=== PATIENT | female | born 1965 | race Two or more races ===

== ENCOUNTER 2018-05-07 16:17 | Inpatient (IN) | payer OTHER ==
[~2018-05-07] VITALS: Ht 144.8 cm; Wt 68.9 kg
[2018-05-07 16:22] VITALS: BP 130/82
[2018-05-07] MEDS ORDERED: Morphine Sulfate 4mg/ml Inj (IV USE ONLY) IVP ONE ×2 (16:45→18:00)
[2018-05-07] MEDS ORDERED: Ketorolac 30mg Inj IV ONE (16:45)
[2018-05-07 17:23] LABS: APPEARANCE,URINE SLIGHTLY CLOUDY; BASOPHILS % (AUTO) 0.9 % (0.0-2.0); BILIRUBIN, URINE NEGATIVE (NEGATIVE); EOSINOPHILS % (AUTO) 0.3 % (0.0-3.0); GLUCOSE, URINE (UA) 1+ (NEGATIVE); HEMOGLOBIN 14.6 G/DL (12.0-16.0); KETONES,URINE 2+ (NEGATIVE); LEUKOCYTE ESTERASE ,URINE 1+ (NEGATIVE); LYMPHOCYTES % (AUTO) 25.5 % (20.0-45.0); MEAN CORPUSCULAR VOLUME 88 FL (80-99); MONOCYTES % (AUTO) 3.7 % (1.0-10.0); NEUTROPHILS % (AUTO) 69.7 % (45.0-75.0); NITRITE,URINE NEGATIVE (NEGATIVE); PH,URINE 5 (4.5-8.0); PLATELET COUNT 227 K/UL (150-450); PROTEIN,URINE 1+ (NEGATIVE); RED BLOOD COUNT 5.21 M/UL (4.20-5.40); UROBILINOGEN,URINE 1 MG/DL (0.0-1.0); WHITE BLOOD COUNT 12.4 K/UL (4.8-10.8)
[2018-05-07 17:24] LABS: COLOR,URINE YELLOW
--- NOTE | 2018-05-07 17:27 | Emergency Room Report ---
History of Present Illness General Chief Complaint: Abdominal Pain Source: Patient Present Illness HPI Patient presents with 2 weeks of left flank pain. He rates down into her groin. She was seen by her doctor a week ago. Her doctor didn't perform any tests including urinalysis. He told her the pain was all in her head. She queried whether she might have a kidney stone and he said no that wasn't the problem. She occasionally has chills. When the pain gets severe she has nausea and vomiting. 2 days ago she passed a small amount of blood in the urine. She denies dysuria per se. She reports the pain is severe 10/10 and mostly constant. The pain is in her left flank and radiates to her groin. The patient is status post oophorectomy it's been 2 years since her last menstruation. She denies any diarrhea. No chest pain, palpitations, diarrhea, shortness of breath, depression, visual changes, headache. Allergies: Coded Allergies: No Known Allergies (Unverified , 05/07/18) Patient History Past Medical History: see triage record Social History: Denies: smoking, alcohol use, drug use Social History Narrative at home Reviewed Nursing Documentation: PMH: Agreed; PSxH: Agreed Nursing Documentation-PMH Past Medical History: No History, Except For Hx Diabetes: Yes Review of Systems All Other Systems: negative except mentioned in HPI Physical Exam Vital Signs Date Time Temp Pulse Resp B/P (MAP) Pulse Ox O2 Delivery O2 Flow Rate FiO2 05/07/18 16:22 98.2 80 16 130/82 99 Room Air Sp02 EP Interpretation: reviewed, normal General Appearance: well appearing, no apparent distress, GCS 15 Head: normocephalic Eyes: bilateral eye normal inspection, bilateral eye PERRL ENT: moist mucus membranes Neck: supple Respiratory: lungs clear, normal breath sounds Cardiovascular #1: regular rate, rhythm Cardiovascular #2: 2+ radial (R) Gastrointestinal: normal inspection, normal bowel sounds, non tender, no mass, non-distended Genitourinary: CVA tenderness (L) Musculoskeletal: back normal, gait/station normal, normal range of motion Neurologic: alert, oriented x3, grossly normal Psychiatric: anxious - And in pain Skin: normal inspection, warm/dry Medical Decision Making Diagnostic Impression: Primary Impression: Pyelonephritis Additional Impression: Intractable left flank pain ER Course Patient presents with left flank pain. Differential includes renal stone, pyelonephritis, diverticulitis amongst others. Evaluation will be with labs and CT abdomen pelvis. The patient will be treated with IV hydration and analgesia. Labs significant for leukocytosis. Also there is pyuria. Patient still with severe pain. Dilaudid ordered. Antibiotics ordered. CT with questionable calcification near the floor of the bladder (see full report below). I discussed the possibility of renal stone with the radiologist who feels that these are phleboliths. Patient still in severe pain. Dilaudid is repeated. Due to the unknown etiology of the severe pain and the possibility of pyelonephritis the patient is admitted for further evaluation and treatment. Laboratory Tests Test 05/07/18 17:05 05/08/18 04:00 White Blood Count 12.4 K/UL (4.8-10.8) H 10.0 K/UL (4.8-10.8) Red Blood Count 5.21 M/UL (4.20-5.40) 4.04 M/UL (4.20-5.40) L Hemoglobin 14.6 G/DL (12.0-16.0) 11.6 G/DL (12.0-16.0) L Hematocrit 46.0 % (37.0-47.0) 35.9 % (37.0-47.0) L Mean Corpuscular Volume 88 FL (80-99) 89 FL (80-99) Mean Corpuscular Hemoglobin 28.0 PG (27.0-31.0) 28.8 PG (27.0-31.0) Mean Corpuscular Hemoglobin Concent 31.6 G/DL (32.0-36.0) L 32.4 G/DL (32.0-36.0) Red Cell Distribution Width 13.0 % (11.6-14.8) 13.1 % (11.6-14.8) Platelet Count 227 K/UL (150-450) 258 K/UL (150-450) Mean Platelet Volume 8.2 FL (6.5-10.1) 6.4 FL (6.5-10.1) L Neutrophils (%) (Auto) 69.7 % (45.0-75.0) 70.6 % (45.0-75.0) Lymphocytes (%) (Auto) 25.5 % (20.0-45.0) 23.0 % (20.0-45.0) Monocytes (%) (Auto) 3.7 % (1.0-10.0) 5.1 % (1.0-10.0) Eosinophils (%) (Auto) 0.3 % (0.0-3.0) 0.7 % (0.0-3.0) Basophils (%) (Auto) 0.9 % (0.0-2.0) 0.6 % (0.0-2.0) Urine Color Yellow Urine Appearance Slightly cloudy Urine pH 5 (4.5-8.0) Urine Specific [place] 1.025 (1.005-1.035) Urine Protein 1+ (NEGATIVE) H Urine Glucose (UA) 1+ (NEGATIVE) H Urine Ketones 2+ (NEGATIVE) H Urine Blood 1+ (NEGATIVE) H Urine Nitrite Negative (NEGATIVE) Urine Bilirubin Negative (NEGATIVE) Urine Urobilinogen 1 MG/DL (0.0-1.0) H Urine Leukocyte Esterase 1+ (NEGATIVE) H Urine RBC 0-2 /HPF (0 - 2) Urine WBC 10-15 /HPF (0 - 2) H Urine Squamous Epithelial Cells Moderate /LPF (NONE/OCC) H Urine Bacteria Few /HPF (NONE) Sodium Level 139 MMOL/L (136-145) 142 MMOL/L (136-145) Potassium Level 4.5 MMOL/L (3.5-5.1) 3.8 MMOL/L (3.5-5.1) Chloride Level 101 MMOL/L (98-107) 107 MMOL/L (98-107) Carbon Dioxide Level 25 MMOL/L (21-32) 25 MMOL/L (21-32) Anion Gap 13 mmol/L (5-15) 10 mmol/L (5-15) Blood Urea Nitrogen 13 mg/dL (7-18) 17 mg/dL (7-18) Creatinine 1.0 MG/DL (0.55-1.30) 0.9 MG/DL (0.55-1.30) Estimate Glomerular Filtration Rate 58.7 mL/min (>60) > 60 mL/min (>60) Glucose Level 222 MG/DL (74-106) H 203 MG/DL (74-106) H Calcium Level 9.5 MG/DL (8.5-10.1) 8.4 MG/DL (8.5-10.1) L Total Bilirubin 0.2 MG/DL (0.2-1.0) 0.2 MG/DL (0.2-1.0) Aspartate Amino Transferase (AST) 26 U/L (15-37) 17 U/L (15-37) Alanine Aminotransferase (ALT) 31 U/L (12-78) 27 U/L (12-78) Alkaline Phosphatase 112 U/L (46-116) 95 U/L (46-116) Total Protein 8.7 G/DL (6.4-8.2) H 6.9 G/DL (6.4-8.2) Albumin 3.6 G/DL (3.4-5.0) 2.9 G/DL (3.4-5.0) L Globulin 5.1 g/dL 4.0 g/dL Albumin/Globulin Ratio 0.7 (1.0-2.7) L 0.7 (1.0-2.7) L Lipase 153 U/L (73-393) Hemoglobin A1c 12.0 % (4.3-6.0) H Phosphorus Level 4.0 MG/DL (2.5-4.9) Magnesium Level 1.5 MG/DL (1.8-2.4) L Rhythm Strip Diag. Results EP Interpretation: yes Rhythm: NSR, no PVC's, no ectopy CT/MRI/US Diagnostic Results CT/MRI/US Diagnostic Results : Imaging Test Ordered: Abdomen/pelvis Impression Impression: 2 mm calculus in or adjacent to the floor the bladder, could represent a recently passed stone. However, there is no evidence of hydronephrosis, hydroureter, or perinephric inflammation to suggest such otherwise. Gastric distention, presumably related to recent meal as no definite obstructive lesion is demonstrated at the left lung base No other acute findings Two right lower lobe 2 mm nodules. There is no significant smoking history, no further follow-up is necessary. There is significant smoking history or other risk factors for lung carcinoma, then short interval follow-up in 6-12 months is recommended Evidence old granulomatous disease Last Vital Signs Date Time Temp Pulse Resp B/P (MAP) Pulse Ox O2 Delivery O2 Flow Rate FiO2 05/08/18 08:00 98.2 86 18 124/68 (86 97 05/08/18 03:20 Room Air Status: improved Disposition: ADMITTED INPATIENT Condition: Serious Scripts Unable to Obtain Active Prescriptions or Reported Meds Hrarison Denise MD May 07, 2018 17:27
[2018-05-07] MEDS ORDERED: cefTRIAXone 1 GM in NS 55 ML IVPB ONE (17:45)
[2018-05-07 17:50] LABS: ANION GAP 13 mmol/L (5-15); BLOOD UREA NITROGEN 13 mg/dL (7-18); CALCIUM 9.5 MG/DL (8.5-10.1); CARBON DIOXIDE 25 MMOL/L (21-32); CHLORIDE 101 MMOL/L (98-107); POTASSIUM 4.5 MMOL/L (3.5-5.1); SODIUM 139 MMOL/L (136-145)
[2018-05-07 17:55] LABS: ALANINE AMINOTRANSFERASE 31 U/L (12-78); ALBUMIN 3.6 G/DL (3.4-5.0); ALBUMIN/GLOBULIN RATIO 0.7 (1.0-2.7); ALKALINE PHOSPHATASE 112 U/L (46-116); ASPARTATE AMINO TRANSFERASE 26 U/L (15-37); BILIRUBIN,TOTAL 0.2 MG/DL (0.2-1.0)
[2018-05-07 18:54] VITALS: BP 120/73
[2018-05-07] MEDS ORDERED: HYDROmorphone 1mg/ml Carpuject IVP ONE ×2 (19:30→23:00)
--- NOTE | 2018-05-07 19:35 | NUR ---
ED Nurse Note: RECIEVED REPORT FROM AM NURSE TO RESUME CARE, PT IN BED AWAKE, ALERT AND ORIENTED X 4, PT IS CRYING DUE TO ABDOMINAL PAIN, PT HAS BEEN MEDICTED WITH MORPHINE X 2 AND STATES NOT EFFECTIVE, MD AT BEDSIDE AND WILL ORDER NEW MEDS, PT IS ON CARDIAC MONITORING, IV SITE PATENT, WILL RESUME CARE ORDERED AND PREPARE FOR HOSPITAL ADMISSION FOR PYELONEPHRITIS.
[2018-05-07 20:00] VITALS: BP 155/79
--- NOTE | 2018-05-07 21:00 | NUR ---
ED Nurse Note: pt continues to rest in bed, awake and alert, pt medicated for pain, states meds not really effective, pt rates pain at 7/10 and constantly asking for more pain meds, pt is to be admitted to hospital, attempted to do med rec, pt can not recall any of her meds, states she takes 3 meds daily for depression and also takes insulin, pt has no one whom can bring meds or recall them to her, pt states maybe her daughter can bring them in am, pt iv site patent, fluids infusing, deneis cp, no sob or labored breathing, remains on cardiac monitoring, will resume care as ordered and continue to closely monitor.
[2018-05-07 21:30] VITALS: BP 161/80
--- NOTE | 2018-05-07 23:00 | NUR ---
ED Nurse Note: Pt has room for admission, pt continues to state her pain is at 10/10, md at bedside and speaking with pt, pt appears sedated, eyes red and pt sleeping but states she feels no better, remains with iv fluids as ordered, will continue to closely monitor and preapre for admission.
[2018-05-07 23:15] VITALS: BP 117/67
--- NOTE | 2018-05-07 23:35 | NUR ---
ED Nurse Note: PT HAS ROOM FOR ADMISISON, REPORT CALLED TO ARMINDA ARANDA ON FLOOR, PT IS IN BED AWAKE AND ALERT, IV SITE PATENT WITH FLUIDS INFUSING, PT TOLERATING WELL, PT CONTINUES TO STATE HER PAIN IS AT 10/10, NO CP, NO SOB OR LABORED BREATHING, BELONGINGS LIST COMPLETED, PT BEING TAKEN TO FLOOR BED VIA GURNEY WITH [facility], NAD NOTED DURING PT TRANSFER TO FLOOR FOR ADMISSION.
--- NOTE | 2018-05-08 01:13 | NUR ---
NURSE NOTES: Patient arrived from ED @ 0000 patient is aox4. VSS, [place] speaking. Left flank pain 10/10, ambulatory. Oriented to room, Side rails upx2. Bed low, call light within reach.
[2018-05-08] MEDS: HYDROmorphone 1mg/ml Carpuject IVP PRN ×6 (02:11→19:08)
[2018-05-08 04:00] VITALS: BP 124/71
[2018-05-08] MEDS: Heparin 5000 units/ml inj SUBQ SCH ×3 (06:34→22:32)
[2018-05-08] MEDS: NovoLOG Insulin Flexpen SUBQ SCH ×4 (06:35→22:30)
[2018-05-08] MEDS ORDERED: Zolpidem 5mg tab ORAL PRN (07:15)
[2018-05-08 08:00] VITALS: BP 124/68
[2018-05-08 08:00] LABS: ALANINE AMINOTRANSFERASE 27 U/L (12-78); ALBUMIN 2.9 G/DL (3.4-5.0); ALBUMIN/GLOBULIN RATIO 0.7 (1.0-2.7); ALKALINE PHOSPHATASE 95 U/L (46-116); ANION GAP 10 mmol/L (5-15); ASPARTATE AMINO TRANSFERASE 17 U/L (15-37); BILIRUBIN,TOTAL 0.2 MG/DL (0.2-1.0); BLOOD UREA NITROGEN 17 mg/dL (7-18); CALCIUM 8.4 MG/DL (8.5-10.1); CARBON DIOXIDE 25 MMOL/L (21-32); CHLORIDE 107 MMOL/L (98-107); CREATININE 0.9 MG/DL (0.55-1.30); POTASSIUM 3.8 MMOL/L (3.5-5.1); SODIUM 142 MMOL/L (136-145)
--- NOTE | 2018-05-08 08:05 | NUR ---
NURSE NOTES: Received patient on bed, awake. IV site dislodged. Will attempt to start new one. Bed in low and locked position, call light within reach. No signs of respiratory distress or pain. Room board updated, will continue to monitor.
[2018-05-08 08:15] LABS: BASOPHILS % (AUTO) 0.6 % (0.0-2.0); EOSINOPHILS % (AUTO) 0.7 % (0.0-3.0); HEMATOCRIT 35.9 % (37.0-47.0); HEMOGLOBIN 11.6 G/DL (12.0-16.0); MEAN CORPUSCULAR VOLUME 89 FL (80-99); MONOCYTES % (AUTO) 5.1 % (1.0-10.0); NEUTROPHILS % (AUTO) 70.6 % (45.0-75.0); PLATELET COUNT 258 K/UL (150-450); RED BLOOD COUNT 4.04 M/UL (4.20-5.40); RED CELL DISTRIBUTION WIDTH 13.1 % (11.6-14.8)
--- NOTE | 2018-05-08 08:29 | NUR ---
HAND-OFF: Report given to ARMINDA gipson. Patient stable.
--- NOTE | 2018-05-08 08:37 | Diagnostic Imaging Report ---
Indication: Abdominal pain Technique: Spiral acquisitions obtained through the abdomen and pelvis. No oral or IV contrast utilized, per urinary stone protocol. Multiplanar reconstructions were generated. Total dose length product 925.68 mGycm. CTDIvol(s) 18.16 mGy. Dose reduction achieved using automated exposure control Comparison: none Findings: No renal or ureteral calculi, hydronephrosis, or hydroureter. As no downstream obstructive lesion is demonstrated. However, a 2 mm calcification is seen at the floor of the bladder. Uncertain as to whether intraluminal or intramural. There is no perinephric fat stranding. Lack of IV contrast limits assessment of the renal parenchyma; no gross renal parenchymal mass or cyst demonstrated. Lack of IV contrast limits assessment of the other solid organs. The gallbladder is nondistended. No definite gallstones. Liver, bile ducts, pancreas, spleen, adrenals are all unremarkable. No retroperitoneal or mesenteric mass or adenopathy. No pelvic mass or adenopathy. Uterus and ovaries are unremarkable. The stomach is distended with food. The duodenum and small bowel are normal in caliber. The appendix is normal. No evidence of diverticulosis or diverticulitis. No free or loculated intraperitoneal gas or fluid is evident. The distal esophagus is unremarkable. Two 2 mm nodules are seen at the right lung base, one on image 4 series 7 and the other on image 22. There is also a calcified nodule at the left lung base The bones demonstrate degenerative spondylosis changes. Impression: 2 mm calculus in or adjacent to the floor the bladder, could represent a recently passed stone. However, there is no evidence of hydronephrosis, hydroureter, or perinephric inflammation to suggest such otherwise. Gastric distention, presumably related to recent meal as no definite obstructive lesion is demonstrated at the left lung base No other acute findings Two right lower lobe 2 mm nodules. There is no significant smoking history, no further follow-up is necessary. There is significant smoking history or other risk factors for lung carcinoma, then short interval follow-up in 6-12 months is recommended Evidence old granulomatous disease This agrees with the preliminary interpretation provided overnight by [facility]. The CT scanner at [facility] is accredited by the [employer] and the scans are performed using protocols designed to limit radiation exposure to as low as reasonably achievable to attain images of sufficient resolution adequate for diagnostic evaluation.
--- NOTE | 2018-05-08 14:54 | NUR ---
NURSE NOTES: QAccidentally threw dilaudid dose in 314 sharp container before giving to patient and after scanning the medication. Pharmacy was notified and spoke to Willy who stated to waste the dose and undo admin scan and take out another dose from [facility]. Charge nurse Supriya was notified and wawste recorded. New dose given. [facility] notified mas well to attempt to get medication from sharps container to waste properly.
--- NOTE | 2018-05-08 14:55 | Diagnostic Imaging Report ---
Indication: Flank pain Technique: Grayscale and duplex images of the kidneys, retroperitoneum, and bladder were obtained. Comparison: Reference made to abdomen pelvis CT 05/07/2018 Findings: Right kidney measures 11.9 cm in length. Left kidney measures 13 cm in length. Both kidneys demonstrate normal echogenicity. There is minimal fullness of the left renal collecting system but no eder hydronephrosis. No focal abnormality. Normal inferior vena cava. Bladder demonstrates a hyperechoic focus at the floor, corresponding to the finding described on recent CT scan, although measuring larger than the CT abnormality 7 mm. Bilateral ureteral jets are demonstrated. Impression: Possible bladder floor calculus, may correspond to finding reported on recent CT scan and could represent a recently passed stone, versus a mural calcification Negative for hydronephrosis or other significant abnormality.
--- NOTE | 2018-05-08 14:58 | NUR ---
NURSE NOTES: Spoke to Elena of [facility] who stated that [facility] does not have the ability to access the sharps container and that tehy are sent as is to the contractor. Charge nurse made aware.
[2018-05-08 16:00] VITALS: BP 106/59
--- NOTE | 2018-05-08 16:30 | NUR ---
NURSE NOTES: Scheduled sliding scale novolog not given as patient is not wanting to eat. Charge nurse made aware.
[2018-05-08] MEDS: cefTRIAXone 1 GM in D5W 55 ML IVPB SCH (17:43)
--- NOTE | 2018-05-08 17:44 | History & Physical ---
History and Physical History & Physicial Garcia Augustine MD May 08, 2018 17:44
--- NOTE | 2018-05-08 19:45 | NUR ---
HAND-OFF: Report given to RN Cleheidi.
--- NOTE | 2018-05-08 19:49 | NUR ---
NURSE NOTES: Received report from ARMINDA Terry.
--- NOTE | 2018-05-08 22:15 | Consultation ---
DATE OF CONSULTATION: 05/08/2018 CONSULTING PHYSICIAN: Jasson Livingston M.D. REFERRING PHYSICIAN: Garcia Augustine M.D. REASON FOR CONSULTATION: Evaluation of abdominal pain. HISTORY OF PRESENT ILLNESS: This is a 52-year-old female. She was admitted to the hospital because of left-sided abdominal flank pain. She has some urinary frequency. There was a question of hematuria. Urology evaluation requested. The patient is still having pain at this time. PAST MEDICAL HISTORY: Significant for diabetes. CURRENT MEDICATIONS: List is was reviewed. ALLERGIES: No known drug allergies. SOCIAL HISTORY: Nonsmoker. PHYSICAL EXAMINATION: GENERAL: No acute distress. VITAL SIGNS: Temperature is 98. ABDOMEN: Soft. Slightly tender on the left side. No significant CVA tenderness. LABORATORY DATA: UA showed 10 to 15 WBCs, 1+ protein, 0 to 2 RBCs. White count is 10.0, hemoglobin 11.6. BUN is 17, creatinine 0.9. Her urine culture is pending. DIAGNOSTIC IMAGING STUDIES: The patient had a CT scan of the abdomen and pelvis yesterday. There was no renal or ureteral calculi. There was no hydronephrosis. There was mention of a 2 mm calcification in the bladder. She had a renal ultrasound also, which did not show any hydronephrosis. There was some minimal fullness of left renal collecting system. IMPRESSION: 1. Abdominal pain, etiology uncertain, possibly secondary to a recently passed ureteral calculus. 2. Hematuria history. 3. Pyuria. 4. Proteinuria. 5. Urinary frequency. 6. Small bladder calculus. PLAN AND DISCUSSION: The patient did have left-sided pain. This could possibly because of the recently passed stone. However, at this time, there was no residual stones in the ureter or hydronephrosis and she may just have pain from irritation of the ureter and I would recommend just monitoring clinically. Other etiologies can also be considered. At some point, she can have a cystoscopy to evaluate the bladder. The above was discussed with the patient and her . Thank you for this consultation. Jasson Livingston M.D. DR: UDAY JOB#: [id number] CC:
[2018-05-08] MEDS: LATUDA 60 MG ORAL SCH (22:28)
[2018-05-08] MEDS: TraZODone 100mg tab ORAL SCH (22:28)
[2018-05-08] MEDS: Norco 5mg/325mg tab ORAL PRN (22:29)
--- NOTE | 2018-05-08 23:32 | NUR ---
NURSE NOTES: Patient is aox4 vss no shorness of breath. [place] given for pain. Benadryl given for itching. Due meds given, needs attended to. Bed low, call light within reach.
[2018-05-09] VITALS: BP 98/46
--- NOTE | 2018-05-09 01:30 | History and Physical Report ---
DATE OF ADMISSION: 05/07/2018 CHIEF COMPLAINT: Left flank pain. HISTORY OF PRESENT ILLNESS: This is a 52-year-old female with past medical history significant for diabetes type 2, morbid obesity, history of ovariectomy two years ago, who was presented to the emergency room complaining about the left flank pain, progressively worsening for past two weeks, pain radiated down to the groin and seen by her primary doctor a week ago. Her doctor did not perform any test or urinalysis. Pain became progressively worsening. Shortly after initial evaluation in the emergency, the patient was admitted to hospital with left flank pain, possible pyelonephritis versus renal calculus. PAST MEDICAL HISTORY AND PAST SURGICAL HISTORY: As above. History of diabetes type 2, morbid obesity, and history of ovariectomy. MEDICATIONS AT HOME: Please refer to medication reconciliation. ALLERGIES: No known drug allergies. SOCIAL HISTORY: Denies any smoking, alcohol, or drugs. FAMILY HISTORY: Noncontributory. REVIEW OF SYSTEMS: Mostly as above. PHYSICAL EXAMINATION: VITAL SIGNS: On admission, temperature 98.2 degrees, pulse of 80, respirations 16, and blood pressure 130/82. GENERAL: The patient is awake, responsive, and not in acute distress. HEENT: Head and neck examination, pupils are reactive to light. Extraocular movements are intact. Neck was supple. No JVD. LUNGS: Good air entry. No wheezing or rales. HEART: S1 and S2. Distant heart sounds. No murmurs or gallops. ABDOMEN: Soft, morbidly obese, tender in the left flank area, left lower quadrant. No rebound tenderness. No fluid shift. EXTREMITIES: No cyanosis, clubbing, or edema. NEUROLOGIC: Cranial nerves II through XII grossly intact. Motor is 5/5 in all extremities. Gait is intact. LABORATORY AND IMAGING DATA: On admission from the ER, WBC of 12, hemoglobin of 14, hematocrit 46, and platelet is 227,000. Sodium 139, potassium 4.5, chloride 101, bicarbonate 25, BUN of 13, creatinine 1.0, and glucose is 222. Hemoglobin A1c is 12. Calcium is 9.5. AST of 26 and ALT of 31. Urinalysis +1 protein, +1 glucose, ketone +2, 10 to 15 WBC, and +1 leukocytes. The patient has CT scan of the abdomen done in the ER, which noted to be 2 mm calculi in or adjacent to the floor of the bladder, could represent recently passed stone. However, no evidence of the hydronephrosis, hydrouria, or perinephric inflammation to suggest otherwise gastric distention, presumably related to the recent ____ as no definitive obstructive lesion is demonstrated at the left lung base. No other acute finding to right lower lobe 2 mm nodule. There is no evidence of the smoking history. No further followup necessary. Evidence of the old granulomatous disease. ASSESSMENT: 1. Left flank pain as well as left lower quadrant abdominal pain, possible due to renal calculi, however, cannot rule out infectious etiology such as UTI or pyelonephritis. 2. Diabetes type 2. 3. Morbid obesity. PLAN: Admit the patient to medical floor. We will follow up with cultures, broad-spectrum antibiotic Rocephin, and Accu-Chek with sliding scale. Discussed the case with Dr. Livingston from Urology. Code status is Full Code. DVT prophylaxis. Heparin subcutaneous. We will follow up with a renal ultrasound to rule out any possibility of the obstruction. Garcia Augustine M.D. DR: FRANCISCO JOB#: [id number] CC:
[2018-05-09 04:00] VITALS: BP 127/69
[2018-05-09] MEDS: NovoLOG Insulin Flexpen SUBQ SCH ×4 (06:30→20:13)
[2018-05-09] MEDS: HYDROmorphone 1mg/ml Carpuject IVP PRN ×3 (06:48→20:32)
[2018-05-09] MEDS: Heparin 5000 units/ml inj SUBQ SCH ×3 (06:49→21:05)
[2018-05-09 07:08] LABS: EOSINOPHILS % (AUTO) 1.5 % (0.0-3.0); HEMATOCRIT 36.5 % (37.0-47.0); LYMPHOCYTES % (AUTO) 37.3 % (20.0-45.0); MEAN CORPUSCULAR VOLUME 87 FL (80-99); MONOCYTES % (AUTO) 5.7 % (1.0-10.0); NEUTROPHILS % (AUTO) 54.5 % (45.0-75.0); PLATELET COUNT 277 K/UL (150-450); RED BLOOD COUNT 4.19 M/UL (4.20-5.40); RED CELL DISTRIBUTION WIDTH 12.8 % (11.6-14.8); WHITE BLOOD COUNT 6.3 K/UL (4.8-10.8)
[2018-05-09 07:18] LABS: ANION GAP 5 mmol/L (5-15); BLOOD UREA NITROGEN 4 mg/dL (7-18); CALCIUM 9.2 MG/DL (8.5-10.1); CARBON DIOXIDE 30 MMOL/L (21-32); CHLORIDE 107 MMOL/L (98-107); CREATININE 0.7 MG/DL (0.55-1.30); PHOSPHORUS 4.5 MG/DL (2.5-4.9); POTASSIUM 4.2 MMOL/L (3.5-5.1); SODIUM 141 MMOL/L (136-145)
[2018-05-09 08:00] VITALS: BP 145/62
[2018-05-09] MEDS: LORazepam 1mg tab ORAL SCH ×2 (08:39→18:31)
[2018-05-09] MEDS: metFORMIN 500mg tab ORAL SCH ×2 (08:40→18:30)
[2018-05-09] MEDS: Citalopram Hydrobromide 10mg Tab ORAL SCH (08:40)
[2018-05-09] MEDS: Norco 5mg/325mg tab ORAL PRN ×2 (08:41→17:06)
--- NOTE | 2018-05-09 08:49 | NUR ---
HAND-OFF: Report given to ARMINDA Baker. Patient stable.
--- NOTE | 2018-05-09 08:51 | NUR ---
NURSE NOTES: Received pt from ARMINDA Ugalde. pt was resting c/o lefts side flank pain. assisted to use bathroom, no acute distress
--- NOTE | 2018-05-09 09:18 | Urology Progress Note ---
Assessment/Plan Assessment/Plan 1. Abdominal pain, etiology uncertain, possibly secondary to a recently passed ureteral calculus. 2. Hematuria history. 3. Pyuria. 4. Proteinuria. 5. Urinary frequency. 6. Small bladder calculus. still with pain monitor clinically f/u on urine cx on abx Subjective Allergies: Coded Allergies: No Known Allergies (Unverified , 05/07/18) Subjective all noted, still with pain Objective Last 24 Hour Vital Signs Date Time Temp Pulse Resp B/P (MAP) Pulse Ox O2 Delivery O2 Flow Rate FiO2 05/09/18 04:00 98.4 77 17 127/69 (88) 98 05/09/18 00:00 98.5 83 17 98/46 (63) 98 05/08/18 21:00 Room Air 05/08/18 16:00 98.2 83 16 106/59 (75) 94 Intake and Output 05/08/18 05/09/18 19:00 07:00 Intake Total 730 ml 1145 ml Balance 730 ml 1145 ml Intake Oral 320 ml IV Total 730 ml 825 ml # Voids 2 Microbiology Date/Time Source Procedure Growth Status 05/08/18 12:30 Urine,Clean Catch Urine Culture - Preliminary NO GROWTH Resulted Current Medications Medications (Trade) Dose Ordered Sig/Edil Route PRN Reason Start Time Stop Time Status Last Admin Dose Admin Acetaminophen (Tylenol) 650 mg Q6H PRN ORAL Mild Pain/Temp > 100.5 05/08/18 01:30 06/07/18 01:29 Acetaminophen/ Hydrocodone Bitart ([place] 5/325) 1 tab Q6H PRN ORAL Moderate Pain (Pain Scale 4-6) 05/08/18 07:00 05/15/18 06:59 05/09/18 08:41 Ceftriaxone Sodium 1 gm/ Dextrose 55 ml @ 110 mls/hr Q24H IVPB 05/08/18 17:00 05/15/18 16:59 05/08/18 17:43 Citalopram Hydrobromide (celeXA) 40 mg DAILY ORAL 05/09/18 09:00 06/08/18 08:59 05/09/18 08:40 Dextrose (Dextrose 50%) 25 ml Q30M PRN IV Hypoglycemia 05/08/18 01:30 06/07/18 01:29 Dextrose (Dextrose 50%) 50 ml Q30M PRN IV Hypoglycemia 05/08/18 01:30 06/07/18 01:29 Diphenhydramine HCl (Benadryl) 25 mg Q6H PRN ORAL Itching 05/08/18 15:45 06/07/18 15:44 05/09/18 08:43 Heparin Sodium (Porcine) (Heparin 5000 units/ml) 5,000 units EVERY 8 HOURS SUBQ 05/08/18 06:00 06/07/18 05:59 05/09/18 06:49 Hydromorphone HCl (Dilaudid) 1 mg Q4H PRN IVP Severe Pain (Pain Scale 7-10) 05/08/18 01:30 05/15/18 01:29 05/09/18 06:48 Insulin Aspart (NovoLOG) BEFORE MEALS AND HS SUBQ 05/08/18 06:30 06/07/18 06:29 05/08/18 22:30 Lorazepam (Ativan) 1 mg BID ORAL 05/09/18 09:00 05/16/18 08:59 05/09/18 08:39 Metformin HCl (Glucophage) 1,000 mg BID ORAL 05/09/18 09:00 06/08/18 08:59 05/09/18 08:40 Ondansetron HCl (Zofran) 4 mg Q4H PRN IVP Nausea & Vomiting 05/08/18 01:30 06/07/18 01:29 Patient Own Medication (Patient's Own Med) 1 ea QPM ORAL 05/08/18 20:32 06/07/18 20:31 05/08/18 22:28 Sodium Chloride 1,000 ml @ 75 mls/hr [id number] IV 05/08/18 02:00 06/07/18 01:59 05/09/18 04:40 Trazodone HCl (Desyrel) 300 mg BEDTIME ORAL 05/08/18 21:00 06/07/18 20:59 05/08/18 22:28 Zolpidem Tartrate (Ambien) 5 mg HSPRN PRN ORAL Insomnia 05/08/18 07:15 05/15/18 07:14 Laboratory Tests 05/09/18 05:45: White Blood Count 6.3, Red Blood Count 4.19L, Hemoglobin 12.0, Hematocrit 36.5L , Mean Corpuscular Volume 87, Mean Corpuscular Hemoglobin 28.6, Mean Corpuscular Hemoglobin Concent 32.8, Red Cell Distribution Width 12.8, Platelet Count 277, Mean Platelet Volume 7.2, Neutrophils (%) (Auto) 54.5, Lymphocytes (% ) (Auto) 37.3, Monocytes (%) (Auto) 5.7, Eosinophils (%) (Auto) 1.5, Basophils ( %) (Auto) 1.0, Sodium Level 141, Potassium Level 4.2, Chloride Level 107, Carbon Dioxide Level 30, Anion Gap 5, Blood Urea Nitrogen 4L, Creatinine 0.7, Estimat Glomerular Filtration Rate > 60, Glucose Level 154H, Calcium Level 9.2, Phosphorus Level 4.5, Magnesium Level 1.7L Height (Feet): 5 Height (Inches): 0.00 Weight (Pounds): 180 Objective exam Jasson Livingston MD May 09, 2018 09:18
[2018-05-09 12:00] VITALS: BP 120/74
--- NOTE | 2018-05-09 13:38 | NUR ---
CASE MANAGEMENT: INITIAL REVIEW 52 YO F BIBA FROM HOME CC: ABD PAIN PMHx: DM SI:PYELONEPHRITIS. INTRACTABLE FALNK PAIN. T 98.2 HR 80 RR 16 B/P 130/82 SATS 99% ON RA WBC 12.4 GLU 222 IS: TORADOL IV X1 ZOFRAN IV X1 MORPHINE IV X1 NS BOLUS X2 CEFTRIAXONE IV X1 DILAUDID IV X1 PATIENT TO BE ADMITTED TO MED/SURG 05/07/2018 @ 2006 DCP: PATIENT TO BE DISCHARGED TO HOME ONCE MEDICALLY CLEARED. PLAN OF CARE: follow up with cultures broad-spectrum antibiotic Rocephin Accu-Chek with sliding scale
[2018-05-09 16:00] VITALS: BP 118/76
[2018-05-09] MEDS: LATUDA 60 MG ORAL SCH (17:12)
[2018-05-09] MEDS: cefTRIAXone 1 GM in D5W 55 ML IVPB SCH (18:31)
--- NOTE | 2018-05-09 19:08 | Internal Med Progress Note ---
Subjective Date of Service: May 09, 2018 Physician Name Robbie Woodard Attending Physician Garcia Augustine MD Current Medications Medications (Trade) Dose Ordered Sig/Edil Route PRN Reason Start Time Stop Time Status Last Admin Dose Admin Acetaminophen (Tylenol) 650 mg Q6H PRN ORAL Mild Pain/Temp > 100.5 05/08/18 01:30 06/07/18 01:29 Acetaminophen/ Hydrocodone Bitart ([place] 5/325) 1 tab Q6H PRN ORAL Moderate Pain (Pain Scale 4-6) 05/08/18 07:00 05/15/18 06:59 05/09/18 17:06 Ceftriaxone Sodium 1 gm/ Dextrose 55 ml @ 110 mls/hr Q24H IVPB 05/08/18 17:00 05/15/18 16:59 05/09/18 18:31 Citalopram Hydrobromide (celeXA) 40 mg DAILY ORAL 05/09/18 09:00 06/08/18 08:59 05/09/18 08:40 Dextrose (Dextrose 50%) 25 ml Q30M PRN IV Hypoglycemia 05/08/18 01:30 06/07/18 01:29 Dextrose (Dextrose 50%) 50 ml Q30M PRN IV Hypoglycemia 05/08/18 01:30 06/07/18 01:29 Diphenhydramine HCl (Benadryl) 25 mg Q6H PRN ORAL Itching 05/08/18 15:45 06/07/18 15:44 05/09/18 08:43 Heparin Sodium (Porcine) (Heparin 5000 units/ml) 5,000 units EVERY 8 HOURS SUBQ 05/08/18 06:00 06/07/18 05:59 05/09/18 15:25 Hydromorphone HCl (Dilaudid) 1 mg Q4H PRN IVP Severe Pain (Pain Scale 7-10) 05/08/18 01:30 05/15/18 01:29 05/09/18 12:26 Insulin Aspart (NovoLOG) BEFORE MEALS AND HS SUBQ 05/08/18 06:30 06/07/18 06:29 05/09/18 17:11 Lorazepam (Ativan) 1 mg BID ORAL 05/09/18 09:00 05/16/18 08:59 05/09/18 18:31 Metformin HCl (Glucophage) 1,000 mg BID ORAL 05/09/18 09:00 06/08/18 08:59 05/09/18 18:30 Ondansetron HCl (Zofran) 4 mg Q4H PRN IVP Nausea & Vomiting 05/08/18 01:30 06/07/18 01:29 Patient Own Medication (Patient's Own Med) 1 ea QPM ORAL 05/08/18 20:32 06/07/18 20:31 05/09/18 17:12 Sodium Chloride 1,000 ml @ 75 mls/hr [id number] IV 05/08/18 02:00 06/07/18 01:59 05/09/18 18:00 Trazodone HCl (Desyrel) 300 mg BEDTIME ORAL 05/08/18 21:00 06/07/18 20:59 05/08/18 22:28 Zolpidem Tartrate (Ambien) 5 mg HSPRN PRN ORAL Insomnia 05/08/18 07:15 05/15/18 07:14 Allergies: Coded Allergies: No Known Allergies (Unverified , 05/07/18) ROS Limited/Unobtainable: No Constitutional: Reports: no symptoms HEENT: Reports: no symptoms Cardiovascular: Reports: no symptoms Respiratory: Reports: no symptoms Gastrointestinal/Abdominal: Reports: no symptoms Genitourinary: Reports: no symptoms Neurologic/Psychiatric: Reports: no symptoms Subjective 52 YO F admitted with flank pain and lower abdominal pain. Now pyelonephritis. Cover for Int Jarred-Dr Augustine Objective Last Vital Signs Date Time Temp Pulse Resp B/P (MAP) Pulse Ox O2 Delivery O2 Flow Rate FiO2 05/09/18 16:00 98.1 74 18 118/76 (90) 96 05/09/18 09:00 Room Air Laboratory Tests Test 05/09/18 05:45 White Blood Count 6.3 K/UL (4.8-10.8) Red Blood Count 4.19 M/UL (4.20-5.40) L Hemoglobin 12.0 G/DL (12.0-16.0) Hematocrit 36.5 % (37.0-47.0) L Mean Corpuscular Volume 87 FL (80-99) Mean Corpuscular Hemoglobin 28.6 PG (27.0-31.0) Mean Corpuscular Hemoglobin Concent 32.8 G/DL (32.0-36.0) Red Cell Distribution Width 12.8 % (11.6-14.8) Platelet Count 277 K/UL (150-450) Mean Platelet Volume 7.2 FL (6.5-10.1) Neutrophils (%) (Auto) 54.5 % (45.0-75.0) Lymphocytes (%) (Auto) 37.3 % (20.0-45.0) Monocytes (%) (Auto) 5.7 % (1.0-10.0) Eosinophils (%) (Auto) 1.5 % (0.0-3.0) Basophils (%) (Auto) 1.0 % (0.0-2.0) Sodium Level 141 MMOL/L (136-145) Potassium Level 4.2 MMOL/L (3.5-5.1) Chloride Level 107 MMOL/L (98-107) Carbon Dioxide Level 30 MMOL/L (21-32) Anion Gap 5 mmol/L (5-15) Blood Urea Nitrogen 4 mg/dL (7-18) L Creatinine 0.7 MG/DL (0.55-1.30) Estimat Glomerular Filtration Rate > 60 mL/min (>60) Glucose Level 154 MG/DL (74-106) H Calcium Level 9.2 MG/DL (8.5-10.1) Phosphorus Level 4.5 MG/DL (2.5-4.9) Magnesium Level 1.7 MG/DL (1.8-2.4) L Microbiology Date/Time Source Procedure Growth Status 05/08/18 12:30 Urine,Clean Catch Urine Culture - Preliminary NO GROWTH Resulted 05/07/18 17:05 Urine,Clean Catch Urine Culture - Final Mixed Gram Positive Organism Complete Intake and Output 05/08/18 05/09/18 19:00 07:00 Intake Total 730 ml 1145 ml Balance 730 ml 1145 ml Intake Oral 320 ml IV Total 730 ml 825 ml # Voids 2 Objective PHYSICAL EXAMINATION: GENERAL: The patient is awake, responsive, and not in acute distress. HEENT: Head and neck examination, pupils are reactive to light. Extraocular movements are intact. Neck was supple. No JVD. LUNGS: Good air entry. No wheezing or rales. HEART: S1 and S2. Distant heart sounds. No murmurs or gallops. ABDOMEN: Soft, morbidly obese, tender in the left flank area, left lower quadrant. No rebound tenderness. No fluid shift. EXTREMITIES: No cyanosis, clubbing, or edema. NEUROLOGIC: Cranial nerves II through XII grossly intact. Motor is 5/5 in all extremities. Gait is intact. Assessment/Plan Assessment/Plan ASSESSMENT: 1. Left flank pain as well as left lower quadrant abdominal pain, possible due to renal calculi, however, cannot rule out infectious etiology such as UTI or pyelonephritis. 2. Diabetes type 2. 3. Morbid obesity. PLAN: Admit the patient to medical floor. Urine culture=mixed gram pos cocci Continue Rocephin, and Accu-Chek with sliding scale. Discussed the case with Dr. Livingston from Urology. Code status is Full Code. DVT prophylaxis. Heparin subcutaneous. We will follow up with a renal ultrasound to rule out any possibility of the obstruction. Robbie Woodard MD May 09, 2018 19:08
--- NOTE | 2018-05-09 19:56 | NUR ---
NURSE NOTES: Received patient AOx4, able to verbalize needs, c/o 5/10 pain, will give PRN pain medication when due. IV site asymptomatic, dressing dry and intact, IVF running at 75ml/hr. Bed on lowest position, 2 side rails up, call light and belongings within reach. Will monitor blood glucose closely.
[2018-05-09 20:00] VITALS: BP 110/67
--- NOTE | 2018-05-09 20:00 | NUR ---
HAND-OFF: Report given to ARMINDA Blunt. pt is stable.
[2018-05-09] MEDS: TraZODone 100mg tab ORAL SCH (20:13)
[2018-05-10] VITALS (7 sets, daily range): BP systolic 104–136; BP diastolic 49–65
[2018-05-10] MEDS: Heparin 5000 units/ml inj SUBQ SCH ×3 (05:47→21:15)
[2018-05-10] MEDS: NovoLOG Insulin Flexpen SUBQ SCH ×4 (06:05→21:29)
[2018-05-10 06:41] LABS: BASOPHILS % (AUTO) 0.7 % (0.0-2.0); EOSINOPHILS % (AUTO) 0.6 % (0.0-3.0); HEMOGLOBIN 11.7 G/DL (12.0-16.0); LYMPHOCYTES % (AUTO) 24.5 % (20.0-45.0); MEAN CORPUSCULAR VOLUME 87 FL (80-99); NEUTROPHILS % (AUTO) 70.2 % (45.0-75.0); PLATELET COUNT 271 K/UL (150-450); RED BLOOD COUNT 4.12 M/UL (4.20-5.40); RED CELL DISTRIBUTION WIDTH 12.7 % (11.6-14.8); WHITE BLOOD COUNT 8.4 K/UL (4.8-10.8)
[2018-05-10 06:44] LABS: ANION GAP 7 mmol/L (5-15); BLOOD UREA NITROGEN 5 mg/dL (7-18); CARBON DIOXIDE 27 MMOL/L (21-32); CHLORIDE 108 MMOL/L (98-107); CREATININE 0.8 MG/DL (0.55-1.30); POTASSIUM 4.1 MMOL/L (3.5-5.1); SODIUM 142 MMOL/L (136-145)
--- NOTE | 2018-05-10 07:15 | NUR ---
HAND-OFF: Report given to ARMINDA Corea. Patient stable with no s/s of acute distress.
--- NOTE | 2018-05-10 07:20 | NUR ---
NURSE NOTES: Report received from outgoing RN, rounds made. Patient asleep in bed, right lateral supine position. IVF infusing to right hand, as ordered, site asymptomatic. No SOB/distress noted. Call light in reach, bed in lowest position. Will continue to monitor.
--- NOTE | 2018-05-10 09:08 | Urology Progress Note ---
Assessment/Plan Assessment/Plan 1. Abdominal pain, etiology uncertain, possibly secondary to a recently passed ureteral calculus. 2. Hematuria history. 3. Pyuria. 4. Proteinuria. 5. Urinary frequency. 6. Small bladder calculus. still with pain monitor clinically f/u on blood cx on abx further imaging? Subjective Allergies: Coded Allergies: No Known Allergies (Unverified , 05/07/18) Subjective all noted, still with pain Objective Last 24 Hour Vital Signs Date Time Temp Pulse Resp B/P (MAP) Pulse Ox O2 Delivery O2 Flow Rate FiO2 05/10/18 04:00 97.3 62 18 110/65 (80) 96 05/10/18 00:00 98.0 65 16 105/49 (67) 97 05/09/18 21:00 Room Air 05/09/18 20:00 98.3 66 16 110/67 (81) 96 05/09/18 16:00 98.1 74 18 118/76 (90) 96 05/09/18 12:00 98.0 72 18 120/74 (89) 95 Intake and Output 05/09/18 05/10/18 19:00 07:00 Intake Total 525 ml 1125 ml Balance 525 ml 1125 ml Intake Oral 300 ml IV Total 75 ml 825 ml Other 450 ml # Voids 4 3 Microbiology Date/Time Source Procedure Growth Status 05/08/18 02:09 Blood Blood Culture - Preliminary NO GROWTH AFTER 48 HOURS Resulted 05/08/18 12:30 Urine,Clean Catch Urine Culture - Final Mixed Gram Positive Organism Complete Current Medications Medications (Trade) Dose Ordered Sig/Edil Route PRN Reason Start Time Stop Time Status Last Admin Dose Admin Acetaminophen (Tylenol) 650 mg Q6H PRN ORAL Mild Pain/Temp > 100.5 05/08/18 01:30 06/07/18 01:29 Acetaminophen/ Hydrocodone Bitart ([place] 5/325) 1 tab Q6H PRN ORAL Moderate Pain (Pain Scale 4-6) 05/08/18 07:00 05/15/18 06:59 05/09/18 17:06 Ceftriaxone Sodium 1 gm/ Dextrose 55 ml @ 110 mls/hr Q24H IVPB 05/08/18 17:00 05/15/18 16:59 05/09/18 18:31 Citalopram Hydrobromide (celeXA) 40 mg DAILY ORAL 05/09/18 09:00 06/08/18 08:59 05/09/18 08:40 Dextrose (Dextrose 50%) 25 ml Q30M PRN IV Hypoglycemia 05/08/18 01:30 06/07/18 01:29 Dextrose (Dextrose 50%) 50 ml Q30M PRN IV Hypoglycemia 05/08/18 01:30 06/07/18 01:29 Diphenhydramine HCl (Benadryl) 25 mg Q6H PRN ORAL Itching 05/08/18 15:45 06/07/18 15:44 05/09/18 08:43 Heparin Sodium (Porcine) (Heparin 5000 units/ml) 5,000 units EVERY 8 HOURS SUBQ 05/08/18 06:00 06/07/18 05:59 05/09/18 21:05 Hydromorphone HCl (Dilaudid) 1 mg Q4H PRN IVP Severe Pain (Pain Scale 7-10) 05/08/18 01:30 05/15/18 01:29 05/09/18 20:32 Insulin Aspart (NovoLOG) BEFORE MEALS AND HS SUBQ 05/08/18 06:30 06/07/18 06:29 05/09/18 20:13 Lorazepam (Ativan) 1 mg BID ORAL 05/09/18 09:00 05/16/18 08:59 05/09/18 18:31 Metformin HCl (Glucophage) 1,000 mg BID ORAL 05/09/18 09:00 06/08/18 08:59 05/09/18 18:30 Ondansetron HCl (Zofran) 4 mg Q4H PRN IVP Nausea & Vomiting 05/08/18 01:30 06/07/18 01:29 Patient Own Medication (Patient's Own Med) 1 ea QPM ORAL 05/08/18 20:32 06/07/18 20:31 05/09/18 17:12 Sodium Chloride 1,000 ml @ 75 mls/hr [id number] IV 05/08/18 02:00 06/07/18 01:59 05/09/18 18:00 Trazodone HCl (Desyrel) 300 mg BEDTIME ORAL 05/08/18 21:00 06/07/18 20:59 05/09/18 20:13 Zolpidem Tartrate (Ambien) 5 mg HSPRN PRN ORAL Insomnia 05/08/18 07:15 05/15/18 07:14 Laboratory Tests 05/10/18 05:40: White Blood Count 8.4, Red Blood Count 4.12L, Hemoglobin 11.7L, Hematocrit 36.0L , Mean Corpuscular Volume 87, Mean Corpuscular Hemoglobin 28.5, Mean Corpuscular Hemoglobin Concent 32.5, Red Cell Distribution Width 12.7, Platelet Count 271, Mean Platelet Volume 7.2, Neutrophils (%) (Auto) 70.2, Lymphocytes (% ) (Auto) 24.5, Monocytes (%) (Auto) 4.0, Eosinophils (%) (Auto) 0.6, Basophils ( %) (Auto) 0.7, Sodium Level 142, Potassium Level 4.1, Chloride Level 108H, Carbon Dioxide Level 27, Anion Gap 7, Blood Urea Nitrogen 5L, Creatinine 0.8, Estimat Glomerular Filtration Rate > 60, Glucose Level 121H, Calcium Level 9.0 Height (Feet): 5 Height (Inches): 0.00 Weight (Pounds): 180 Objective exam Jasson Livingston MD May 10, 2018 09:08
[2018-05-10] MEDS: Citalopram Hydrobromide 10mg Tab ORAL SCH (10:02)
[2018-05-10] MEDS: LORazepam 1mg tab ORAL SCH ×2 (10:02→17:49)
[2018-05-10] MEDS: metFORMIN 500mg tab ORAL SCH ×2 (10:02→17:49)
[2018-05-10] MEDS: HYDROmorphone 1mg/ml Carpuject IVP PRN ×2 (10:04→17:49)
[2018-05-10] MEDS: Norco 5mg/325mg tab ORAL PRN ×2 (12:50→21:24)
[2018-05-10] MEDS: LATUDA 60 MG ORAL SCH (17:48)
[2018-05-10] MEDS: cefTRIAXone 1 GM in D5W 55 ML IVPB SCH (17:48)
--- NOTE | 2018-05-10 18:49 | Internal Med Progress Note ---
Subjective Date of Service: May 10, 2018 Physician Name Woodard,Robbie Attending Physician Garcia Augustine MD Current Medications Medications (Trade) Dose Ordered Sig/Edil Route PRN Reason Start Time Stop Time Status Last Admin Dose Admin Acetaminophen (Tylenol) 650 mg Q6H PRN ORAL Mild Pain/Temp > 100.5 05/08/18 01:30 06/07/18 01:29 Acetaminophen/ Hydrocodone Bitart ([place] 5/325) 1 tab Q6H PRN ORAL Moderate Pain (Pain Scale 4-6) 05/08/18 07:00 05/15/18 06:59 05/10/18 12:50 Ceftriaxone Sodium 1 gm/ Dextrose 55 ml @ 110 mls/hr Q24H IVPB 05/08/18 17:00 05/15/18 16:59 05/10/18 17:48 Citalopram Hydrobromide (celeXA) 40 mg DAILY ORAL 05/09/18 09:00 06/08/18 08:59 05/10/18 10:02 Dextrose (Dextrose 50%) 25 ml Q30M PRN IV Hypoglycemia 05/08/18 01:30 06/07/18 01:29 Dextrose (Dextrose 50%) 50 ml Q30M PRN IV Hypoglycemia 05/08/18 01:30 06/07/18 01:29 Diphenhydramine HCl (Benadryl) 25 mg Q6H PRN ORAL Itching 05/08/18 15:45 06/07/18 15:44 05/10/18 10:15 Heparin Sodium (Porcine) (Heparin 5000 units/ml) 5,000 units EVERY 8 HOURS SUBQ 05/08/18 06:00 06/07/18 05:59 05/10/18 14:29 Hydromorphone HCl (Dilaudid) 1 mg Q4H PRN IVP Severe Pain (Pain Scale 7-10) 05/08/18 01:30 05/15/18 01:29 05/10/18 17:49 Insulin Aspart (NovoLOG) BEFORE MEALS AND HS SUBQ 05/08/18 06:30 06/07/18 06:29 05/10/18 17:45 Lorazepam (Ativan) 1 mg BID ORAL 05/09/18 09:00 05/16/18 08:59 05/10/18 17:49 Metformin HCl (Glucophage) 1,000 mg BID ORAL 05/09/18 09:00 06/08/18 08:59 05/10/18 17:49 Ondansetron HCl (Zofran) 4 mg Q4H PRN IVP Nausea & Vomiting 05/08/18 01:30 06/07/18 01:29 Patient Own Medication (Patient's Own Med) 1 ea QPM ORAL 05/08/18 20:32 06/07/18 20:31 05/10/18 17:48 Sodium Chloride 1,000 ml @ 75 mls/hr [id number] IV 05/08/18 02:00 06/07/18 01:59 05/10/18 11:09 Trazodone HCl (Desyrel) 300 mg BEDTIME ORAL 05/08/18 21:00 06/07/18 20:59 05/09/18 20:13 Zolpidem Tartrate (Ambien) 5 mg HSPRN PRN ORAL Insomnia 05/08/18 07:15 05/15/18 07:14 Allergies: Coded Allergies: No Known Allergies (Unverified , 05/07/18) ROS Limited/Unobtainable: No Constitutional: Reports: no symptoms HEENT: Reports: no symptoms Cardiovascular: Reports: no symptoms Respiratory: Reports: no symptoms Gastrointestinal/Abdominal: Reports: abdominal pain Genitourinary: Reports: no symptoms Neurologic/Psychiatric: Reports: no symptoms Subjective 52 YO F admitted with flank pain and lower abdominal pain. Now pyelonephritis. Cover for Int Jarred-Dr Augustine Objective Last Vital Signs Date Time Temp Pulse Resp B/P (MAP) Pulse Ox O2 Delivery O2 Flow Rate FiO2 05/10/18 16:00 98.2 66 16 117/65 (82) 100 05/10/18 09:00 Room Air Laboratory Tests Test 05/10/18 05:40 White Blood Count 8.4 K/UL (4.8-10.8) Red Blood Count 4.12 M/UL (4.20-5.40) L Hemoglobin 11.7 G/DL (12.0-16.0) L Hematocrit 36.0 % (37.0-47.0) L Mean Corpuscular Volume 87 FL (80-99) Mean Corpuscular Hemoglobin 28.5 PG (27.0-31.0) Mean Corpuscular Hemoglobin Concent 32.5 G/DL (32.0-36.0) Red Cell Distribution Width 12.7 % (11.6-14.8) Platelet Count 271 K/UL (150-450) Mean Platelet Volume 7.2 FL (6.5-10.1) Neutrophils (%) (Auto) 70.2 % (45.0-75.0) Lymphocytes (%) (Auto) 24.5 % (20.0-45.0) Monocytes (%) (Auto) 4.0 % (1.0-10.0) Eosinophils (%) (Auto) 0.6 % (0.0-3.0) Basophils (%) (Auto) 0.7 % (0.0-2.0) Sodium Level 142 MMOL/L (136-145) Potassium Level 4.1 MMOL/L (3.5-5.1) Chloride Level 108 MMOL/L (98-107) H Carbon Dioxide Level 27 MMOL/L (21-32) Anion Gap 7 mmol/L (5-15) Blood Urea Nitrogen 5 mg/dL (7-18) L Creatinine 0.8 MG/DL (0.55-1.30) Estimat Glomerular Filtration Rate > 60 mL/min (>60) Glucose Level 121 MG/DL (74-106) H Calcium Level 9.0 MG/DL (8.5-10.1) Microbiology Date/Time Source Procedure Growth Status 05/08/18 02:09 Blood Blood Culture - Preliminary NO GROWTH AFTER 48 HOURS Resulted 05/08/18 01:50 Blood Blood Culture - Preliminary NO GROWTH AFTER 48 HOURS Resulted 05/08/18 12:30 Urine,Clean Catch Urine Culture - Final Mixed Gram Positive Organism Complete Intake and Output 05/09/18 05/10/18 18:59 06:59 Intake Total 450 ml 1200 ml Balance 450 ml 1200 ml Intake Oral 300 ml IV Total 900 ml Other 450 ml # Voids 4 3 Objective PHYSICAL EXAMINATION: GENERAL: The patient is awake, responsive, and not in acute distress. HEENT: Head and neck examination, pupils are reactive to light. Extraocular movements are intact. Neck was supple. No JVD. LUNGS: Good air entry. No wheezing or rales. HEART: S1 and S2. Distant heart sounds. No murmurs or gallops. ABDOMEN: Soft, morbidly obese, tender in the left flank area, left lower quadrant. No rebound tenderness. No fluid shift. EXTREMITIES: No cyanosis, clubbing, or edema. NEUROLOGIC: Cranial nerves II through XII grossly intact. Motor is 5/5 in all extremities. Gait is intact. Assessment/Plan Assessment/Plan ASSESSMENT: 1. Left flank pain as well as left lower quadrant abdominal pain, UTI and pyelonephritis. 2. Diabetes type 2. 3. Morbid obesity. PLAN: Admit the patient to medical floor. Urine culture=mixed gram pos cocci Continue Rocephin, and Accu-Chek with sliding scale. Discussed the case with Dr. Livingston from Urology. Code status is Full Code. DVT prophylaxis. Heparin subcutaneous. We will follow up with a renal ultrasound to rule out any possibility of the obstruction. Robbie Woodard MD May 10, 2018 18:48
--- NOTE | 2018-05-10 19:35 | NUR ---
HAND-OFF: Report given to Mariann HILLIARD.
--- NOTE | 2018-05-10 19:36 | NUR ---
NURSE NOTES: Received report & pt from ARMINDA Corea. Pt lying in bed, a&ox4, [place] speaking & understands little Yoruba, family members at bedside, in room air. No s/s of acute distress & no c/o pain at this time. IV site intact with IVF running as ordered. Bed in lowest position, call light within reach. Will continue to monitor.
[2018-05-10] MEDS: TraZODone 100mg tab ORAL SCH (21:14)
[2018-05-11 04:00] VITALS: BP 93/57
[2018-05-11] MEDS: NovoLOG Insulin Flexpen SUBQ SCH ×4 (06:08→21:00)
[2018-05-11] MEDS: Heparin 5000 units/ml inj SUBQ SCH ×3 (06:08→21:17)
[2018-05-11] MEDS: HYDROmorphone 1mg/ml Carpuject IVP PRN ×3 (06:14→17:40)
[2018-05-11 07:03] LABS: BASOPHILS % (AUTO) 0.8 % (0.0-2.0); EOSINOPHILS % (AUTO) 0.7 % (0.0-3.0); HEMATOCRIT 35.5 % (37.0-47.0); HEMOGLOBIN 11.5 G/DL (12.0-16.0); LYMPHOCYTES % (AUTO) 23.3 % (20.0-45.0); MEAN CORPUSCULAR VOLUME 87 FL (80-99); MONOCYTES % (AUTO) 4.6 % (1.0-10.0); NEUTROPHILS % (AUTO) 70.6 % (45.0-75.0); PLATELET COUNT 268 K/UL (150-450); RED BLOOD COUNT 4.08 M/UL (4.20-5.40); WHITE BLOOD COUNT 9.8 K/UL (4.8-10.8)
[2018-05-11 07:05] LABS: ANION GAP 9 mmol/L (5-15); BLOOD UREA NITROGEN 5 mg/dL (7-18); CALCIUM 9.1 MG/DL (8.5-10.1); CARBON DIOXIDE 26 MMOL/L (21-32); CHLORIDE 107 MMOL/L (98-107); CREATININE 0.7 MG/DL (0.55-1.30); POTASSIUM 3.8 MMOL/L (3.5-5.1); SODIUM 142 MMOL/L (136-145)
[2018-05-11] MEDS: Norco 5mg/325mg tab ORAL PRN ×3 (07:30→21:16)
--- NOTE | 2018-05-11 07:31 | NUR ---
HAND-OFF: Report given to ARMINDA Longo.
--- NOTE | 2018-05-11 07:51 | NUR ---
NURSE NOTES: Received report from ARMINDA Waite. Rounding done with outgoing nurse. Patient a/o x4 lying on the bed. No respiratory distress noted. c/o pain on left flank 12/01. Night nurse will give the pain medicine as ordered. Patient state last BM was 05/07. Will f/u. Questions answered. Bed in lowest position, call light within reach. Will continue to monitor.
[2018-05-11 08:00] VITALS: BP 111/58
[2018-05-11] MEDS: LORazepam 1mg tab ORAL SCH ×2 (08:44→17:35)
[2018-05-11] MEDS: metFORMIN 500mg tab ORAL SCH ×2 (08:44→17:35)
[2018-05-11] MEDS: Citalopram Hydrobromide 10mg Tab ORAL SCH (08:44)
--- NOTE | 2018-05-11 11:42 | Urology Progress Note ---
Assessment/Plan Assessment/Plan 1. Abdominal pain, etiology uncertain, possibly secondary to a recently passed ureteral calculus. 2. Hematuria history. 3. Pyuria. 4. Proteinuria. 5. Urinary frequency. 6. Small bladder calculus. still with pain no obvious urologic source monitor clinically f/u on blood cx on abx further imaging? Subjective Allergies: Coded Allergies: No Known Allergies (Unverified , 05/07/18) Subjective all noted, still with pain Objective Last 24 Hour Vital Signs Date Time Temp Pulse Resp B/P (MAP) Pulse Ox O2 Delivery O2 Flow Rate FiO2 05/11/18 09:00 Room Air 05/11/18 08:00 98.2 70 18 111/58 (75) 95 05/11/18 04:00 97.9 60 16 93/57 (69) 96 05/10/18 23:56 98.7 73 17 104/58 (73) 96 05/10/18 21:00 Room Air 05/10/18 20:00 98.9 76 18 108/51 (70) 96 05/10/18 16:00 98.2 66 16 117/65 (82) 100 05/10/18 12:00 98.0 67 19 120/59 (79) 100 Intake and Output 05/10/18 05/11/18 19:00 07:00 Intake Total 865 ml 1215 ml Balance 865 ml 1215 ml Intake Oral 340 ml 240 ml IV Total 525 ml 975 ml # Voids 1 2 Microbiology Date/Time Source Procedure Growth Status 05/08/18 02:09 Blood Blood Culture - Preliminary NO GROWTH AFTER 72 HOURS Resulted 05/08/18 12:30 Urine,Clean Catch Urine Culture - Final Mixed Gram Positive Organism Complete Current Medications Medications (Trade) Dose Ordered Sig/Edil Route PRN Reason Start Time Stop Time Status Last Admin Dose Admin Acetaminophen (Tylenol) 650 mg Q6H PRN ORAL Mild Pain/Temp > 100.5 05/08/18 01:30 06/07/18 01:29 Acetaminophen/ Hydrocodone Bitart ([place] 5/325) 1 tab Q6H PRN ORAL Moderate Pain (Pain Scale 4-6) 05/08/18 07:00 05/15/18 06:59 05/11/18 07:30 Ceftriaxone Sodium 1 gm/ Dextrose 55 ml @ 110 mls/hr Q24H IVPB 05/08/18 17:00 05/15/18 16:59 05/10/18 17:48 Citalopram Hydrobromide (celeXA) 40 mg DAILY ORAL 05/09/18 09:00 06/08/18 08:59 05/11/18 08:44 Dextrose (Dextrose 50%) 25 ml Q30M PRN IV Hypoglycemia 05/08/18 01:30 06/07/18 01:29 Dextrose (Dextrose 50%) 50 ml Q30M PRN IV Hypoglycemia 05/08/18 01:30 06/07/18 01:29 Diphenhydramine HCl (Benadryl) 25 mg Q6H PRN ORAL Itching 05/08/18 15:45 06/07/18 15:44 05/11/18 11:12 Heparin Sodium (Porcine) (Heparin 5000 units/ml) 5,000 units EVERY 8 HOURS SUBQ 05/08/18 06:00 06/07/18 05:59 05/11/18 06:08 Hydromorphone HCl (Dilaudid) 1 mg Q4H PRN IVP Severe Pain (Pain Scale 7-10) 05/08/18 01:30 05/15/18 01:29 05/11/18 11:06 Insulin Aspart (NovoLOG) BEFORE MEALS AND HS SUBQ 05/08/18 06:30 06/07/18 06:29 05/11/18 06:08 Lorazepam (Ativan) 1 mg BID ORAL 05/09/18 09:00 05/16/18 08:59 05/11/18 08:44 Metformin HCl (Glucophage) 1,000 mg BID ORAL 05/09/18 09:00 06/08/18 08:59 05/11/18 08:44 Ondansetron HCl (Zofran) 4 mg Q4H PRN IVP Nausea & Vomiting 05/08/18 01:30 06/07/18 01:29 Patient Own Medication (Patient's Own Med) 1 ea QPM ORAL 05/08/18 20:32 06/07/18 20:31 05/10/18 17:48 Sodium Chloride 1,000 ml @ 75 mls/hr [id number] IV 05/08/18 02:00 06/07/18 01:59 05/11/18 10:51 Trazodone HCl (Desyrel) 300 mg BEDTIME ORAL 05/08/18 21:00 06/07/18 20:59 05/10/18 21:14 Zolpidem Tartrate (Ambien) 5 mg HSPRN PRN ORAL Insomnia 05/08/18 07:15 05/15/18 07:14 Laboratory Tests 05/11/18 05:50: White Blood Count 9.8, Red Blood Count 4.08L, Hemoglobin 11.5L, Hematocrit 35.5L , Mean Corpuscular Volume 87, Mean Corpuscular Hemoglobin 28.2, Mean Corpuscular Hemoglobin Concent 32.3, Red Cell Distribution Width 13.0, Platelet Count 268, Mean Platelet Volume 7.3, Neutrophils (%) (Auto) 70.6, Lymphocytes (% ) (Auto) 23.3, Monocytes (%) (Auto) 4.6, Eosinophils (%) (Auto) 0.7, Basophils ( %) (Auto) 0.8, Sodium Level 142, Potassium Level 3.8, Chloride Level 107, Carbon Dioxide Level 26, Anion Gap 9, Blood Urea Nitrogen 5L, Creatinine 0.7, Estimat Glomerular Filtration Rate > 60, Glucose Level 120H, Calcium Level 9.1 Height (Feet): 5 Height (Inches): 0.00 Weight (Pounds): 180 Objective exam Jasson Livingtson MD May 11, 2018 11:42
[2018-05-11 12:00] VITALS: BP 103/57
[2018-05-11 16:00] VITALS: BP 111/62
[2018-05-11] MEDS: cefTRIAXone 1 GM in D5W 55 ML IVPB SCH (16:57)
[2018-05-11] MEDS: LATUDA 60 MG ORAL SCH (16:58)
--- NOTE | 2018-05-11 17:17 | Internal Med Progress Note ---
Subjective Date of Service: May 11, 2018 Physician Name Woodard,Robbie Attending Physician Garcia Augustine MD Current Medications Medications (Trade) Dose Ordered Sig/Edil Route PRN Reason Start Time Stop Time Status Last Admin Dose Admin Acetaminophen (Tylenol) 650 mg Q6H PRN ORAL Mild Pain/Temp > 100.5 05/08/18 01:30 06/07/18 01:29 Acetaminophen/ Hydrocodone Bitart ([place] 5/325) 1 tab Q6H PRN ORAL Moderate Pain (Pain Scale 4-6) 05/08/18 07:00 05/15/18 06:59 05/11/18 13:32 Ceftriaxone Sodium 1 gm/ Dextrose 55 ml @ 110 mls/hr Q24H IVPB 05/08/18 17:00 05/15/18 16:59 05/11/18 16:57 Citalopram Hydrobromide (celeXA) 40 mg DAILY ORAL 05/09/18 09:00 06/08/18 08:59 05/11/18 08:44 Dextrose (Dextrose 50%) 25 ml Q30M PRN IV Hypoglycemia 05/08/18 01:30 06/07/18 01:29 Dextrose (Dextrose 50%) 50 ml Q30M PRN IV Hypoglycemia 05/08/18 01:30 06/07/18 01:29 Diphenhydramine HCl (Benadryl) 25 mg Q6H PRN ORAL Itching 05/08/18 15:45 06/07/18 15:44 05/11/18 11:12 Docusate Sodium (Colace) 100 mg TWICE A DAY ORAL 05/11/18 18:00 06/10/18 17:59 Heparin Sodium (Porcine) (Heparin 5000 units/ml) 5,000 units EVERY 8 HOURS SUBQ 05/08/18 06:00 06/07/18 05:59 05/11/18 13:31 Hydromorphone HCl (Dilaudid) 1 mg Q4H PRN IVP Severe Pain (Pain Scale 7-10) 05/08/18 01:30 05/15/18 01:29 05/11/18 11:06 Insulin Aspart (NovoLOG) BEFORE MEALS AND HS SUBQ 05/08/18 06:30 06/07/18 06:29 05/11/18 06:08 Lorazepam (Ativan) 1 mg BID ORAL 05/09/18 09:00 05/16/18 08:59 05/11/18 08:44 Metformin HCl (Glucophage) 1,000 mg BID ORAL 05/09/18 09:00 06/08/18 08:59 05/11/18 08:44 Naloxegol (Movantik) 25 mg DAILY ORAL 05/11/18 17:15 06/10/18 17:14 Ondansetron HCl (Zofran) 4 mg Q4H PRN IVP Nausea & Vomiting 05/08/18 01:30 06/07/18 01:29 Patient Own Medication (Patient's Own Med) 1 ea QPM ORAL 05/08/18 20:32 06/07/18 20:31 05/11/18 16:58 Sodium Chloride 1,000 ml @ 75 mls/hr [id number] IV 05/08/18 02:00 06/07/18 01:59 05/11/18 10:51 Trazodone HCl (Desyrel) 300 mg BEDTIME ORAL 05/08/18 21:00 06/07/18 20:59 05/10/18 21:14 Zolpidem Tartrate (Ambien) 5 mg HSPRN PRN ORAL Insomnia 05/08/18 07:15 05/15/18 07:14 Allergies: Coded Allergies: No Known Allergies (Unverified , 05/07/18) ROS Limited/Unobtainable: No Constitutional: Reports: no symptoms HEENT: Reports: no symptoms Cardiovascular: Reports: no symptoms Respiratory: Reports: no symptoms Gastrointestinal/Abdominal: Reports: abdominal pain - LLQ Genitourinary: Reports: no symptoms Neurologic/Psychiatric: Reports: no symptoms Subjective 52 YO F admitted with flank pain and lower abdominal pain. Now pyelonephritis. Cover for Int Med-Dr Augustine Objective Last Vital Signs Date Time Temp Pulse Resp B/P (MAP) Pulse Ox O2 Delivery O2 Flow Rate FiO2 05/11/18 12:00 98.3 65 18 103/57 (72) 98 05/11/18 09:00 Room Air Laboratory Tests Test 05/11/18 05:50 White Blood Count 9.8 K/UL (4.8-10.8) Red Blood Count 4.08 M/UL (4.20-5.40) L Hemoglobin 11.5 G/DL (12.0-16.0) L Hematocrit 35.5 % (37.0-47.0) L Mean Corpuscular Volume 87 FL (80-99) Mean Corpuscular Hemoglobin 28.2 PG (27.0-31.0) Mean Corpuscular Hemoglobin Concent 32.3 G/DL (32.0-36.0) Red Cell Distribution Width 13.0 % (11.6-14.8) Platelet Count 268 K/UL (150-450) Mean Platelet Volume 7.3 FL (6.5-10.1) Neutrophils (%) (Auto) 70.6 % (45.0-75.0) Lymphocytes (%) (Auto) 23.3 % (20.0-45.0) Monocytes (%) (Auto) 4.6 % (1.0-10.0) Eosinophils (%) (Auto) 0.7 % (0.0-3.0) Basophils (%) (Auto) 0.8 % (0.0-2.0) Sodium Level 142 MMOL/L (136-145) Potassium Level 3.8 MMOL/L (3.5-5.1) Chloride Level 107 MMOL/L (98-107) Carbon Dioxide Level 26 MMOL/L (21-32) Anion Gap 9 mmol/L (5-15) Blood Urea Nitrogen 5 mg/dL (7-18) L Creatinine 0.7 MG/DL (0.55-1.30) Estimat Glomerular Filtration Rate > 60 mL/min (>60) Glucose Level 120 MG/DL (74-106) H Calcium Level 9.1 MG/DL (8.5-10.1) Intake and Output 05/10/18 05/11/18 18:59 06:59 Intake Total 940 ml 1140 ml Balance 940 ml 1140 ml Intake Oral 340 ml 240 ml IV Total 600 ml 900 ml # Voids 1 2 Objective PHYSICAL EXAMINATION: GENERAL: The patient is awake, responsive, and not in acute distress. HEENT: Head and neck examination, pupils are reactive to light. Extraocular movements are intact. Neck was supple. No JVD. LUNGS: Good air entry. No wheezing or rales. HEART: S1 and S2. Distant heart sounds. No murmurs or gallops. ABDOMEN: Soft, morbidly obese, tender in the left flank area, left lower quadrant. No rebound tenderness. No fluid shift. EXTREMITIES: No cyanosis, clubbing, or edema. NEUROLOGIC: Cranial nerves II through XII grossly intact. Motor is 5/5 in all extremities. Gait is intact. Assessment/Plan Assessment/Plan ASSESSMENT: 1. Left flank pain as well as left lower quadrant abdominal pain, UTI and pyelonephritis. 2. Diabetes type 2. 3. Morbid obesity. PLAN: Admit the patient to medical floor. Gastroenterology consult for continued LLQ pain ?diverticulitis? CT=bladder stone Urine culture=mixed gram pos cocci Continue Rocephin, and Accu-Chek with sliding scale. Discussed the case with Dr. Livingston from Urology. Code status is Full Code. DVT prophylaxis. Heparin subcutaneous. We will follow up with a renal ultrasound to rule out any possibility of the obstruction. Robbie Woodard MD May 11, 2018 17:17
[2018-05-11] MEDS: Naloxegol Oxalate 25mg tab ORAL SCH (17:35)
[2018-05-11] MEDS: Docusate 100mg cap ORAL SCH (17:35)
--- NOTE | 2018-05-11 17:45 | NUR ---
NURSE NOTES: Dilaudid 1 mg IVP was given at 1658. Forgot to scan at that time. Spoke with Carl Wooden Box Maker.
--- NOTE | 2018-05-11 19:29 | NUR ---
HAND-OFF: Report given to ARMINDA Waite.
--- NOTE | 2018-05-11 19:30 | NUR ---
NURSE NOTES: Received report & pt from ARMINDA Longo. Pt lying in bed, a&ox4, Yi speaking & understands little Y[place]ut, in room air. No s/s of acute distress & c/o 9/10 pain at this time. Will give PRN pain med when due & pt verbalized understanding. IV site intact with IVF running as ordered. Bed in lowest position, call light within reach. Will continue to monitor.
[2018-05-11 20:00] VITALS: BP 140/72
[2018-05-11] MEDS: TraZODone 100mg tab ORAL SCH (21:16)
[2018-05-12] VITALS: BP 133/67
[2018-05-12] MEDS: HYDROmorphone 1mg/ml Carpuject IVP PRN ×5 (03:02→21:48)
[2018-05-12 03:51] VITALS: BP 122/59
[2018-05-12] MEDS: Norco 5mg/325mg tab ORAL PRN (06:14)
[2018-05-12] MEDS: Heparin 5000 units/ml inj SUBQ SCH ×3 (06:14→21:48)
[2018-05-12] MEDS: NovoLOG Insulin Flexpen SUBQ SCH ×4 (06:24→21:00)
--- NOTE | 2018-05-12 07:28 | NUR ---
HAND-OFF: Report given to ARMINDA Agarwal.
[2018-05-12 08:00] VITALS: BP 96/63
[2018-05-12 08:02] LABS: BASOPHILS % (AUTO) 0.8 % (0.0-2.0); EOSINOPHILS % (AUTO) 1.3 % (0.0-3.0); HEMATOCRIT 35.4 % (37.0-47.0); HEMOGLOBIN 11.5 G/DL (12.0-16.0); LYMPHOCYTES % (AUTO) 26.1 % (20.0-45.0); MEAN CORPUSCULAR VOLUME 87 FL (80-99); MONOCYTES % (AUTO) 3.7 % (1.0-10.0); NEUTROPHILS % (AUTO) 68.2 % (45.0-75.0); PLATELET COUNT 289 K/UL (150-450); RED BLOOD COUNT 4.04 M/UL (4.20-5.40); RED CELL DISTRIBUTION WIDTH 13.2 % (11.6-14.8); WHITE BLOOD COUNT 8.1 K/UL (4.8-10.8)
--- NOTE | 2018-05-12 08:12 | NUR ---
NURSE NOTES: AWAKE/ALERT. C/O SEVERE ABDOMINAL PAIN /SCALE 9/10. MEDICATED WITH DILAUDID 1MG IV ORDERED.IN NO ACUTE DISTRESS.
[2018-05-12 08:22] LABS: ANION GAP 10 mmol/L (5-15); BLOOD UREA NITROGEN 4 mg/dL (7-18); CALCIUM 8.6 MG/DL (8.5-10.1); CARBON DIOXIDE 26 MMOL/L (21-32); CHLORIDE 108 MMOL/L (98-107); CREATININE 0.7 MG/DL (0.55-1.30); POTASSIUM 3.7 MMOL/L (3.5-5.1); SODIUM 144 MMOL/L (136-145)
[2018-05-12] MEDS: LORazepam 1mg tab ORAL SCH ×2 (08:35→18:25)
[2018-05-12] MEDS: Naloxegol Oxalate 25mg tab ORAL SCH (08:35)
[2018-05-12] MEDS: metFORMIN 500mg tab ORAL SCH ×2 (08:35→18:25)
[2018-05-12] MEDS: Citalopram Hydrobromide 10mg Tab ORAL SCH (08:35)
[2018-05-12] MEDS: Docusate 100mg cap ORAL SCH ×2 (08:35→18:25)
--- NOTE | 2018-05-12 10:02 | Urology Progress Note ---
Assessment/Plan Assessment/Plan 1. Abdominal pain, etiology uncertain, possibly secondary to a recently passed ureteral calculus. 2. Hematuria history. 3. Pyuria. 4. Proteinuria. 5. Urinary frequency. 6. Small bladder calculus. still with pain no obvious urologic source monitor clinically f/u on blood cx on abx further imaging? dr. Mariee to see d/w Dr. Woodard Subjective Allergies: Coded Allergies: No Known Allergies (Unverified , 05/07/18) Subjective all noted, still with pain Objective Last 24 Hour Vital Signs Date Time Temp Pulse Resp B/P (MAP) Pulse Ox O2 Delivery O2 Flow Rate FiO2 05/12/18 09:00 Room Air 05/12/18 08:42 97.8 05/12/18 08:00 97.8 69 18 96/63 (74) 96 05/12/18 03:51 97.8 67 20 122/59 (80) 97 05/12/18 00:00 97.6 72 20 133/67 (89) 95 05/11/18 21:00 Room Air 05/11/18 20:00 98.3 74 20 140/72 (94) 95 05/11/18 16:00 99.0 63 18 111/62 (78) 98 05/11/18 12:00 98.3 65 18 103/57 (72) 98 Intake and Output 05/11/18 05/12/18 19:00 07:00 Intake Total 1191 ml 943 ml Balance 1191 ml 943 ml Intake Oral 236 ml 118 ml IV Total 955 ml 825 ml # Voids 5 Microbiology Date/Time Source Procedure Growth Status 05/08/18 02:09 Blood Blood Culture - Preliminary NO GROWTH AFTER 4 DAYS Resulted 05/08/18 12:30 Urine,Clean Catch Urine Culture - Final Mixed Gram Positive Organism Complete Current Medications Medications (Trade) Dose Ordered Sig/Edil Route PRN Reason Start Time Stop Time Status Last Admin Dose Admin Acetaminophen (Tylenol) 650 mg Q6H PRN ORAL Mild Pain/Temp > 100.5 05/08/18 01:30 06/07/18 01:29 Acetaminophen/ Hydrocodone Bitart ([place] 5/325) 1 tab Q6H PRN ORAL Moderate Pain (Pain Scale 4-6) 05/08/18 07:00 05/15/18 06:59 05/12/18 06:14 Ceftriaxone Sodium 1 gm/ Dextrose 55 ml @ 110 mls/hr Q24H IVPB 05/08/18 17:00 05/15/18 16:59 05/11/18 16:57 Citalopram Hydrobromide (celeXA) 40 mg DAILY ORAL 05/09/18 09:00 06/08/18 08:59 05/12/18 08:35 Dextrose (Dextrose 50%) 25 ml Q30M PRN IV Hypoglycemia 05/08/18 01:30 06/07/18 01:29 Dextrose (Dextrose 50%) 50 ml Q30M PRN IV Hypoglycemia 05/08/18 01:30 06/07/18 01:29 Diphenhydramine HCl (Benadryl) 25 mg Q6H PRN ORAL Itching 05/08/18 15:45 06/07/18 15:44 05/11/18 11:12 Docusate Sodium (Colace) 100 mg TWICE A DAY ORAL 05/11/18 18:00 06/10/18 17:59 05/12/18 08:35 Heparin Sodium (Porcine) (Heparin 5000 units/ml) 5,000 units EVERY 8 HOURS SUBQ 05/08/18 06:00 06/07/18 05:59 05/12/18 06:14 Hydromorphone HCl (Dilaudid) 1 mg Q4H PRN IVP Severe Pain (Pain Scale 7-10) 05/08/18 01:30 05/15/18 01:29 05/12/18 08:12 Insulin Aspart (NovoLOG) BEFORE MEALS AND HS SUBQ 05/08/18 06:30 06/07/18 06:29 05/12/18 06:24 Lorazepam (Ativan) 1 mg BID ORAL 05/09/18 09:00 05/16/18 08:59 05/12/18 08:35 Metformin HCl (Glucophage) 1,000 mg BID ORAL 05/09/18 09:00 06/08/18 08:59 05/12/18 08:35 Naloxegol (Movantik) 25 mg DAILY ORAL 05/11/18 17:15 06/10/18 17:14 05/12/18 08:35 Ondansetron HCl (Zofran) 4 mg Q4H PRN IVP Nausea & Vomiting 05/08/18 01:30 06/07/18 01:29 Patient Own Medication (Patient's Own Med) 1 ea QPM ORAL 05/08/18 20:32 06/07/18 20:31 05/11/18 16:58 Sodium Chloride 1,000 ml @ 75 mls/hr [id number] IV 05/08/18 02:00 06/07/18 01:59 05/11/18 23:57 Trazodone HCl (Desyrel) 300 mg BEDTIME ORAL 05/08/18 21:00 06/07/18 20:59 05/11/18 21:16 Zolpidem Tartrate (Ambien) 5 mg HSPRN PRN ORAL Insomnia 05/08/18 07:15 05/15/18 07:14 Laboratory Tests 05/12/18 07:01: White Blood Count 8.1, Red Blood Count 4.04L, Hemoglobin 11.5L, Hematocrit 35.4L , Mean Corpuscular Volume 87, Mean Corpuscular Hemoglobin 28.4, Mean Corpuscular Hemoglobin Concent 32.5, Red Cell Distribution Width 13.2, Platelet Count 289, Mean Platelet Volume 7.1, Neutrophils (%) (Auto) 68.2, Lymphocytes (% ) (Auto) 26.1, Monocytes (%) (Auto) 3.7, Eosinophils (%) (Auto) 1.3, Basophils ( %) (Auto) 0.8, Sodium Level 144, Potassium Level 3.7, Chloride Level 108H, Carbon Dioxide Level 26, Anion Gap 10, Blood Urea Nitrogen 4L, Creatinine 0.7, Estimat Glomerular Filtration Rate > 60, Glucose Level 127H, Calcium Level 8.6 Height (Feet): 5 Height (Inches): 0.00 Weight (Pounds): 180 Objective exam Jasson Livingston MD May 12, 2018 10:02
[2018-05-12 12:00] VITALS: BP 119/65
--- NOTE | 2018-05-12 13:01 | GI Initial Consult Note ---
History of Present Illness General Date patient seen: May 12, 2018 Time patient seen: 12:56 Reason for Hospitalization: Abdominal Pain Referring physician: KESHA EASTON Reason for Consultation: ABDOMINAL PAIN Present Illness HPI This is a 52-year-old female with past medical history significant for diabetes type 2, morbid obesity, history of ovariectomy two years ago, who was presented to the emergency room complaining about the left flank pain, progressively worsening for past two weeks, pain radiated down to the groin and seen by her primary doctor a week ago. Her doctor did not perform any test or urinalysis. Pain became progressively worsening. Shortly after initial evaluation in the emergency, the patient was admitted to hospital with left flank pain, possible pyelonephritis versus renal calculus. GI consulted for persistent abdominal pain. Initial HPI as noted above. Patient was seen, awake alert and oriented x4 no apparent distress with complaint of generalized abdominal pain. The patient more notably had epigastric pain and lower abdominal pain, tenderness to palpation, soft, nondistended. Has complaints of nausea and vomiting. The patient has no history of endoscopic or colonoscopy. Presents today with anemia and abdominal pain of unknown etiology. Home Meds Unable to Obtain Active Prescriptions or Reported Meds Med list reviewed/reconciled: Yes Allergies: Coded Allergies: No Known Allergies (Unverified , 05/07/18) Patient History History Provided By: Patient, Medical Record [facility] Narrative PAST MEDICAL HISTORY AND PAST SURGICAL HISTORY: As above. History of diabetes type 2, morbid obesity, and history of ovariectomy. Social History: Denies: smoking, alcohol use, drug use, other Review of Systems All Other Systems: negative except mentioned in HPI Physical Exam Vital Signs Date Time Temp Pulse Resp B/P (MAP) Pulse Ox O2 Delivery O2 Flow Rate FiO2 05/08/18 08:00 98.2 86 18 124/68 (86) 97 05/08/18 09:00 Room Air Sp02 EP Interpretation: reviewed, normal Labs Laboratory Tests Test 05/12/18 07:01 White Blood Count 8.1 K/UL (4.8-10.8) Red Blood Count 4.04 M/UL (4.20-5.40) L Hemoglobin 11.5 G/DL (12.0-16.0) L Hematocrit 35.4 % (37.0-47.0) L Mean Corpuscular Volume 87 FL (80-99) Mean Corpuscular Hemoglobin 28.4 PG (27.0-31.0) Mean Corpuscular Hemoglobin Concent 32.5 G/DL (32.0-36.0) Red Cell Distribution Width 13.2 % (11.6-14.8) Platelet Count 289 K/UL (150-450) Mean Platelet Volume 7.1 FL (6.5-10.1) Neutrophils (%) (Auto) 68.2 % (45.0-75.0) Lymphocytes (%) (Auto) 26.1 % (20.0-45.0) Monocytes (%) (Auto) 3.7 % (1.0-10.0) Eosinophils (%) (Auto) 1.3 % (0.0-3.0) Basophils (%) (Auto) 0.8 % (0.0-2.0) Sodium Level 144 MMOL/L (136-145) Potassium Level 3.7 MMOL/L (3.5-5.1) Chloride Level 108 MMOL/L (98-107) H Carbon Dioxide Level 26 MMOL/L (21-32) Anion Gap 10 mmol/L (5-15) Blood Urea Nitrogen 4 mg/dL (7-18) L Creatinine 0.7 MG/DL (0.55-1.30) Estimat Glomerular Filtration Rate > 60 mL/min (>60) Glucose Level 127 MG/DL (74-106) H Calcium Level 8.6 MG/DL (8.5-10.1) General Appearance: well appearing, no apparent distress, alert, obese Head: normocephalic EENT: PERRL/EOMI, normal ENT inspection Neck: supple Respiratory: normal breath sounds, no respiratory distress Cardiovascular: normal rate Gastrointestinal: normal inspection, non tender, soft, normal bowel sounds, non -distended Rectal: deferred Genitourinary: no CVA tenderness Musculoskeletal: normal inspection, back normal Neurologic: normal inspection, alert, oriented x3, responsive Psychiatric: normal inspection, judgement/insight normal, memory normal Skin: normal inspection, normal color, no rash, warm/dry, palpation normal, well hydrated Lymphatic: normal inspection, no adenopathy Current Medications Current Medications Medications (Trade) Dose Ordered Sig/Edil Route PRN Reason Start Time Stop Time Status Last Admin Dose Admin Acetaminophen (Tylenol) 650 mg Q6H PRN ORAL Mild Pain/Temp > 100.5 05/08/18 01:30 06/07/18 01:29 Acetaminophen/ Hydrocodone Bitart ([place] 5/325) 1 tab Q6H PRN ORAL Moderate Pain (Pain Scale 4-6) 05/08/18 07:00 05/15/18 06:59 05/12/18 06:14 Ceftriaxone Sodium 1 gm/ Dextrose 55 ml @ 110 mls/hr Q24H IVPB 05/08/18 17:00 05/15/18 16:59 05/11/18 16:57 Citalopram Hydrobromide (celeXA) 40 mg DAILY ORAL 05/09/18 09:00 06/08/18 08:59 05/12/18 08:35 Dextrose (Dextrose 50%) 25 ml Q30M PRN IV Hypoglycemia 05/08/18 01:30 06/07/18 01:29 Dextrose (Dextrose 50%) 50 ml Q30M PRN IV Hypoglycemia 05/08/18 01:30 06/07/18 01:29 Diphenhydramine HCl (Benadryl) 25 mg Q6H PRN ORAL Itching 05/08/18 15:45 06/07/18 15:44 05/11/18 11:12 Docusate Sodium (Colace) 100 mg TWICE A DAY ORAL 05/11/18 18:00 06/10/18 17:59 05/12/18 08:35 Heparin Sodium (Porcine) (Heparin 5000 units/ml) 5,000 units EVERY 8 HOURS SUBQ 05/08/18 06:00 06/07/18 05:59 05/12/18 06:14 Hydromorphone HCl (Dilaudid) 1 mg Q4H PRN IVP Severe Pain (Pain Scale 7-10) 05/08/18 01:30 05/15/18 01:29 05/12/18 12:12 Insulin Aspart (NovoLOG) BEFORE MEALS AND HS SUBQ 05/08/18 06:30 06/07/18 06:29 05/12/18 11:35 Lorazepam (Ativan) 1 mg BID ORAL 05/09/18 09:00 05/16/18 08:59 05/12/18 08:35 Metformin HCl (Glucophage) 1,000 mg BID ORAL 05/09/18 09:00 06/08/18 08:59 05/12/18 08:35 Naloxegol (Movantik) 25 mg DAILY ORAL 05/11/18 17:15 06/10/18 17:14 05/12/18 08:35 Ondansetron HCl (Zofran) 4 mg Q4H PRN IVP Nausea & Vomiting 05/08/18 01:30 06/07/18 01:29 Patient Own Medication (Patient's Own Med) 1 ea QPM ORAL 05/08/18 20:32 06/07/18 20:31 05/11/18 16:58 Sodium Chloride 1,000 ml @ 75 mls/hr [id number] IV 05/08/18 02:00 06/07/18 01:59 05/11/18 23:57 Trazodone HCl (Desyrel) 300 mg BEDTIME ORAL 05/08/18 21:00 06/07/18 20:59 05/11/18 21:16 Zolpidem Tartrate (Ambien) 5 mg HSPRN PRN ORAL Insomnia 05/08/18 07:15 05/15/18 07:14 GI: Plan Problems: (1) GERD (gastroesophageal reflux disease) (2) Anemia (3) Abdominal pain of unknown etiology (4) Abdominal pain (5) Pyelonephritis Plan EGD/colonoscopy to be scheduled tomorrow. - CLD, NPO @ NM. anemia work up OB stool r/o GI bleed monitor H&H, prn transfusions bowel regime ppi fu labs Will follow with additional recs post procedure. Seen with Dr. Mariee. Thank you for this patient referral. The patient was seen and examined at bedside and all new and available data was reviewed in the patients chart. I agree with the above findings, impression and plan. (Patient seen earlier today. Signature stamp does not reflect patient encounter time.). - MD Denia Jones,Jayne-Madan RESORT DESK CLERK May 12, 2018 13:01
--- NOTE | 2018-05-12 15:15 | Internal Med Progress Note ---
Subjective Date of Service: May 12, 2018 Physician Name WoodardRobbie Attending Physician Garcia Augustine MD Current Medications Medications (Trade) Dose Ordered Sig/Edil Route PRN Reason Start Time Stop Time Status Last Admin Dose Admin Acetaminophen (Tylenol) 650 mg Q6H PRN ORAL Mild Pain/Temp > 100.5 05/08/18 01:30 06/07/18 01:29 Acetaminophen/ Hydrocodone Bitart ([place] 5/325) 1 tab Q6H PRN ORAL Moderate Pain (Pain Scale 4-6) 05/08/18 07:00 05/15/18 06:59 05/12/18 06:14 Bisacodyl (Dulcolax) 10 mg ONCE ORAL 05/12/18 16:00 05/12/18 17:00 Ceftriaxone Sodium 1 gm/ Dextrose 55 ml @ 110 mls/hr Q24H IVPB 05/08/18 17:00 05/15/18 16:59 05/11/18 16:57 Citalopram Hydrobromide (celeXA) 40 mg DAILY ORAL 05/09/18 09:00 06/08/18 08:59 05/12/18 08:35 Dextrose (Dextrose 50%) 25 ml Q30M PRN IV Hypoglycemia 05/08/18 01:30 06/07/18 01:29 Dextrose (Dextrose 50%) 50 ml Q30M PRN IV Hypoglycemia 05/08/18 01:30 06/07/18 01:29 Diphenhydramine HCl (Benadryl) 25 mg Q6H PRN ORAL Itching 05/08/18 15:45 06/07/18 15:44 05/11/18 11:12 Docusate Sodium (Colace) 100 mg TWICE A DAY ORAL 05/11/18 18:00 06/10/18 17:59 05/12/18 08:35 Heparin Sodium (Porcine) (Heparin 5000 units/ml) 5,000 units EVERY 8 HOURS SUBQ 05/08/18 06:00 06/07/18 05:59 05/12/18 14:10 Hydromorphone HCl (Dilaudid) 1 mg Q4H PRN IVP Severe Pain (Pain Scale 7-10) 05/08/18 01:30 05/15/18 01:29 05/12/18 12:12 Insulin Aspart (NovoLOG) BEFORE MEALS AND HS SUBQ 05/08/18 06:30 06/07/18 06:29 05/12/18 11:35 Lorazepam (Ativan) 1 mg BID ORAL 05/09/18 09:00 05/16/18 08:59 05/12/18 08:35 Metformin HCl (Glucophage) 1,000 mg BID ORAL 05/09/18 09:00 06/08/18 08:59 05/12/18 08:35 Naloxegol (Movantik) 25 mg DAILY ORAL 05/11/18 17:15 06/10/18 17:14 05/12/18 08:35 Ondansetron HCl (Zofran) 4 mg Q4H PRN IVP Nausea & Vomiting 05/08/18 01:30 06/07/18 01:29 Patient Own Medication (Patient's Own Med) 1 ea QPM ORAL 05/08/18 20:32 06/07/18 20:31 05/11/18 16:58 Polyethylene Glycol/ Electrolytes (Nulytely) 4,000 ml ONCE ORAL 05/12/18 16:00 05/12/18 23:59 Sodium Chloride 1,000 ml @ 75 mls/hr [id number] IV 05/08/18 02:00 06/07/18 01:59 05/12/18 12:40 Sodium Phosphate (Fleet's Sodium Phosl Enema) 133 ml ONCE RECTAL 05/12/18 23:00 05/12/18 23:59 Trazodone HCl (Desyrel) 300 mg BEDTIME ORAL 05/08/18 21:00 06/07/18 20:59 05/11/18 21:16 Zolpidem Tartrate (Ambien) 5 mg HSPRN PRN ORAL Insomnia 05/08/18 07:15 05/15/18 07:14 Allergies: Coded Allergies: No Known Allergies (Unverified , 05/07/18) ROS Limited/Unobtainable: No Constitutional: Reports: no symptoms HEENT: Reports: no symptoms Cardiovascular: Reports: no symptoms Respiratory: Reports: no symptoms Gastrointestinal/Abdominal: Reports: abdominal pain Genitourinary: Reports: no symptoms Neurologic/Psychiatric: Reports: no symptoms Subjective 52 YO F admitted with flank pain and lower abdominal pain. Now pyelonephritis and persistant LLQ pain. Cover for Int Med-Dr Augustine. Await EGD and colonoscopy on 05/13/18 Objective Last Vital Signs Date Time Temp Pulse Resp B/P (MAP) Pulse Ox O2 Delivery O2 Flow Rate FiO2 05/12/18 12:42 97.8 05/12/18 12:00 70 18 119/65 (83) 96 05/12/18 09:00 Room Air Laboratory Tests Test 05/12/18 07:01 White Blood Count 8.1 K/UL (4.8-10.8) Red Blood Count 4.04 M/UL (4.20-5.40) L Hemoglobin 11.5 G/DL (12.0-16.0) L Hematocrit 35.4 % (37.0-47.0) L Mean Corpuscular Volume 87 FL (80-99) Mean Corpuscular Hemoglobin 28.4 PG (27.0-31.0) Mean Corpuscular Hemoglobin Concent 32.5 G/DL (32.0-36.0) Red Cell Distribution Width 13.2 % (11.6-14.8) Platelet Count 289 K/UL (150-450) Mean Platelet Volume 7.1 FL (6.5-10.1) Neutrophils (%) (Auto) 68.2 % (45.0-75.0) Lymphocytes (%) (Auto) 26.1 % (20.0-45.0) Monocytes (%) (Auto) 3.7 % (1.0-10.0) Eosinophils (%) (Auto) 1.3 % (0.0-3.0) Basophils (%) (Auto) 0.8 % (0.0-2.0) Sodium Level 144 MMOL/L (136-145) Potassium Level 3.7 MMOL/L (3.5-5.1) Chloride Level 108 MMOL/L (98-107) H Carbon Dioxide Level 26 MMOL/L (21-32) Anion Gap 10 mmol/L (5-15) Blood Urea Nitrogen 4 mg/dL (7-18) L Creatinine 0.7 MG/DL (0.55-1.30) Estimat Glomerular Filtration Rate > 60 mL/min (>60) Glucose Level 127 MG/DL (74-106) H Calcium Level 8.6 MG/DL (8.5-10.1) Intake and Output 05/11/18 05/12/18 19:00 07:00 Intake Total 1191 ml 943 ml Balance 1191 ml 943 ml Intake Oral 236 ml 118 ml IV Total 955 ml 825 ml # Voids 5 Objective PHYSICAL EXAMINATION: GENERAL: The patient is awake, responsive, and not in acute distress. HEENT: Head and neck examination, pupils are reactive to light. Extraocular movements are intact. Neck was supple. No JVD. LUNGS: Good air entry. No wheezing or rales. HEART: S1 and S2. Distant heart sounds. No murmurs or gallops. ABDOMEN: Soft, morbidly obese, tender in the left flank area, left lower quadrant. No rebound tenderness. No fluid shift. EXTREMITIES: No cyanosis, clubbing, or edema. NEUROLOGIC: Cranial nerves II through XII grossly intact. Motor is 5/5 in all extremities. Gait is intact. Assessment/Plan Assessment/Plan ASSESSMENT: 1. Left flank pain as well as left lower quadrant abdominal pain, UTI and pyelonephritis. 2. Diabetes type 2. 3. Morbid obesity. PLAN: Admit the patient to medical floor. Gastroenterology consult for continued LLQ pain ?diverticulitis? CT=bladder stone Endoscopy and colonoscopy 05/13/18 Urine culture=mixed gram pos cocci Continue Rocephin, and Accu-Chek with sliding scale. Discussed the case with Dr. Livingston from Urology. Code status is Full Code. DVT prophylaxis. Heparin subcutaneous. We will follow up with a renal ultrasound to rule out any possibility of the obstruction. Discussed with urology and gastroenterology Robbie Woodard MD May 12, 2018 15:15
[2018-05-12 16:00] VITALS: BP 144/72
[2018-05-12] MEDS ORDERED: Nulytely 4L ORAL SCH (16:00)
[2018-05-12] MEDS ORDERED: Bisacodyl EC 5mg tab ORAL SCH (16:00)
[2018-05-12] MEDS: cefTRIAXone 1 GM in D5W 55 ML IVPB SCH (16:33)
[2018-05-12] MEDS: LATUDA 60 MG ORAL SCH (16:33)
--- NOTE | 2018-05-12 19:00 | NUR ---
NURSE NOTES: RESTING IN BED. IN NO ACUTE DISTRESS.
--- NOTE | 2018-05-12 19:39 | NUR ---
HAND-OFF: Report given to Annette COATS RN.
[2018-05-12 20:00] VITALS: BP 131/66
[2018-05-12] MEDS: TraZODone 100mg tab ORAL SCH (21:00)
[2018-05-12] MEDS ORDERED: Fleet's Enema 133ml RECTAL SCH (23:00)
--- NOTE | 2018-05-12 23:28 | NUR ---
NURSE NOTES: Patient in bed awake and oriented. VSS. No SOB noted. Patient able to ambulate to the bathroom. Bedside commode also present inside patients room. Clear bowel movement noted. held enema at this time. IV site is clean and intact. Needs attended. Due meds given. Kept comfortable. Call light within reach. In stable condition.
[2018-05-13] VITALS (10 sets, daily range): BP systolic 121–144; BP diastolic 63–78
[2018-05-13] MEDS: HYDROmorphone 1mg/ml Carpuject IVP PRN ×5 (01:51→23:17)
[2018-05-13] MEDS: Heparin 5000 units/ml inj SUBQ SCH ×3 (05:03→23:20)
[2018-05-13] MEDS: NovoLOG Insulin Flexpen SUBQ SCH ×4 (05:45→21:00)
--- NOTE | 2018-05-13 06:07 | NUR ---
NURSE NOTES: Patient NPO midnight. Bowel movement is clear. 9/10 flank pain noted. PRN pain medication given. Needs attended.
--- NOTE | 2018-05-13 07:23 | NUR ---
NURSE NOTES: AWAKE/ALERT. NPO MAINTAINED FOR EGD AND COLONOSCOPY. IN NO ACUTE DISTRESS.
[2018-05-13] MEDS ORDERED: LR 1000ml 1,000 ML IVLG SCH (08:03)
--- NOTE | 2018-05-13 08:03 | Anethesia Preoperative Eval ---
Anesthesia Pre-op PMH/ROS General Date of Evaluation: May 13, 2018 Anesthesiologist: Anthony ASA Score: ASA 2 Mallampati Score Class I : Soft palate, uvula, fauces, pillars visible Class II: Soft palate, uvula, fauces visible Class III: Soft palate, base of uvula visible Class IV: Only hard plate visible Mallampati Classification: Class II Surgeon: Jaylene Diagnosis: Abdominal pain Surgical Procedure: EGD and colonoscopy Anesthesia History: none Family History: no anesthesia problems Allergies: Coded Allergies: No Known Allergies (Unverified , 05/07/18) Medications: see eMAR Patient NPO?: Yes NPO Date: May 12, 2018 NPO Time: 22:00 Past Medical History Cardiovascular: Denies: HTN, CAD, SD, valve dz, arrhythmia, other Pulmonary: Denies: asthma, COPD, ARYAN, other Gastrointestinal/Genitourinary: Denies: GERD, CRI, ESRD, other Neurologic/Psychiatric: Reports: depression/anxiety; Denies: dementia, CVA, TIA, other Endocrine: Reports: DM; Denies: hypothyroidism, steroids, other HEENT: Denies: cataract (L), cataract (R), glaucoma, TON[place]ANDA (L), [place]DA (R), other Hematology/Immune: Denies: anemia, DVT, bleeding disorder, other Musculoskeletal/Integumentary: Denies: OA, RA, DJD, DDD, edema, other Other: obesity PSxH Narrative: oophorectomy Anesthesia Pre-op Phys. Exam Physician Exam Last Vital Signs Date Time Temp Pulse Resp B/P (MAP) Pulse Ox O2 Delivery O2 Flow Rate FiO2 05/13/18 04:00 97.5 76 17 121/69 (86) 94 05/12/18 21:00 Room Air Constitutional: NAD Cardiovascular: RRR Respiratory: CTA Airway Exam Mallampati Score: Class II MO: full ROM: full Anesthesia Pre-op A/P Labs see chart Studies Pre-op Studies: EKG - sr Risk Assessment & Plan Assessment: ASA II Plan: MAC Status Change Before Surgery: No Pre-Antibiotics Drug: N/A Cyn Watson MD May 13, 2018 08:02
[2018-05-13] MEDS ORDERED: DiphenhydrAMINE 50mg/ml Inj IVP PRN (08:15)
[2018-05-13] MEDS: Docusate 100mg cap ORAL SCH ×2 (08:38→17:30)
[2018-05-13] MEDS: LORazepam 1mg tab ORAL SCH ×2 (08:38→17:30)
[2018-05-13] MEDS: Citalopram Hydrobromide 10mg Tab ORAL SCH (08:38)
[2018-05-13] MEDS: metFORMIN 500mg tab ORAL SCH ×2 (08:39→17:30)
[2018-05-13] MEDS: Naloxegol Oxalate 25mg tab ORAL SCH (08:39)
--- NOTE | 2018-05-13 09:22 | Urology Progress Note ---
Assessment/Plan Assessment/Plan 1. Abdominal pain, etiology uncertain, possibly secondary to a recently passed ureteral calculus. 2. Hematuria history. 3. Pyuria. 4. Proteinuria. 5. Urinary frequency. 6. Small bladder calculus. still with pain no obvious urologic source monitor clinically on abx further imaging? GI w/u Subjective Allergies: Coded Allergies: No Known Allergies (Unverified , 05/07/18) Subjective all noted, still with pain, for EGD today Objective Last 24 Hour Vital Signs Date Time Temp Pulse Resp B/P (MAP) Pulse Ox O2 Delivery O2 Flow Rate FiO2 05/13/18 09:12 Room Air 05/13/18 08:42 97.5 05/13/18 08:00 98.0 72 18 139/72 (94) 98 05/13/18 04:00 97.5 76 17 121/69 (86) 94 05/13/18 00:00 97.6 84 18 144/78 (100) 94 05/12/18 21:00 Room Air 05/12/18 20:00 97.7 76 17 131/66 (87) 97 05/12/18 16:00 99.1 71 16 144/72 (96) 98 05/12/18 12:00 98.4 70 18 119/65 (83) 96 Intake and Output 05/12/18 05/13/18 19:00 07:00 Intake Total 2231 ml 975 ml Balance 2231 ml 975 ml Intake Oral 1276 ml IV Total 955 ml 975 ml # Voids 4 # Bowel Movements 2 5 Microbiology Date/Time Source Procedure Growth Status 05/08/18 02:09 Blood Blood Culture - Final NO GROWTH AFTER 5 DAYS Complete 05/08/18 12:30 Urine,Clean Catch Urine Culture - Final Mixed Gram Positive Organism Complete Current Medications Medications (Trade) Dose Ordered Sig/Edil Route PRN Reason Start Time Stop Time Status Last Admin Dose Admin Acetaminophen (Tylenol) 650 mg Q4H PRN ORAL Mild Pain (Pain Scale 1-3) 05/13/18 08:15 05/13/18 18:00 Acetaminophen (Tylenol) 650 mg Q6H PRN ORAL Mild Pain/Temp > 100.5 05/08/18 01:30 06/07/18 01:29 Acetaminophen/ Hydrocodone Bitart ([place] 5/325) 1 tab Q6H PRN ORAL Moderate Pain (Pain Scale 4-6) 05/08/18 07:00 05/15/18 06:59 05/12/18 06:14 Ceftriaxone Sodium 1 gm/ Dextrose 55 ml @ 110 mls/hr Q24H IVPB 05/08/18 17:00 05/15/18 16:59 05/12/18 16:33 Citalopram Hydrobromide (celeXA) 40 mg DAILY ORAL 05/09/18 09:00 06/08/18 08:59 05/12/18 08:35 Dextrose (Dextrose 50%) 25 ml Q30M PRN IV Hypoglycemia 05/08/18 01:30 06/07/18 01:29 Dextrose (Dextrose 50%) 50 ml Q30M PRN IV Hypoglycemia 05/08/18 01:30 06/07/18 01:29 Diphenhydramine HCl (Benadryl) 25 mg Q15M PRN IVP Itching 05/13/18 08:15 05/13/18 18:00 Diphenhydramine HCl (Benadryl) 25 mg Q6H PRN ORAL Itching 05/08/18 15:45 06/07/18 15:44 05/11/18 11:12 Docusate Sodium (Colace) 100 mg TWICE A DAY ORAL 05/11/18 18:00 06/10/18 17:59 05/12/18 18:25 Heparin Sodium (Porcine) (Heparin 5000 units/ml) 5,000 units EVERY 8 HOURS SUBQ 05/08/18 06:00 06/07/18 05:59 05/12/18 14:10 Hydralazine HCl (Apresoline) 5 mg Q30M PRN IV SBP>160 OR___/DBP>90 OR___ 05/13/18 08:15 05/13/18 18:00 Hydromorphone HCl (Dilaudid) 1 mg Q4H PRN IVP Severe Pain (Pain Scale 7-10) 05/08/18 01:30 05/15/18 01:29 05/13/18 08:12 Insulin Aspart (NovoLOG) BEFORE MEALS AND HS SUBQ 05/08/18 06:30 06/07/18 06:29 05/12/18 16:29 Lactated Ringer's 1,000 ml @ 10 mls/hr Q24H IVLG 05/13/18 08:03 05/13/18 10:02 Lorazepam (Ativan) 1 mg BID ORAL 05/09/18 09:00 05/16/18 08:59 05/12/18 18:25 Metformin HCl (Glucophage) 1,000 mg BID ORAL 05/09/18 09:00 06/08/18 08:59 05/12/18 18:25 Naloxegol (Movantik) 25 mg DAILY ORAL 05/11/18 17:15 06/10/18 17:14 05/12/18 08:35 Ondansetron HCl (Zofran) 4 mg Q4H PRN IVP Nausea & Vomiting 05/08/18 01:30 06/07/18 01:29 05/12/18 17:31 Patient Own Medication (Patient's Own Med) 1 ea QPM ORAL 05/08/18 20:32 06/07/18 20:31 05/12/18 16:33 Sodium Chloride 1,000 ml @ 75 mls/hr [id number] IV 05/08/18 02:00 06/07/18 01:59 05/13/18 02:26 Trazodone HCl (Desyrel) 300 mg BEDTIME ORAL 05/08/18 21:00 06/07/18 20:59 05/12/18 21:00 Zolpidem Tartrate (Ambien) 5 mg HSPRN PRN ORAL Insomnia 05/08/18 07:15 05/15/18 07:14 Laboratory Tests 05/12/18 15:40: Stool Occult Blood Negative Height (Feet): 5 Height (Inches): 0.00 Weight (Pounds): 152 Objective exam Jasson Livingston MD May 13, 2018 09:22
[2018-05-13 09:54] LABS: EOSINOPHILS % (AUTO) 1.1 % (0.0-3.0); HEMATOCRIT 35.2 % (37.0-47.0); HEMOGLOBIN 11.7 G/DL (12.0-16.0); LYMPHOCYTES % (AUTO) 15.8 % (20.0-45.0); MEAN CORPUSCULAR VOLUME 85 FL (80-99); MONOCYTES % (AUTO) 3.1 % (1.0-10.0); NEUTROPHILS % (AUTO) 78.9 % (45.0-75.0); PLATELET COUNT 309 K/UL (150-450); RED BLOOD COUNT 4.12 M/UL (4.20-5.40); RED CELL DISTRIBUTION WIDTH 13.2 % (11.6-14.8); WHITE BLOOD COUNT 8.9 K/UL (4.8-10.8)
[2018-05-13 09:58] LABS: INR 0.9 (0.9-1.1)
[2018-05-13 10:01] LABS: % IRON SATURATION 14 % (15-50); IRON 39 ug/dL (50-175); TOTAL IRON BINDING CAPACITY 270 ug/dL (250-450)
[2018-05-13 10:18] LABS: ALKALINE PHOSPHATASE 91 U/L (46-116); ANION GAP 9 mmol/L (5-15); BILIRUBIN,TOTAL 0.3 MG/DL (0.2-1.0); CARBON DIOXIDE 29 MMOL/L (21-32); CHLORIDE 104 MMOL/L (98-107); POTASSIUM 3.5 MMOL/L (3.5-5.1); SODIUM 142 MMOL/L (136-145)
[2018-05-13 11:05] LABS: ALANINE AMINOTRANSFERASE 22 U/L (12-78); ALBUMIN 3.2 G/DL (3.4-5.0); ALBUMIN/GLOBULIN RATIO 0.7 (1.0-2.7); ASPARTATE AMINO TRANSFERASE 30 U/L (15-37); BLOOD UREA NITROGEN 3 mg/dL (7-18); CALCIUM 8.7 MG/DL (8.5-10.1); CREATININE 0.7 MG/DL (0.55-1.30)
--- NOTE | 2018-05-13 11:39 | NUR ---
NURSE NOTES: NPO MAINTAINED. TO GI LAB VIA [facility].
[2018-05-13] MEDS ORDERED: NS 500ML IVPB ONE (11:45)
--- NOTE | 2018-05-13 11:57 | Pre-Procedure Note/Attestation ---
Pre-Procedure Note/Attestation Complete Prior to Procedure Planned Procedure: not applicable Procedure Narrative: esophagogastroduodenoscopy and colonoscopy Indications for Procedure Pre-Operative Diagnosis: anemia Attestation I attest that I discussed the nature of the procedure; its benefits; risks and complications; and alternatives (and the risks and benefits of such alternatives ), prior to the procedure, with the patient (or the patient's legal policy services representative). I attest that, if there was a reasonable possibility of needing a blood transfusion, the patient (or the patient's legal policy services representative) was given the [facility] standardized written summary, pursuant to the Ronald Tamara Blood Safety Act ([place] Health and Safety Code # 1645, as amended). I attest that I re-evaluated the patient just prior to the surgery and that there has been no change in the patient's H&P, except as documented below: Luis E Mariee MD May 13, 2018 11:57
[2018-05-13] MEDS ORDERED: Propofol 200mg/20ml IV ONE (12:00)
[2018-05-13] MEDS ORDERED: Lidocaine 1% MPF 10mg/ml 5ml ONE (12:00)
--- NOTE | 2018-05-13 12:21 | Endoscopy Procedure Note ---
Endoscopy Procedure Note General Indication for Procedure: anemia Procedures Performed: EGD, colonoscopy Operative Findings/Diagnosis: gastritis Specimen: yes Pt Tolerated Procedure Well: Yes Estimated Blood Loss: none Anesthesia Anesthesiologist: rikki Anesthesia: MAC Inserted Devices Implant(s) used?: No Quality Quality of Bowel Preparation: Good Did scope reach the cecum?: Yes Was there any complications?: No GI Core Measures 50 yrs or older w/o bx or poly: Not Applicable 10yrs. F/U not recommended: Not Applicable Luis E Mariee MD May 13, 2018 12:21
--- NOTE | 2018-05-13 12:23 | Immediate Post-Op Evaluation ---
Immediate Post-Op Evalulation Immediate Post-Op Evalulation Procedure: EGD and colonoscopy Date of Evaluation: May 13, 2018 Time of Evaluation: 12:24 IV Fluids: 300 Blood Products: 0 Estimated Blood Loss: 0 Urinary Output: 0 Blood Pressure Systolic: 142 Blood Pressure Diastolic: 63 Pulse Rate: 68 Respiratory Rate: 16 O2 Sat by Pulse Oximetry: 96 Temperature (Fahrenheit): 97.2 Pain Score (1-10): 0 Nausea: No Vomiting: No Complications 0 Patient Status: awake, reacts, patent, none Hydration Status: adequate Drug: N/A Cyn Watson MD May 13, 2018 12:23
[2018-05-13 12:24] LABS: FERRITIN 109 NG/ML (8-388)
--- NOTE | 2018-05-13 12:24 | 48 Hour Post Anesthesia Eval ---
Post Anesthesia Evaluation Procedure: EGD and colonoscopy Date of Evaluation: May 13, 2018 Airway: patent Nausea: No Vomiting: No Pain Intensity: 0 Hydration Status: adequate Cardiopulmonary Status: at baseline Mental Status/LOC: patient returned to baseline Post-Anesthesia Complications: 0 Follow-up care needed: N/A - further care as per primary team Cyn Watson MD May 13, 2018 12:23
--- NOTE | 2018-05-13 12:45 | NUR ---
NURSE NOTES REC'D FROM PACU SP EGD AND COLONOSCOPY. AWAKE/ALERT.V/S TAKEN/ PAIN SCALE 10/10. IN NO DISTRESS.
--- NOTE | 2018-05-13 15:36 | NUR ---
CASE MANAGEMENT:REVIEW 05/13/18 SI:PYELONEPHRITIS. PERSISTENT LLQ PAIN 97.5 72 18 134/65 96% ON RA H/H-11.7/35.2 IS: IV ROCEPHIN Q24 IVF@75/HR IV DILAUDID Q4HRS PRN : MED/SURG STATUS 3 EAST PLAN: EGD/COLONOSCOPY DONE TODAY BEGIN REGULAR DIET CONTINUE IV ABX
--- NOTE | 2018-05-13 15:58 | NUR ---
NURSE NOTES MEDICINE NOT DUE TILL 5PM. DILAUDID 1MG WASTED. WITNESSED BY Marlen TOLLIVER RN. JORDAN PHARMACIST INFORMED.
[2018-05-13] MEDS: LATUDA 60 MG ORAL SCH (16:32)
[2018-05-13] MEDS: cefTRIAXone 1 GM in D5W 55 ML IVPB SCH (16:37)
--- NOTE | 2018-05-13 17:00 | Procedure Note ---
DATE OF PROCEDURE: 05/13/2018 SURGEON: Luis E Mariee M.D. PROCEDURE: Upper endoscopy with biopsy and colonoscopy. ANESTHESIA: Per Dr. Cruz. INSTRUMENT: Olympus adult flexible upper endoscope and colonoscope. REASON FOR PROCEDURE: The procedure, risks, benefits, and possible consequences, including hemorrhage, aspiration, perforation and infection, and alternative treatments, were explained to the patient/legal guardian by Dr. Luis E Mariee and the patient/legal guardian understood and accepted these risks. INDICATIONS: Anemia, iron-deficiency and abdominal pain. PROCEDURE IN DETAIL: After informed consent was obtained and the patient was adequately sedated, Olympus upper endoscope was advanced from the mouth into the second portion of the duodenum and retroflexion performed in the stomach. The patient had diffuse gastritis. Random biopsy from antrum was obtained to rule out H. pylori infection. At this time, the upper endoscope was retrieved. The patient was turned over for colonoscopy. First, rectal exam was performed, which was normal. Then, the scope was advanced from the rectum into the cecum. Quality of prep was good except for the cecum, which was covered by some of solid stool, so examination of cecum was limited. The rest of the examination was within normal limits. No obvious mass, polyp, or any other pathology was seen. Retroflexion of scope showed evidence of internal hemorrhoids. SUMMARY OF FINDINGS: 1. Gastritis, status post biopsy. 2. Internal hemorrhoids. RECOMMENDATIONS: 1. Follow up biopsy results and treat accordingly. 2. Advance diet. 3. Discharge planning per primary team. Luis E Mariee M.D. DR: DANIEL JOB#: [id number] CC:
--- NOTE | 2018-05-13 19:03 | NUR ---
NURSE NOTES: ASLEEP. IN NO DISTRESS.
--- NOTE | 2018-05-13 19:19 | NUR ---
HAND-OFF: Report given to Laney HUA RN.
--- NOTE | 2018-05-13 19:36 | Internal Med Progress Note ---
Subjective Date of Service: May 13, 2018 Physician Name WoodardRobbie Attending Physician Garcia Augustine MD Current Medications Medications (Trade) Dose Ordered Sig/Edil Route PRN Reason Start Time Stop Time Status Last Admin Dose Admin Acetaminophen (Tylenol) 650 mg Q6H PRN ORAL Mild Pain/Temp > 100.5 05/08/18 01:30 06/07/18 01:29 Acetaminophen/ Hydrocodone Bitart ([place] 5/325) 1 tab Q6H PRN ORAL Moderate Pain (Pain Scale 4-6) 05/08/18 07:00 05/15/18 06:59 05/12/18 06:14 Ceftriaxone Sodium 1 gm/ Dextrose 55 ml @ 110 mls/hr Q24H IVPB 05/08/18 17:00 05/15/18 16:59 05/13/18 16:37 Citalopram Hydrobromide (celeXA) 40 mg DAILY ORAL 05/09/18 09:00 06/08/18 08:59 05/12/18 08:35 Dextrose (Dextrose 50%) 25 ml Q30M PRN IV Hypoglycemia 05/08/18 01:30 06/07/18 01:29 Dextrose (Dextrose 50%) 50 ml Q30M PRN IV Hypoglycemia 05/08/18 01:30 06/07/18 01:29 Diphenhydramine HCl (Benadryl) 25 mg Q6H PRN ORAL Itching 05/08/18 15:45 06/07/18 15:44 05/11/18 11:12 Docusate Sodium (Colace) 100 mg TWICE A DAY ORAL 05/11/18 18:00 06/10/18 17:59 05/13/18 17:30 Heparin Sodium (Porcine) (Heparin 5000 units/ml) 5,000 units EVERY 8 HOURS SUBQ 05/08/18 06:00 06/07/18 05:59 05/13/18 14:02 Hydromorphone HCl (Dilaudid) 1 mg Q4H PRN IVP Severe Pain (Pain Scale 7-10) 05/08/18 01:30 05/15/18 01:29 05/13/18 16:58 Insulin Aspart (NovoLOG) BEFORE MEALS AND HS SUBQ 05/08/18 06:30 06/07/18 06:29 05/13/18 16:35 Lorazepam (Ativan) 1 mg BID ORAL 05/09/18 09:00 05/16/18 08:59 05/13/18 17:30 Metformin HCl (Glucophage) 1,000 mg BID ORAL 05/09/18 09:00 06/08/18 08:59 05/13/18 17:30 Naloxegol (Movantik) 25 mg DAILY ORAL 05/11/18 17:15 06/10/18 17:14 05/12/18 08:35 Ondansetron HCl (Zofran) 4 mg Q4H PRN IVP Nausea & Vomiting 05/08/18 01:30 06/07/18 01:29 05/12/18 17:31 Patient Own Medication (Patient's Own Med) 1 ea QPM ORAL 05/08/18 20:32 06/07/18 20:31 05/13/18 16:32 Sodium Chloride 1,000 ml @ 75 mls/hr [id number] IV 05/08/18 02:00 06/07/18 01:59 05/13/18 02:26 Trazodone HCl (Desyrel) 300 mg BEDTIME ORAL 05/08/18 21:00 06/07/18 20:59 05/12/18 21:00 Zolpidem Tartrate (Ambien) 5 mg HSPRN PRN ORAL Insomnia 05/08/18 07:15 05/15/18 07:14 Allergies: Coded Allergies: No Known Allergies (Unverified , 05/07/18) ROS Limited/Unobtainable: No Constitutional: Reports: no symptoms HEENT: Reports: no symptoms Cardiovascular: Reports: no symptoms Respiratory: Reports: no symptoms Gastrointestinal/Abdominal: Reports: abdominal pain Genitourinary: Reports: no symptoms Neurologic/Psychiatric: Reports: no symptoms Subjective 52 YO F admitted with flank pain and lower abdominal pain. Now pyelonephritis and persistant LLQ pain. Cover for Int Med-Dr Augustine. S/P EGD and colonoscopy on 05/13/18 Objective Last Vital Signs Date Time Temp Pulse Resp B/P (MAP) Pulse Ox O2 Delivery O2 Flow Rate FiO2 05/13/18 17:28 98.1 05/13/18 16:00 72 18 140/70 (93) 96 05/13/18 12:50 Room Air Laboratory Tests Test 05/13/18 09:30 White Blood Count 8.9 K/UL (4.8-10.8) Red Blood Count 4.12 M/UL (4.20-5.40) L Hemoglobin 11.7 G/DL (12.0-16.0) L Hematocrit 35.2 % (37.0-47.0) L Mean Corpuscular Volume 85 FL (80-99) Mean Corpuscular Hemoglobin 28.3 PG (27.0-31.0) Mean Corpuscular Hemoglobin Concent 33.2 G/DL (32.0-36.0) Red Cell Distribution Width 13.2 % (11.6-14.8) Platelet Count 309 K/UL (150-450) Mean Platelet Volume 7.5 FL (6.5-10.1) Neutrophils (%) (Auto) 78.9 % (45.0-75.0) H Lymphocytes (%) (Auto) 15.8 % (20.0-45.0) L Monocytes (%) (Auto) 3.1 % (1.0-10.0) Eosinophils (%) (Auto) 1.1 % (0.0-3.0) Basophils (%) (Auto) 1.0 % (0.0-2.0) Reticulocyte Count 1.0 % (0.0-2.0) Prothrombin Time 9.8 SEC (9.30-11.50) Prothromb Time International Ratio 0.9 (0.9-1.1) Activated Partial Thromboplast Time 28 SEC (23-33) Sodium Level 142 MMOL/L (136-145) Potassium Level 3.5 MMOL/L (3.5-5.1) Chloride Level 104 MMOL/L (98-107) Carbon Dioxide Level 29 MMOL/L (21-32) Anion Gap 9 mmol/L (5-15) Blood Urea Nitrogen 3 mg/dL (7-18) L Creatinine 0.7 MG/DL (0.55-1.30) Estimat Glomerular Filtration Rate > 60 mL/min (>60) Glucose Level 103 MG/DL (74-106) Calcium Level 8.7 MG/DL (8.5-10.1) Iron Level 39 ug/dL (50-175) L Total Iron Binding Capacity 270 ug/dL (250-450) Percent Iron Saturation 14 % (15-50) L Unsaturated Iron Binding 231 ug/dL (112-346) Ferritin 109 NG/ML (8-388) Total Bilirubin 0.3 MG/DL (0.2-1.0) Aspartate Amino Transf (AST/SGOT) 30 U/L (15-37) Alanine Aminotransferase (ALT/SGPT) 22 U/L (12-78) Alkaline Phosphatase 91 U/L (46-116) Total Protein 7.5 G/DL (6.4-8.2) Albumin 3.2 G/DL (3.4-5.0) L Globulin 4.3 g/dL Albumin/Globulin Ratio 0.7 (1.0-2.7) L Carcinoembryonic Antigen Pending Vitamin B12 Level 566 PG/ML (193-986) Folate 24.8 NG/ML (8.6-58.9) Thyroid Stimulating Hormone (TSH) 4.009 uiU/mL (0.358-3.740) Free Thyroxine 1.06 NG/DL (0.76-1.46) Intake and Output 05/12/18 05/13/18 19:00 07:00 Intake Total 2231 ml 975 ml Balance 2231 ml 975 ml Intake Oral 1276 ml IV Total 955 ml 975 ml # Voids 4 # Bowel Movements 2 5 Objective PHYSICAL EXAMINATION: GENERAL: The patient is awake, responsive, and not in acute distress. HEENT: Head and neck examination, pupils are reactive to light. Extraocular movements are intact. Neck was supple. No JVD. LUNGS: Good air entry. No wheezing or rales. HEART: S1 and S2. Distant heart sounds. No murmurs or gallops. ABDOMEN: Soft, morbidly obese, tender in the left flank area, left lower quadrant. No rebound tenderness. No fluid shift. EXTREMITIES: No cyanosis, clubbing, or edema. NEUROLOGIC: Cranial nerves II through XII grossly intact. Motor is 5/5 in all extremities. Gait is intact. Assessment/Plan Assessment/Plan ASSESSMENT: 1. Left flank pain as well as left lower quadrant abdominal pain, UTI and pyelonephritis. 2. Diabetes type 2. 3. Morbid obesity. 4. gastritis PLAN: Admit the patient to medical floor. Gastroenterology consult for continued LLQ pain ?diverticulitis? CT=bladder stone S/P Endoscopy and colonoscopy 05/13/18=gastritis Urine culture=mixed gram pos cocci Continue Rocephin, and Accu-Chek with sliding scale. Discussed the case with Dr. Livingston from Urology. Code status is Full Code. DVT prophylaxis. Heparin subcutaneous. We will follow up with a renal ultrasound to rule out any possibility of the obstruction. Discussed with urology and gastroenterology Robbie Woodard MD May 13, 2018 19:36
--- NOTE | 2018-05-13 19:41 | NUR ---
NURSE NOTES: Received report from ARMINDA Agarwal
[2018-05-13] MEDS: TraZODone 100mg tab ORAL SCH (23:16)
[2018-05-14] VITALS: BP 104/54
--- NOTE | 2018-05-14 01:39 | NUR ---
NURSE NOTES: Patient in bed, aaox4. VSS, pain 9/10 abdominal area. Dilaudid IVP given. IV fluids running. Due meds given, needs attended to. bed low, call light within reach.
[2018-05-14] MEDS: HYDROmorphone 1mg/ml Carpuject IVP PRN ×5 (03:52→21:48)
[2018-05-14 04:00] VITALS: BP 99/53
[2018-05-14] MEDS: NovoLOG Insulin Flexpen SUBQ SCH ×4 (06:30→20:56)
[2018-05-14] MEDS: Heparin 5000 units/ml inj SUBQ SCH ×3 (06:35→21:53)
[2018-05-14 08:00] VITALS: BP 121/56
[2018-05-14 08:07] LABS: BASOPHILS % (AUTO) 1.3 % (0.0-2.0); EOSINOPHILS % (AUTO) 1.4 % (0.0-3.0); HEMATOCRIT 38.3 % (37.0-47.0); HEMOGLOBIN 12.5 G/DL (12.0-16.0); LYMPHOCYTES % (AUTO) 39.4 % (20.0-45.0); MEAN CORPUSCULAR VOLUME 88 FL (80-99); MONOCYTES % (AUTO) 4.7 % (1.0-10.0); NEUTROPHILS % (AUTO) 53.2 % (45.0-75.0); PLATELET COUNT 202 K/UL (150-450); RED BLOOD COUNT 4.35 M/UL (4.20-5.40); RED CELL DISTRIBUTION WIDTH 13.3 % (11.6-14.8); WHITE BLOOD COUNT 7.5 K/UL (4.8-10.8)
--- NOTE | 2018-05-14 08:22 | NUR ---
HAND-OFF: Report given to ARMINDA Krueger. Patient stable.
--- NOTE | 2018-05-14 08:23 | NUR ---
NURSE NOTES: Received patient awake alert and oriented, lying comfortably in bed. IV site at right forearm, 22 gauge, infusing NS @ 75ml/hour. Bed at lowest level. Call light in reach. In no apparent distress at this time. Will continue to monitor.
[2018-05-14] MEDS: Citalopram Hydrobromide 10mg Tab ORAL SCH (08:43)
[2018-05-14] MEDS: Docusate 100mg cap ORAL SCH ×2 (08:43→17:51)
[2018-05-14] MEDS: Naloxegol Oxalate 25mg tab ORAL SCH (08:43)
[2018-05-14] MEDS: LORazepam 1mg tab ORAL SCH ×2 (08:43→17:51)
[2018-05-14] MEDS: metFORMIN 500mg tab ORAL SCH ×2 (08:44→17:51)
[2018-05-14 08:55] LABS: ANION GAP 11 mmol/L (5-15); BLOOD UREA NITROGEN 3 mg/dL (7-18); CALCIUM 8.9 MG/DL (8.5-10.1); CARBON DIOXIDE 25 MMOL/L (21-32); CHLORIDE 104 MMOL/L (98-107); CREATININE 0.8 MG/DL (0.55-1.30); POTASSIUM 3.6 MMOL/L (3.5-5.1); SODIUM 140 MMOL/L (136-145)
--- NOTE | 2018-05-14 09:11 | Urology Progress Note ---
Assessment/Plan Assessment/Plan 1. Abdominal pain, etiology uncertain, possibly secondary to a recently passed ureteral calculus. 2. Hematuria history. 3. Pyuria. 4. Proteinuria. 5. Urinary frequency. 6. Small bladder calculus. still with pain no obvious urologic source monitor clinically on abx further imaging? GI f/u Subjective Allergies: Coded Allergies: No Known Allergies (Unverified , 05/07/18) Subjective all noted, still some pain, poss a bit better Objective Last 24 Hour Vital Signs Date Time Temp Pulse Resp B/P (MAP) Pulse Ox O2 Delivery O2 Flow Rate FiO2 05/14/18 08:26 98.8 05/14/18 08:00 98.8 75 18 121/56 (77) 94 05/14/18 04:00 98.1 69 18 99/53 (68) 95 05/14/18 00:00 98.7 68 18 104/54 (71) 95 05/13/18 21:00 Room Air 05/13/18 20:00 98.7 72 18 142/63 (89) 96 05/13/18 16:00 98.1 72 18 140/70 (93) 96 05/13/18 12:50 97.5 72 18 134/65 96 Room Air 72 05/13/18 12:45 72 19 123/63 96 Room Air 72 05/13/18 12:30 72 16 136/69 97 Room Air 70 05/13/18 12:25 77 18 144/66 98 Room Air 72 05/13/18 12:23 68 16 96 05/13/18 12:19 97.4 68 16 142/63 96 Room Air 68 05/13/18 09:12 Room Air Intake and Output 05/13/18 05/14/18 19:00 07:00 Intake Total 830.0 ml 195 ml Balance 830.0 ml 195 ml Intake Oral 270 ml 120 ml IV Total 560.0 ml 75 ml # Voids 3 1 Microbiology Date/Time Source Procedure Growth Status 05/08/18 02:09 Blood Blood Culture - Final NO GROWTH AFTER 5 DAYS Complete 05/08/18 12:30 Urine,Clean Catch Urine Culture - Final Mixed Gram Positive Organism Complete Current Medications Medications (Trade) Dose Ordered Sig/Edil Route PRN Reason Start Time Stop Time Status Last Admin Dose Admin Acetaminophen (Tylenol) 650 mg Q6H PRN ORAL Mild Pain/Temp > 100.5 05/08/18 01:30 06/07/18 01:29 Acetaminophen/ Hydrocodone Bitart ([place] 5/325) 1 tab Q6H PRN ORAL Moderate Pain (Pain Scale 4-6) 05/08/18 07:00 05/15/18 06:59 05/12/18 06:14 Ceftriaxone Sodium 1 gm/ Dextrose 55 ml @ 110 mls/hr Q24H IVPB 05/08/18 17:00 05/15/18 16:59 05/13/18 16:37 Citalopram Hydrobromide (celeXA) 40 mg DAILY ORAL 05/09/18 09:00 06/08/18 08:59 05/14/18 08:43 Dextrose (Dextrose 50%) 25 ml Q30M PRN IV Hypoglycemia 05/08/18 01:30 06/07/18 01:29 Dextrose (Dextrose 50%) 50 ml Q30M PRN IV Hypoglycemia 05/08/18 01:30 06/07/18 01:29 Diphenhydramine HCl (Benadryl) 25 mg Q6H PRN ORAL Itching 05/08/18 15:45 06/07/18 15:44 05/11/18 11:12 Docusate Sodium (Colace) 100 mg TWICE A DAY ORAL 05/11/18 18:00 06/10/18 17:59 05/14/18 08:43 Heparin Sodium (Porcine) (Heparin 5000 units/ml) 5,000 units EVERY 8 HOURS SUBQ 05/08/18 06:00 06/07/18 05:59 05/14/18 06:35 Hydromorphone HCl (Dilaudid) 1 mg Q4H PRN IVP Severe Pain (Pain Scale 7-10) 05/08/18 01:30 05/15/18 01:29 05/14/18 07:56 Insulin Aspart (NovoLOG) BEFORE MEALS AND HS SUBQ 05/08/18 06:30 06/07/18 06:29 05/13/18 16:35 Lorazepam (Ativan) 1 mg BID ORAL 05/09/18 09:00 05/16/18 08:59 05/14/18 08:43 Metformin HCl (Glucophage) 1,000 mg BID ORAL 05/09/18 09:00 06/08/18 08:59 05/14/18 08:44 Naloxegol (Movantik) 25 mg DAILY ORAL 05/11/18 17:15 06/10/18 17:14 05/14/18 08:43 Ondansetron HCl (Zofran) 4 mg Q4H PRN IVP Nausea & Vomiting 05/08/18 01:30 06/07/18 01:29 05/12/18 17:31 Patient Own Medication (Patient's Own Med) 1 ea QPM ORAL 05/08/18 20:32 06/07/18 20:31 05/13/18 16:32 Sodium Chloride 1,000 ml @ 75 mls/hr [id number] IV 05/08/18 02:00 06/07/18 01:59 05/13/18 23:17 Trazodone HCl (Desyrel) 300 mg BEDTIME ORAL 05/08/18 21:00 06/07/18 20:59 05/13/18 23:16 Zolpidem Tartrate (Ambien) 5 mg HSPRN PRN ORAL Insomnia 05/08/18 07:15 05/15/18 07:14 Laboratory Tests 05/13/18 09:30: White Blood Count 8.9, Red Blood Count 4.12L, Hemoglobin 11.7L, Hematocrit 35.2L , Mean Corpuscular Volume 85, Mean Corpuscular Hemoglobin 28.3, Mean Corpuscular Hemoglobin Concent 33.2, Red Cell Distribution Width 13.2, Platelet Count 309, Mean Platelet Volume 7.5, Neutrophils (%) (Auto) 78.9H, Lymphocytes ( %) (Auto) 15.8L, Monocytes (%) (Auto) 3.1, Eosinophils (%) (Auto) 1.1, Basophils (%) (Auto) 1.0, Reticulocyte Count 1.0, Prothrombin Time 9.8, Prothromb Time International Ratio 0.9, Activated Partial Thromboplast Time 28, Sodium Level 142, Potassium Level 3.5, Chloride Level 104, Carbon Dioxide Level 29, Anion Gap 9, Blood Urea Nitrogen 3L, Creatinine 0.7, Estimat Glomerular Filtration Rate > 60, Glucose Level 103, Calcium Level 8.7, Iron Level 39L, Total Iron Binding Capacity 270, Percent Iron Saturation 14L, Unsaturated Iron Binding 231, Ferritin 109, Total Bilirubin 0.3, Aspartate Amino Transf (AST/SGOT ) 30, Alanine Aminotransferase (ALT/SGPT) 22, Alkaline Phosphatase 91, Total Protein 7.5, Albumin 3.2L, Globulin 4.3, Albumin/Globulin Ratio 0.7L, Carcinoembryonic Antigen 1.2, Vitamin B12 Level 566, Folate 24.8, Thyroid Stimulating Hormone (TSH) 4.009H, Free Thyroxine 1.06 05/14/18 06:32: White Blood Count 7.5, Red Blood Count 4.35, Hemoglobin 12.5, Hematocrit 38.3, Mean Corpuscular Volume 88, Mean Corpuscular Hemoglobin 28.6, Mean Corpuscular Hemoglobin Concent 32.5, Red Cell Distribution Width 13.3, Platelet Count 202, Mean Platelet Volume 8.2, Neutrophils (%) (Auto) 53.2, Lymphocytes (%) (Auto) 39.4, Monocytes (%) (Auto) 4.7, Eosinophils (%) (Auto) 1.4, Basophils (%) (Auto ) 1.3, Sodium Level 140, Potassium Level 3.6, Chloride Level 104, Carbon Dioxide Level 25, Anion Gap 11, Blood Urea Nitrogen 3L, Creatinine 0.8, Estimat Glomerular Filtration Rate > 60, Glucose Level 83, Calcium Level 8.9 Height (Feet): 5 Height (Inches): 0.00 Weight (Pounds): 152 Objective exam Jasson Livingston MD May 14, 2018 09:11
--- NOTE | 2018-05-14 11:04 | GI Progress Note ---
Assessment/Plan Problems: (1) Abdominal pain of unknown etiology ICD Codes: R10.9 - Unspecified abdominal pain SNOMED: 210851772 (2) GERD (gastroesophageal reflux disease) ICD Codes: K21.9 - Gastro-esophageal reflux disease without esophagitis SNOMED: 250842881 (3) Anemia ICD Codes: D64.9 - Anemia, unspecified SNOMED: 544267443 (4) Pyelonephritis ICD Codes: N12 - Tubulo-interstitial nephritis, not specified as acute or chronic SNOMED: 86081243 Status: stable Status Narrative Discussed with Dr. Mariee Assessment/Plan SUMMARY OF FINDINGS: 1. Gastritis, status post biopsy. 2. Internal hemorrhoids. RECOMMENDATIONS: 1. Follow up biopsy results and treat accordingly. 2. Advance diet. 3. Discharge planning per primary team. The patient was seen and examined at bedside and all new and available data was reviewed in the patients chart. I agree with the above findings, impression and plan. (Patient seen earlier today. Signature stamp does not reflect patient encounter time.). - Luis E Mariee MD Subjective Subjective Still has complaint of abdominal pain Objective Last 24 Hour Vital Signs Date Time Temp Pulse Resp B/P (MAP) Pulse Ox O2 Delivery O2 Flow Rate FiO2 05/14/18 09:00 Room Air 05/14/18 08:26 98.8 05/14/18 08:00 98.8 75 18 121/56 (77) 94 05/14/18 04:00 98.1 69 18 99/53 (68) 95 05/14/18 00:00 98.7 68 18 104/54 (71) 95 05/13/18 21:00 Room Air 05/13/18 20:00 98.7 72 18 142/63 (89) 96 05/13/18 16:00 98.1 72 18 140/70 (93) 96 05/13/18 12:50 97.5 72 18 134/65 96 Room Air 72 05/13/18 12:45 72 19 123/63 96 Room Air 72 05/13/18 12:30 72 16 136/69 97 Room Air 70 05/13/18 12:25 77 18 144/66 98 Room Air 72 05/13/18 12:23 68 16 96 05/13/18 12:19 97.4 68 16 142/63 96 Room Air 68 Intake and Output 05/13/18 05/14/18 19:00 07:00 Intake Total 830.0 ml 195 ml Balance 830.0 ml 195 ml Intake Oral 270 ml 120 ml IV Total 560.0 ml 75 ml # Voids 3 1 Laboratory Tests Test 05/14/18 06:32 White Blood Count 7.5 K/UL (4.8-10.8) Red Blood Count 4.35 M/UL (4.20-5.40) Hemoglobin 12.5 G/DL (12.0-16.0) Hematocrit 38.3 % (37.0-47.0) Mean Corpuscular Volume 88 FL (80-99) Mean Corpuscular Hemoglobin 28.6 PG (27.0-31.0) Mean Corpuscular Hemoglobin Concent 32.5 G/DL (32.0-36.0) Red Cell Distribution Width 13.3 % (11.6-14.8) Platelet Count 202 K/UL (150-450) Mean Platelet Volume 8.2 FL (6.5-10.1) Neutrophils (%) (Auto) 53.2 % (45.0-75.0) Lymphocytes (%) (Auto) 39.4 % (20.0-45.0) Monocytes (%) (Auto) 4.7 % (1.0-10.0) Eosinophils (%) (Auto) 1.4 % (0.0-3.0) Basophils (%) (Auto) 1.3 % (0.0-2.0) Sodium Level 140 MMOL/L (136-145) Potassium Level 3.6 MMOL/L (3.5-5.1) Chloride Level 104 MMOL/L (98-107) Carbon Dioxide Level 25 MMOL/L (21-32) Anion Gap 11 mmol/L (5-15) Blood Urea Nitrogen 3 mg/dL (7-18) L Creatinine 0.8 MG/DL (0.55-1.30) Estimat Glomerular Filtration Rate > 60 mL/min (>60) Glucose Level 83 MG/DL (74-106) Calcium Level 8.9 MG/DL (8.5-10.1) Height (Feet): 5 Height (Inches): 0.00 Weight (Pounds): 152 General Appearance: WD/WN, no apparent distress, alert Cardiovascular: normal rate Respiratory/Chest: normal breath sounds, no respiratory distress Abdominal Exam: normal bowel sounds, non tender, soft Extremities: normal range of motion, non-tender Felisha Loza NP May 14, 2018 11:04
[2018-05-14 12:00] VITALS: BP 143/67
[2018-05-14 16:00] VITALS: BP 135/54
[2018-05-14] MEDS: LATUDA 60 MG ORAL SCH (17:02)
[2018-05-14] MEDS: cefTRIAXone 1 GM in D5W 55 ML IVPB SCH (17:50)
--- NOTE | 2018-05-14 19:48 | NUR ---
HAND-OFF: Report given to ARMINDA Waite.
--- NOTE | 2018-05-14 19:57 | Internal Med Progress Note ---
Subjective Date of Service: May 14, 2018 Physician Name WoodardRobbie Attending Physician Garcia Augustine MD Current Medications Medications (Trade) Dose Ordered Sig/Edil Route PRN Reason Start Time Stop Time Status Last Admin Dose Admin Acetaminophen (Tylenol) 650 mg Q6H PRN ORAL Mild Pain/Temp > 100.5 05/08/18 01:30 06/07/18 01:29 Acetaminophen/ Hydrocodone Bitart ([place] 5/325) 1 tab Q6H PRN ORAL Moderate Pain (Pain Scale 4-6) 05/08/18 07:00 05/15/18 06:59 05/12/18 06:14 Ceftriaxone Sodium 1 gm/ Dextrose 55 ml @ 110 mls/hr Q24H IVPB 05/08/18 17:00 05/15/18 16:59 05/14/18 17:50 Citalopram Hydrobromide (celeXA) 40 mg DAILY ORAL 05/09/18 09:00 06/08/18 08:59 05/14/18 08:43 Dextrose (Dextrose 50%) 25 ml Q30M PRN IV Hypoglycemia 05/08/18 01:30 06/07/18 01:29 Dextrose (Dextrose 50%) 50 ml Q30M PRN IV Hypoglycemia 05/08/18 01:30 06/07/18 01:29 Diphenhydramine HCl (Benadryl) 25 mg Q6H PRN ORAL Itching 05/08/18 15:45 06/07/18 15:44 05/11/18 11:12 Docusate Sodium (Colace) 100 mg TWICE A DAY ORAL 05/11/18 18:00 06/10/18 17:59 05/14/18 17:51 Heparin Sodium (Porcine) (Heparin 5000 units/ml) 5,000 units EVERY 8 HOURS SUBQ 05/08/18 06:00 06/07/18 05:59 05/14/18 13:51 Hydromorphone HCl (Dilaudid) 1 mg Q4H PRN IVP Severe Pain (Pain Scale 7-10) 05/08/18 01:30 05/15/18 01:29 05/14/18 17:01 Insulin Aspart (NovoLOG) BEFORE MEALS AND HS SUBQ 05/08/18 06:30 06/07/18 06:29 05/13/18 16:35 Lorazepam (Ativan) 1 mg BID ORAL 05/09/18 09:00 05/16/18 08:59 05/14/18 17:51 Metformin HCl (Glucophage) 1,000 mg BID ORAL 05/09/18 09:00 06/08/18 08:59 05/14/18 17:51 Naloxegol (Movantik) 25 mg DAILY ORAL 05/11/18 17:15 06/10/18 17:14 05/14/18 08:43 Ondansetron HCl (Zofran) 4 mg Q4H PRN IVP Nausea & Vomiting 05/08/18 01:30 06/07/18 01:29 05/12/18 17:31 Patient Own Medication (Patient's Own Med) 1 ea QPM ORAL 05/08/18 20:32 06/07/18 20:31 05/14/18 17:02 Sodium Chloride 1,000 ml @ 75 mls/hr [id number] IV 05/08/18 02:00 06/07/18 01:59 05/13/18 23:17 Trazodone HCl (Desyrel) 300 mg BEDTIME ORAL 05/08/18 21:00 06/07/18 20:59 05/13/18 23:16 Zolpidem Tartrate (Ambien) 5 mg HSPRN PRN ORAL Insomnia 05/08/18 07:15 05/15/18 07:14 Allergies: Coded Allergies: No Known Allergies (Unverified , 05/07/18) ROS Limited/Unobtainable: No Constitutional: Reports: no symptoms HEENT: Reports: no symptoms Cardiovascular: Reports: no symptoms Respiratory: Reports: no symptoms Gastrointestinal/Abdominal: Reports: no symptoms Genitourinary: Reports: no symptoms Neurologic/Psychiatric: Reports: no symptoms Subjective 52 YO F admitted with flank pain and lower abdominal pain. Now pyelonephritis and persistant LLQ pain. Cover for Int Med-Dr Augustine. S/P EGD and colonoscopy on 05/13/18. Abdominal pain improving Objective Last Vital Signs Date Time Temp Pulse Resp B/P (MAP) Pulse Ox O2 Delivery O2 Flow Rate FiO2 05/14/18 17:31 98.8 05/14/18 16:00 68 16 135/54 (81) 97 05/14/18 09:00 Room Air Laboratory Tests Test 05/14/18 06:32 White Blood Count 7.5 K/UL (4.8-10.8) Red Blood Count 4.35 M/UL (4.20-5.40) Hemoglobin 12.5 G/DL (12.0-16.0) Hematocrit 38.3 % (37.0-47.0) Mean Corpuscular Volume 88 FL (80-99) Mean Corpuscular Hemoglobin 28.6 PG (27.0-31.0) Mean Corpuscular Hemoglobin Concent 32.5 G/DL (32.0-36.0) Red Cell Distribution Width 13.3 % (11.6-14.8) Platelet Count 202 K/UL (150-450) Mean Platelet Volume 8.2 FL (6.5-10.1) Neutrophils (%) (Auto) 53.2 % (45.0-75.0) Lymphocytes (%) (Auto) 39.4 % (20.0-45.0) Monocytes (%) (Auto) 4.7 % (1.0-10.0) Eosinophils (%) (Auto) 1.4 % (0.0-3.0) Basophils (%) (Auto) 1.3 % (0.0-2.0) Sodium Level 140 MMOL/L (136-145) Potassium Level 3.6 MMOL/L (3.5-5.1) Chloride Level 104 MMOL/L (98-107) Carbon Dioxide Level 25 MMOL/L (21-32) Anion Gap 11 mmol/L (5-15) Blood Urea Nitrogen 3 mg/dL (7-18) L Creatinine 0.8 MG/DL (0.55-1.30) Estimat Glomerular Filtration Rate > 60 mL/min (>60) Glucose Level 83 MG/DL (74-106) Calcium Level 8.9 MG/DL (8.5-10.1) Intake and Output 05/13/18 05/14/18 19:00 07:00 Intake Total 830.0 ml 270 ml Balance 830.0 ml 270 ml Intake Oral 270 ml 120 ml IV Total 560.0 ml 150 ml # Voids 3 1 Objective PHYSICAL EXAMINATION: GENERAL: The patient is awake, responsive, and not in acute distress. HEENT: Head and neck examination, pupils are reactive to light. Extraocular movements are intact. Neck was supple. No JVD. LUNGS: Good air entry. No wheezing or rales. HEART: S1 and S2. Distant heart sounds. No murmurs or gallops. ABDOMEN: Soft, morbidly obese, tender in the left flank area, left lower quadrant. No rebound tenderness. No fluid shift. EXTREMITIES: No cyanosis, clubbing, or edema. NEUROLOGIC: Cranial nerves II through XII grossly intact. Motor is 5/5 in all extremities. Gait is intact. Assessment/Plan Assessment/Plan ASSESSMENT: 1. Left flank pain as well as left lower quadrant abdominal pain, UTI and pyelonephritis. 2. Diabetes type 2. 3. Morbid obesity. 4. gastritis PLAN: Admit the patient to medical floor. Gastroenterology consult for continued LLQ pain ?diverticulitis? CT=bladder stone S/P Endoscopy and colonoscopy 05/13/18=gastritis Urine culture=mixed gram pos cocci Continue Rocephin, and Accu-Chek with sliding scale. Discussed the case with Dr. Livingston from Urology. Code status is Full Code. DVT prophylaxis. Heparin subcutaneous. We will follow up with a renal ultrasound to rule out any possibility of the obstruction. Discussed with urology and gastroenterology DISCHARGE PLANNING Robbie Woodard MD May 14, 2018 19:57
--- NOTE | 2018-05-14 20:09 | NUR ---
NURSE NOTES: PATIENT IN BED, AWAKE, ALERT, VERBALLY RESPONSIVE. FAMILY AT BEDSIDE. IV IN PLACE, RUNNING IV FLUIDS. BED IN LOWEST POSITION, CALL LIGHT WITHIN REACH. NO S/S DISTRESS NOTED. WILL CONTINUE TO MONITOR.
[2018-05-14 20:43] VITALS: BP 121/56
[2018-05-14] MEDS: TraZODone 100mg tab ORAL SCH (20:54)
[2018-05-15] VITALS (16 sets, daily range): BP systolic 98–140; BP diastolic 45–70
--- NOTE | 2018-05-15 | NUR ---
NURSE NOTES: RECEIVED CALL FROM DR. DURAN AND RECEIVED ORDER TO PUT PATIENT NPO EXCEPT MEDS FOR POSSIBLE PROCEDURE TODAY AND FOR URINE SCREEN. ORDERS CARRIED OUT AND CHARGE NURSE MADE AWARE. ALSO EXPLAINED TO PATIENT NPO STATUS, PATIENT VERBALIZED UNDERSTANDING.
[2018-05-15] MEDS: Heparin 5000 units/ml inj SUBQ SCH ×3 (04:22→22:00)
--- NOTE | 2018-05-15 04:46 | NUR ---
NURSE NOTES: RECEIVED CALL FROM LAB, PATIENT'S SCREEN WAS NEGATIVE.
[2018-05-15] MEDS: NovoLOG Insulin Flexpen SUBQ SCH ×4 (05:50→21:00)
[2018-05-15] MEDS: HYDROmorphone 1mg/ml Carpuject IVP PRN ×3 (06:32→21:29)
[2018-05-15 06:41] LABS: BASOPHILS % (AUTO) 0.8 % (0.0-2.0); HEMATOCRIT 39.6 % (37.0-47.0); HEMOGLOBIN 12.8 G/DL (12.0-16.0); LYMPHOCYTES % (AUTO) 27.6 % (20.0-45.0); MEAN CORPUSCULAR VOLUME 87 FL (80-99); MONOCYTES % (AUTO) 3.8 % (1.0-10.0); NEUTROPHILS % (AUTO) 66.9 % (45.0-75.0); PLATELET COUNT 282 K/UL (150-450); RED BLOOD COUNT 4.53 M/UL (4.20-5.40); RED CELL DISTRIBUTION WIDTH 12.9 % (11.6-14.8); WHITE BLOOD COUNT 8.9 K/UL (4.8-10.8)
--- NOTE | 2018-05-15 07:22 | NUR ---
HAND-OFF: Report given to Sarah BOOTH RN.
--- NOTE | 2018-05-15 07:52 | NUR ---
NURSE NOTES: Received patient awake, alert. Denies any pain at this time. IV in RFA intact. on NPO. All needs at this time. Will cont to monitor.
[2018-05-15 08:15] LABS: ANION GAP 10 mmol/L (5-15); BLOOD UREA NITROGEN 3 mg/dL (7-18); CALCIUM 9.5 MG/DL (8.5-10.1); CARBON DIOXIDE 27 MMOL/L (21-32); CHLORIDE 103 MMOL/L (98-107); CREATININE 0.8 MG/DL (0.55-1.30); POTASSIUM 3.7 MMOL/L (3.5-5.1); SODIUM 140 MMOL/L (136-145)
[2018-05-15] MEDS: Naloxegol Oxalate 25mg tab ORAL SCH (09:00)
[2018-05-15] MEDS: LORazepam 1mg tab ORAL SCH ×2 (09:00→17:41)
[2018-05-15] MEDS: metFORMIN 500mg tab ORAL SCH ×2 (09:00→17:41)
[2018-05-15] MEDS: Docusate 100mg cap ORAL SCH ×2 (09:00→17:41)
[2018-05-15] MEDS: Citalopram Hydrobromide 10mg Tab ORAL SCH (09:00)
--- NOTE | 2018-05-15 10:34 | Urology Progress Note ---
Assessment/Plan Assessment/Plan 1. Abdominal pain, etiology uncertain, possibly secondary to a recently passed ureteral calculus. 2. Hematuria history. 3. Pyuria. 4. Proteinuria. 5. Urinary frequency. 6. Small bladder calculus. still with pain no obvious urologic source monitor clinically on abx further imaging? GI f/u d/w Dr. Woodard d/w pt fully plan cysto/retrograde study today to check bladder and ureter for any poss etiology of pain Subjective Allergies: Coded Allergies: No Known Allergies (Unverified , 05/07/18) Subjective all noted, still with pain, poss a bit better?, plan cysto today Objective Last 24 Hour Vital Signs Date Time Temp Pulse Resp B/P (MAP) Pulse Ox O2 Delivery O2 Flow Rate FiO2 05/15/18 09:00 Room Air 05/15/18 08:00 98.5 64 18 110/66 (81) 93 05/15/18 07:02 98.6 05/15/18 04:20 98.6 61 18 127/66 (86) 93 05/15/18 00:34 97.9 60 18 99/54 (69) 93 05/14/18 22:18 98.8 05/14/18 21:48 Room Air 05/14/18 20:43 98.8 65 18 121/56 (77) 100 05/14/18 16:00 98.4 68 16 135/54 (81) 97 05/14/18 12:00 98.1 74 18 143/67 (92) 95 Intake and Output 05/14/18 05/15/18 19:00 07:00 Intake Total 1755 ml Balance 1755 ml Intake Oral 800 ml IV Total 955 ml # Voids 4 2 # Bowel Movements 1 Microbiology Date/Time Source Procedure Growth Status 05/08/18 02:09 Blood Blood Culture - Final NO GROWTH AFTER 5 DAYS Complete 05/08/18 12:30 Urine,Clean Catch Urine Culture - Final Mixed Gram Positive Organism Complete Current Medications Medications (Trade) Dose Ordered Sig/Edil Route PRN Reason Start Time Stop Time Status Last Admin Dose Admin Acetaminophen (Tylenol) 650 mg Q6H PRN ORAL Mild Pain/Temp > 100.5 05/08/18 01:30 06/07/18 01:29 Ceftriaxone Sodium 1 gm/ Dextrose 55 ml @ 110 mls/hr Q24H IVPB 05/08/18 17:00 2/22/19 16:59 05/14/18 17:50 Citalopram Hydrobromide (celeXA) 40 mg DAILY ORAL 05/09/18 09:00 06/08/18 08:59 05/14/18 08:43 Dextrose (Dextrose 50%) 25 ml Q30M PRN IV Hypoglycemia 05/08/18 01:30 06/07/18 01:29 Dextrose (Dextrose 50%) 50 ml Q30M PRN IV Hypoglycemia 05/08/18 01:30 06/07/18 01:29 Diphenhydramine HCl (Benadryl) 25 mg Q6H PRN ORAL Itching 05/08/18 15:45 06/07/18 15:44 05/11/18 11:12 Docusate Sodium (Colace) 100 mg TWICE A DAY ORAL 05/11/18 18:00 06/10/18 17:59 05/14/18 17:51 Heparin Sodium (Porcine) (Heparin 5000 units/ml) 5,000 units EVERY 8 HOURS SUBQ 05/08/18 06:00 06/07/18 05:59 05/14/18 21:53 Hydromorphone HCl (Dilaudid) 1 mg Q4H PRN IVP Severe Pain (Pain Scale 7-10) 05/15/18 06:30 05/22/18 06:29 05/15/18 06:32 Insulin Aspart (NovoLOG) BEFORE MEALS AND HS SUBQ 05/08/18 06:30 06/07/18 06:29 05/14/18 20:56 Lorazepam (Ativan) 1 mg BID ORAL 05/09/18 09:00 05/16/18 08:59 05/14/18 17:51 Metformin HCl (Glucophage) 1,000 mg BID ORAL 05/09/18 09:00 06/08/18 08:59 05/14/18 17:51 Naloxegol (Movantik) 25 mg DAILY ORAL 05/11/18 17:15 06/10/18 17:14 05/14/18 08:43 Ondansetron HCl (Zofran) 4 mg Q4H PRN IVP Nausea & Vomiting 05/08/18 01:30 06/07/18 01:29 05/12/18 17:31 Patient Own Medication (Patient's Own Med) 1 ea QPM ORAL 05/08/18 20:32 06/07/18 20:31 05/14/18 17:02 Sodium Chloride 1,000 ml @ 75 mls/hr [id number] IV 05/08/18 02:00 06/07/18 01:59 05/15/18 05:54 Trazodone HCl (Desyrel) 300 mg BEDTIME ORAL 05/08/18 21:00 06/07/18 20:59 05/14/18 20:54 Laboratory Tests 05/15/18 03:53: Urine HCG, Qualitative Negative 05/15/18 05:55: White Blood Count 8.9, Red Blood Count 4.53, Hemoglobin 12.8, Hematocrit 39.6, Mean Corpuscular Volume 87, Mean Corpuscular Hemoglobin 28.2, Mean Corpuscular Hemoglobin Concent 32.3, Red Cell Distribution Width 12.9, Platelet Count 282, Mean Platelet Volume 7.0, Neutrophils (%) (Auto) 66.9, Lymphocytes (%) (Auto) 27.6, Monocytes (%) (Auto) 3.8, Eosinophils (%) (Auto) 1.0, Basophils (%) (Auto ) 0.8, Sodium Level 140, Potassium Level 3.7, Chloride Level 103, Carbon Dioxide Level 27, Anion Gap 10, Blood Urea Nitrogen 3L, Creatinine 0.8, Estimat Glomerular Filtration Rate > 60, Glucose Level 95, Calcium Level 9.5 Height (Feet): 5 Height (Inches): 0.00 Weight (Pounds): 152 Objective exam stable Jasson Livingston MD May 15, 2018 10:34
--- NOTE | 2018-05-15 10:48 | GI Progress Note ---
Assessment/Plan Problems: (1) Abdominal pain of unknown etiology ICD Codes: R10.9 - Unspecified abdominal pain SNOMED: 738505932 (2) GERD (gastroesophageal reflux disease) ICD Codes: K21.9 - Gastro-esophageal reflux disease without esophagitis SNOMED: 897182790 (3) Anemia ICD Codes: D64.9 - Anemia, unspecified SNOMED: 990222063 (4) Pyelonephritis ICD Codes: N12 - Tubulo-interstitial nephritis, not specified as acute or chronic SNOMED: 68647437 Status: stable, unchanged Status Narrative Discussed with Dr. Mariee Assessment/Plan SUMMARY OF FINDINGS: 1. Gastritis, status post biopsy. 2. Internal hemorrhoids. RECOMMENDATIONS: 1. Follow up biopsy results and treat accordingly.>> Mild chronic gastritis. Negative for H. pylori 2. Advance diet. 3. Discharge planning per primary team. The patient was seen and examined at bedside and all new and available data was reviewed in the patients chart. I agree with the above findings, impression and plan. (Patient seen earlier today. Signature stamp does not reflect patient encounter time.). - Luis E Mariee MD Subjective Subjective abdominal pain Objective Last 24 Hour Vital Signs Date Time Temp Pulse Resp B/P (MAP) Pulse Ox O2 Delivery O2 Flow Rate FiO2 05/15/18 09:00 Room Air 05/15/18 08:00 98.5 64 18 110/66 (81) 93 05/15/18 07:02 98.6 05/15/18 04:20 98.6 61 18 127/66 (86) 93 05/15/18 00:34 97.9 60 18 99/54 (69) 93 05/14/18 22:18 98.8 05/14/18 21:48 Room Air 05/14/18 20:43 98.8 65 18 121/56 (77) 100 05/14/18 16:00 98.4 68 16 135/54 (81) 97 05/14/18 12:00 98.1 74 18 143/67 (92) 95 Intake and Output 05/14/18 05/15/18 19:00 07:00 Intake Total 1755 ml Balance 1755 ml Intake Oral 800 ml IV Total 955 ml # Voids 4 2 # Bowel Movements 1 Laboratory Tests Test 05/15/18 03:53 05/15/18 05:55 Urine HCG, Qualitative Negative (NEGATIVE) White Blood Count 8.9 K/UL (4.8-10.8) Red Blood Count 4.53 M/UL (4.20-5.40) Hemoglobin 12.8 G/DL (12.0-16.0) Hematocrit 39.6 % (37.0-47.0) Mean Corpuscular Volume 87 FL (80-99) Mean Corpuscular Hemoglobin 28.2 PG (27.0-31.0) Mean Corpuscular Hemoglobin Concent 32.3 G/DL (32.0-36.0) Red Cell Distribution Width 12.9 % (11.6-14.8) Platelet Count 282 K/UL (150-450) Mean Platelet Volume 7.0 FL (6.5-10.1) Neutrophils (%) (Auto) 66.9 % (45.0-75.0) Lymphocytes (%) (Auto) 27.6 % (20.0-45.0) Monocytes (%) (Auto) 3.8 % (1.0-10.0) Eosinophils (%) (Auto) 1.0 % (0.0-3.0) Basophils (%) (Auto) 0.8 % (0.0-2.0) Sodium Level 140 MMOL/L (136-145) Potassium Level 3.7 MMOL/L (3.5-5.1) Chloride Level 103 MMOL/L (98-107) Carbon Dioxide Level 27 MMOL/L (21-32) Anion Gap 10 mmol/L (5-15) Blood Urea Nitrogen 3 mg/dL (7-18) L Creatinine 0.8 MG/DL (0.55-1.30) Estimat Glomerular Filtration Rate > 60 mL/min (>60) Glucose Level 95 MG/DL (74-106) Calcium Level 9.5 MG/DL (8.5-10.1) Height (Feet): 5 Height (Inches): 0.00 Weight (Pounds): 152 General Appearance: WD/WN, no apparent distress, alert Cardiovascular: normal rate Respiratory/Chest: normal breath sounds, no respiratory distress Abdominal Exam: normal bowel sounds, non tender, soft Extremities: normal range of motion, non-tender Felisha Loza VP [employer] May 15, 2018 10:48
--- NOTE | 2018-05-15 13:07 | Anethesia Preoperative Eval ---
Anesthesia Pre-op PMH/ROS General Date of Evaluation: May 15, 2018 Anesthesiologist: Anthony ASA Score: ASA 2 Mallampati Score Class I : Soft palate, uvula, fauces, pillars visible Class II: Soft palate, uvula, fauces visible Class III: Soft palate, base of uvula visible Class IV: Only hard plate visible Mallampati Classification: Class II Surgeon: Miki Diagnosis: pyelonephritis Surgical Procedure: Cystoscopy, retrograde pyelogram Anesthesia History: none Family History: no anesthesia problems Allergies: Coded Allergies: No Known Allergies (Unverified , 05/07/18) Patient NPO?: Yes NPO Date: May 15, 2018 NPO Time: 0000 Past Medical History Cardiovascular: Denies: HTN, CAD, PA, valve dz, arrhythmia, other Pulmonary: Denies: asthma, COPD, ARYAN, other Gastrointestinal/Genitourinary: Denies: GERD, CRI, ESRD, other Neurologic/Psychiatric: Reports: depression/anxiety; Denies: dementia, CVA, TIA, other Endocrine: Reports: DM; Denies: hypothyroidism, steroids, other HEENT: Denies: cataract (L), cataract (R), glaucoma, CAHTO (L), CAHTO (R), other Hematology/Immune: Denies: anemia, DVT, bleeding disorder, other Musculoskeletal/Integumentary: Denies: OA, RA, DJD, DDD, edema, other Other: obesity PSxH Narrative: oophorectomy Anesthesia Pre-op Phys. Exam Physician Exam Last Vital Signs Date Time Temp Pulse Resp B/P (MAP) Pulse Ox O2 Delivery O2 Flow Rate FiO2 05/15/18 12:00 98.1 67 18 120/63 (82) 93 05/15/18 09:00 Room Air Constitutional: NAD Cardiovascular: RRR Respiratory: CTA Airway Exam Mallampati Score: Class II MO: full ROM: full Anesthesia Pre-op A/P Labs Hematology Test 05/15/18 05:55 White Blood Count 8.9 K/UL (4.8-10.8) Red Blood Count 4.53 M/UL (4.20-5.40) Hemoglobin 12.8 G/DL (12.0-16.0) Hematocrit 39.6 % (37.0-47.0) Mean Corpuscular Volume 87 FL (80-99) Mean Corpuscular Hemoglobin 28.2 PG (27.0-31.0) Mean Corpuscular Hemoglobin Concent 32.3 G/DL (32.0-36.0) Red Cell Distribution Width 12.9 % (11.6-14.8) Platelet Count 282 K/UL (150-450) Mean Platelet Volume 7.0 FL (6.5-10.1) Neutrophils (%) (Auto) 66.9 % (45.0-75.0) Lymphocytes (%) (Auto) 27.6 % (20.0-45.0) Monocytes (%) (Auto) 3.8 % (1.0-10.0) Eosinophils (%) (Auto) 1.0 % (0.0-3.0) Basophils (%) (Auto) 0.8 % (0.0-2.0) Chemistry Test 05/15/18 05:55 Sodium Level 140 MMOL/L (136-145) Potassium Level 3.7 MMOL/L (3.5-5.1) Chloride Level 103 MMOL/L (98-107) Carbon Dioxide Level 27 MMOL/L (21-32) Anion Gap 10 mmol/L (5-15) Blood Urea Nitrogen 3 mg/dL (7-18) L Creatinine 0.8 MG/DL (0.55-1.30) Estimat Glomerular Filtration Rate > 60 mL/min (>60) Glucose Level 95 MG/DL (74-106) Calcium Level 9.5 MG/DL (8.5-10.1) Urine Test Test 05/15/18 03:53 Urine HCG, Qualitative Negative (NEGATIVE) Studies Pre-op Studies: EKG - sr Risk Assessment & Plan Assessment: ASA II Plan: GA Status Change Before Surgery: No Pre-Antibiotics Drug: Cyn Neumann MD May 15, 2018 13:07
[2018-05-15] MEDS ORDERED: Propofol 200mg/20ml IV ONE (13:14)
[2018-05-15] MEDS ORDERED: Lidocaine 1% MPF 10mg/ml 5ml ONE (13:14)
[2018-05-15] MEDS ORDERED: Midazolam 2mg/2ml Inj IVP PRN (13:15)
[2018-05-15] MEDS ORDERED: Hydromorphone 0.5mg/0.5ml inj IVP PRN (13:15)
[2018-05-15] MEDS ORDERED: fentaNYL 100 mcg/2 mL IV PRN (13:15)
[2018-05-15] MEDS ORDERED: DiphenhydrAMINE 50mg/ml Inj IVP PRN (13:15)
[2018-05-15] MEDS ORDERED: LORazepam Inj 2mg/ml 1ml IV PRN (13:15)
[2018-05-15] MEDS ORDERED: Zemuron 50mg/5ml Inj IV ONE (13:25)
--- NOTE | 2018-05-15 13:52 | NUR ---
RD ASSESSMENT & RECOMMENDATIONS SEE CARE ACTIVITY FOR COMPLETE ASSESSMENT DAILY ESTIMATED NEEDS: Needs based on DM 51kg adj 25-30 kcals/kg 9590-0624 total kcals 1-1.5 g protein/kg 51-77 g total protein 25-30 mL/kg 3782-9397 total fluid mLs NUTRITION DIAGNOSIS: Altered nutrition related lab values r/t diabetes as evidenced by A1C 12.0. CURRENT DIET: Now NPO PO DIET RECOMMENDATIONS: CCHO LOW ADDITIONAL RECOMMENDATIONS: 1) Obtain a standing weight as able 2) Diet edu when appropriate 3) Monitor PO intake need for additional nourishment
--- NOTE | 2018-05-15 13:54 | Pre-Procedure Note/Attestation ---
Pre-Procedure Note/Attestation Complete Prior to Procedure Planned Procedure: bilateral Procedure Narrative: cysto, retrograde pyelogram, possible ureteroscopy, ureteral stent Indications for Procedure Pre-Operative Diagnosis: flank pain Attestation I attest that I discussed the nature of the procedure; its benefits; risks and complications; and alternatives (and the risks and benefits of such alternatives ), prior to the procedure, with the patient (or the patient's legal in store marketing representative). I attest that, if there was a reasonable possibility of needing a blood transfusion, the patient (or the patient's legal in store marketing representative) was given the [facility] standardized written summary, pursuant to the Ronald Bardolph Blood Safety Act ([place] Health and Safety Code # 1645, as amended). I attest that I re-evaluated the patient just prior to the surgery and that there has been no change in the patient's H&P, except as documented below: Jasson Livingston MD May 15, 2018 13:54
[2018-05-15] MEDS ORDERED: Iothalamate Meglumine 60% 30ML INJ ONE (14:15)
[2018-05-15] MEDS ORDERED: Sterile Water For Irrig 2000ml IRRIG ONE (14:15)
--- NOTE | 2018-05-15 14:16 | NUR ---
NURSE NOTES: 1330 patient taken down to surgery. alert, awake verbally responsive. with no sob/respi distress.
--- NOTE | 2018-05-15 15:04 | Immediate Post-Op Evaluation ---
Immediate Post-Op Evalulation Immediate Post-Op Evalulation Procedure: EGD and colonoscopy Date of Evaluation: May 15, 2018 Time of Evaluation: 15:06 IV Fluids: 400 Blood Products: 0 Estimated Blood Loss: 0 Urinary Output: 0 Blood Pressure Systolic: 98 Blood Pressure Diastolic: 45 Pulse Rate: 62 Respiratory Rate: 12 O2 Sat by Pulse Oximetry: 97 Temperature (Fahrenheit): 97.7 Pain Score (1-10): 0 Nausea: No Vomiting: No Complications 0 Patient Status: awake, reacts, patent, none Hydration Status: adequate Drug: Ancef 1g Given Within 1 Hr of Incision: Yes Cyn Watson MD May 15, 2018 15:04
--- NOTE | 2018-05-15 15:26 | Brief Operative Note ---
Immediate Post Operative Note Operative Note Pre-op Diagnosis: left flank pain Procedure: cysto, left retrograde pyelogram, ureteroscopy Post-op Diagnosis: same as pre-op Findings: consistent w/pre-op dx studies, other - some bladder trigonitis/ chronic cystitis, o/w essentially negative Surgeon: daisy Anesthesiologist: fran Anesthesia: general Specimen: none Complications: none Condition: stable Fluids: NS Drains: none Implant(s) used?: No Jasson Livingston MD May 15, 2018 15:26
--- NOTE | 2018-05-15 15:58 | Diagnostic Imaging Report ---
Indication: Flank pain. Retrograde pyelogram Comparison: None Findings: Fluoroscopic images showing injection of contrast within the left ureter on multiple projections. IMPRESSION: Intraoperative imaging
--- NOTE | 2018-05-15 16:27 | NUR ---
NURSE NOTES: Patient back from surgery. s/p Cystoscopy, Retrograde pyelogram. Awake, alert, verbally responsive. with no sob. Denies pain at this time. Vitals taken. Will cont to monitor.
--- NOTE | 2018-05-15 17:02 | Internal Med Progress Note ---
Subjective Physician Name Garcia Augustine Attending Physician Garcia Augustine MD Current Medications Medications (Trade) Dose Ordered Sig/Edil Route PRN Reason Start Time Stop Time Status Last Admin Dose Admin Acetaminophen (Tylenol) 650 mg Q4H PRN ORAL Mild Pain (Pain Scale 1-3) 05/15/18 13:15 05/15/18 19:00 Acetaminophen (Tylenol) 650 mg Q6H PRN ORAL Mild Pain/Temp > 100.5 05/08/18 01:30 06/07/18 01:29 Ceftriaxone Sodium 1 gm/ Dextrose 55 ml @ 110 mls/hr Q24H IVPB 05/08/18 17:00 05/15/18 16:59 05/14/18 17:50 Citalopram Hydrobromide (celeXA) 40 mg DAILY ORAL 05/09/18 09:00 06/08/18 08:59 05/14/18 08:43 Dextrose (Dextrose 50%) 25 ml Q30M PRN IV Hypoglycemia 05/08/18 01:30 06/07/18 01:29 Dextrose (Dextrose 50%) 50 ml Q30M PRN IV Hypoglycemia 05/08/18 01:30 06/07/18 01:29 Diphenhydramine HCl (Benadryl) 25 mg Q15M PRN IVP Itching 05/15/18 13:15 05/15/18 19:00 Diphenhydramine HCl (Benadryl) 25 mg Q6H PRN ORAL Itching 05/08/18 15:45 06/07/18 15:44 05/11/18 11:12 Docusate Sodium (Colace) 100 mg TWICE A DAY ORAL 05/11/18 18:00 06/10/18 17:59 05/14/18 17:51 Fentanyl Citrate (Sublimaze 100 mcg/2 mL) 25 mcg Q10M PRN IV Moderate Pain (Pain Scale 4-6) 05/15/18 13:15 05/15/18 19:00 Heparin Sodium (Porcine) (Heparin 5000 units/ml) 5,000 units EVERY 8 HOURS SUBQ 05/08/18 06:00 06/07/18 05:59 05/14/18 21:53 Hydralazine HCl (Apresoline) 5 mg Q30M PRN IV SBP>160 /DBP>90 05/15/18 13:15 05/15/18 19:00 Hydromorphone HCl (Dilaudid) 0.5 mg Q15M PRN IVP Severe Pain (Pain Scale 7-10) 05/15/18 13:15 05/15/18 19:00 Hydromorphone HCl (Dilaudid) 1 mg Q4H PRN IVP Severe Pain (Pain Scale 7-10) 05/15/18 06:30 05/22/18 06:29 05/15/18 10:47 Insulin Aspart (NovoLOG) BEFORE MEALS AND HS SUBQ 05/08/18 06:30 06/07/18 06:29 05/14/18 20:56 Lorazepam (Ativan 2mg/ml 1ml) 0.5 mg Q15M PRN IV For Anxiety 05/15/18 13:15 05/15/18 19:00 Lorazepam (Ativan) 1 mg BID ORAL 05/09/18 09:00 05/16/18 08:59 05/14/18 17:51 Metformin HCl (Glucophage) 1,000 mg BID ORAL 05/09/18 09:00 06/08/18 08:59 05/14/18 17:51 Midazolam HCl (Versed 2mg/2ml vial) 1 mg Q15M PRN IVP For Anxiety 05/15/18 13:15 05/15/18 19:00 Naloxegol (Movantik) 25 mg DAILY ORAL 05/11/18 17:15 06/10/18 17:14 05/14/18 08:43 Ondansetron HCl (Zofran) 4 mg Q4H PRN IVP Nausea & Vomiting 05/08/18 01:30 06/07/18 01:29 05/12/18 17:31 Patient Own Medication (Patient's Own Med) 1 ea QPM ORAL 05/08/18 20:32 06/07/18 20:31 05/14/18 17:02 Sodium Chloride 1,000 ml @ 75 mls/hr [id number] IV 05/08/18 02:00 06/07/18 01:59 05/15/18 05:54 Trazodone HCl (Desyrel) 300 mg BEDTIME ORAL 05/08/18 21:00 06/07/18 20:59 05/14/18 20:54 Allergies: Coded Allergies: No Known Allergies (Unverified , 05/07/18) Subjective awake, alert, responsive, C/O Left side abdominal pain Objective Last Vital Signs Date Time Temp Pulse Resp B/P (MAP) Pulse Ox O2 Delivery O2 Flow Rate FiO2 05/15/18 16:14 97.9 76 18 140/70 (93) 96 05/15/18 15:52 Nasal Cannula 3 Laboratory Tests Test 05/15/18 03:53 05/15/18 05:55 Urine HCG, Qualitative Negative (NEGATIVE) White Blood Count 8.9 K/UL (4.8-10.8) Red Blood Count 4.53 M/UL (4.20-5.40) Hemoglobin 12.8 G/DL (12.0-16.0) Hematocrit 39.6 % (37.0-47.0) Mean Corpuscular Volume 87 FL (80-99) Mean Corpuscular Hemoglobin 28.2 PG (27.0-31.0) Mean Corpuscular Hemoglobin Concent 32.3 G/DL (32.0-36.0) Red Cell Distribution Width 12.9 % (11.6-14.8) Platelet Count 282 K/UL (150-450) Mean Platelet Volume 7.0 FL (6.5-10.1) Neutrophils (%) (Auto) 66.9 % (45.0-75.0) Lymphocytes (%) (Auto) 27.6 % (20.0-45.0) Monocytes (%) (Auto) 3.8 % (1.0-10.0) Eosinophils (%) (Auto) 1.0 % (0.0-3.0) Basophils (%) (Auto) 0.8 % (0.0-2.0) Sodium Level 140 MMOL/L (136-145) Potassium Level 3.7 MMOL/L (3.5-5.1) Chloride Level 103 MMOL/L (98-107) Carbon Dioxide Level 27 MMOL/L (21-32) Anion Gap 10 mmol/L (5-15) Blood Urea Nitrogen 3 mg/dL (7-18) L Creatinine 0.8 MG/DL (0.55-1.30) Estimat Glomerular Filtration Rate > 60 mL/min (>60) Glucose Level 95 MG/DL (74-106) Calcium Level 9.5 MG/DL (8.5-10.1) Intake and Output 05/14/18 05/15/18 19:00 07:00 Intake Total 1755 ml Balance 1755 ml Intake Oral 800 ml IV Total 955 ml # Voids 4 2 # Bowel Movements 1 Objective GENERAL: The patient is awake, responsive, and not in acute distress. HEENT: Head and neck examination, pupils are reactive to light. Extraocular movements are intact. Neck was supple. No JVD. LUNGS: Good air entry. No wheezing or rales. HEART: S1 and S2. Distant heart sounds. No murmurs or gallops. ABDOMEN: Soft, morbidly obese, tenderness at left lower quadrant. No rebound tenderness. No fluid shift. EXTREMITIES: No cyanosis, clubbing, or edema. NEUROLOGIC: Cranial nerves II through XII grossly intact. Motor is 5/5 in all extremities. Gait is intact. Assessment/Plan Assessment/Plan ASSESSMENT: 1. Left flank pain as well as left lower quadrant abdominal pain possible pyelonephritis. 2. Diabetes type 2. 3. Morbid obesity. 4. gastritis PLAN: Admit the patient to medical floor. Gastroenterology consult for continued LLQ pain ?diverticulitis? CT=bladder stone S/P Endoscopy and colonoscopy 05/13/18=gastritis Urine culture=mixed gram pos cocci Continue Rocephin, and Accu-Chek with sliding scale. Discussed the case with Dr. Livingston from Urology. Code status is Full Code. DVT prophylaxis. Heparin subcutaneous. We will follow up with a renal ultrasound to rule out any possibility of the obstruction. Discussed with urology and gastroenterology DISCHARGE PLANNING for AM. Garcia Augustine MD May 15, 2018 17:02
--- NOTE | 2018-05-15 17:04 | NUR ---
CASE MANAGEMENT:REVIEW 05/14/18 SI:PYELONEPHRITIS. PERSISTENT LLQ PAIN 98.1 74 18 143/67 95% ON RA IS: IV ROCEPHIN Q24 IVF@75/HR IV DILAUDID Q4HRS PRN : MED/SURG STATUS 3 [facility] 05/15/18 SI:PYELONEPHRITIS. PERSISTENT LLQ PAIN 97.8 77 18 135/67 95% ON 3L/NC IS: TO SURGERY~ CYSTO, LT RETROGRADE PYELOGRAM, URETEROSCOPY IV DILAUDID Q4HRS PRN COLACE PO BID IVF @76/HR HEPARIN SQ Q8HRS : MED/SURG 3 [facility]
[2018-05-15] MEDS: LATUDA 60 MG ORAL SCH (17:41)
[2018-05-15] MEDS ORDERED: Tubing IV Secondary IV ONE (18:48)
--- NOTE | 2018-05-15 19:17 | NUR ---
HAND-OFF: Report given to Jose. Laney RN.
--- NOTE | 2018-05-15 20:00 | NUR ---
NURSE NOTES: Patient in bed awake and oriented. VSS. No SOB noted. 8/10 lower abdominal pain per patient. PRN pain meds given. Tolerated well. Family at bedside. IV fluids running and tolerated well. Bed in low position. Call light within reach. Needs attended. Family at bedside. In stable condition.
[2018-05-15] MEDS: TraZODone 100mg tab ORAL SCH (21:28)
[2018-05-16] VITALS: BP 102/61
[2018-05-16 04:00] VITALS: BP 118/59
[2018-05-16 06:08] LABS: BASOPHILS % (AUTO) 0.9 % (0.0-2.0); EOSINOPHILS % (AUTO) 0.8 % (0.0-3.0); HEMATOCRIT 38.4 % (37.0-47.0); HEMOGLOBIN 12.7 G/DL (12.0-16.0); LYMPHOCYTES % (AUTO) 31.2 % (20.0-45.0); MEAN CORPUSCULAR VOLUME 87 FL (80-99); MONOCYTES % (AUTO) 3.8 % (1.0-10.0); NEUTROPHILS % (AUTO) 63.4 % (45.0-75.0); PLATELET COUNT 230 K/UL (150-450); RED BLOOD COUNT 4.42 M/UL (4.20-5.40); RED CELL DISTRIBUTION WIDTH 13.6 % (11.6-14.8); WHITE BLOOD COUNT 8.7 K/UL (4.8-10.8)
[2018-05-16 06:23] LABS: ANION GAP 8 mmol/L (5-15); BLOOD UREA NITROGEN 6 mg/dL (7-18); CALCIUM 9.5 MG/DL (8.5-10.1); CARBON DIOXIDE 28 MMOL/L (21-32); CHLORIDE 104 MMOL/L (98-107); CREATININE 0.7 MG/DL (0.55-1.30); SODIUM 140 MMOL/L (136-145)
[2018-05-16] MEDS: Heparin 5000 units/ml inj SUBQ SCH ×2 (06:25→14:34)
[2018-05-16] MEDS: NovoLOG Insulin Flexpen SUBQ SCH ×2 (06:26→11:30)
--- NOTE | 2018-05-16 07:37 | NUR ---
NURSE NOTES: Received pt from Yadiel Bay RN, pt was eating no c/o pain, call light w/in reach
[2018-05-16 08:00] VITALS: BP 103/55
[2018-05-16] MEDS: Docusate 100mg cap ORAL SCH (09:24)
[2018-05-16] MEDS: Naloxegol Oxalate 25mg tab ORAL SCH (09:25)
[2018-05-16] MEDS: metFORMIN 500mg tab ORAL SCH (09:25)
[2018-05-16] MEDS: Citalopram Hydrobromide 10mg Tab ORAL SCH (09:25)
--- NOTE | 2018-05-16 09:36 | Urology Progress Note ---
Assessment/Plan Assessment/Plan 1. Abdominal pain, etiology uncertain, possibly secondary to a recently passed ureteral calculus. 2. Hematuria history. 3. Pyuria. 4. Proteinuria. 5. Urinary frequency. 6. Small bladder calculus. 7. POD # 1, cysto pain improved no obvious urologic source monitor clinically s/p abx add a few days of cipro prophylaxis post cysto further imaging? GI f/u Subjective Allergies: Coded Allergies: No Known Allergies (Unverified , 05/07/18) Subjective all noted, much less pain today Objective Last 24 Hour Vital Signs Date Time Temp Pulse Resp B/P (MAP) Pulse Ox O2 Delivery O2 Flow Rate FiO2 05/16/18 08:11 Room Air 05/16/18 04:00 97.8 60 18 118/59 (78) 94 05/16/18 00:00 98.4 63 18 102/61 (75) 94 05/15/18 21:00 Room Air 05/15/18 20:00 98.4 71 18 135/66 (89) 93 05/15/18 18:43 97.7 80 18 132/70 (90) 96 05/15/18 17:43 97.7 79 18 134/68 (90) 96 05/15/18 16:43 97.8 77 18 135/67 (89) 95 05/15/18 16:14 97.9 76 18 140/70 (93) 96 05/15/18 15:52 98.0 70 13 124/59 99 Nasal Cannula 3 05/15/18 15:45 75 17 125/63 99 Nasal Cannula 3 05/15/18 15:30 64 16 116/58 97 Simple Mask 6 05/15/18 15:20 62 15 113/56 97 Simple Mask 6 05/15/18 15:10 62 15 110/59 97 Simple Mask 6 05/15/18 15:05 65 11 107/58 97 Simple Mask 6 05/15/18 15:04 62 12 97 05/15/18 15:01 97.7 62 12 98/45 97 Simple Mask 6 05/15/18 12:00 98.1 67 18 120/63 (82) 93 Intake and Output 05/15/18 05/16/18 18:59 06:59 Intake Total 400 ml 300 ml Balance 400 ml 300 ml IV Total 400 ml 300 ml # Voids 1 Microbiology Date/Time Source Procedure Growth Status 05/08/18 02:09 Blood Blood Culture - Final NO GROWTH AFTER 5 DAYS Complete 05/08/18 12:30 Urine,Clean Catch Urine Culture - Final Mixed Gram Positive Organism Complete Current Medications Medications (Trade) Dose Ordered Sig/Edil Route PRN Reason Start Time Stop Time Status Last Admin Dose Admin Acetaminophen (Tylenol) 650 mg Q6H PRN ORAL Mild Pain/Temp > 100.5 05/08/18 01:30 06/07/18 01:29 Citalopram Hydrobromide (celeXA) 40 mg DAILY ORAL 05/09/18 09:00 06/08/18 08:59 05/16/18 09:25 Dextrose (Dextrose 50%) 25 ml Q30M PRN IV Hypoglycemia 05/08/18 01:30 06/07/18 01:29 Dextrose (Dextrose 50%) 50 ml Q30M PRN IV Hypoglycemia 05/08/18 01:30 06/07/18 01:29 Diphenhydramine HCl (Benadryl) 25 mg Q6H PRN ORAL Itching 05/08/18 15:45 06/07/18 15:44 05/15/18 22:44 Docusate Sodium (Colace) 100 mg TWICE A DAY ORAL 05/11/18 18:00 06/10/18 17:59 05/16/18 09:24 Heparin Sodium (Porcine) (Heparin 5000 units/ml) 5,000 units EVERY 8 HOURS SUBQ 05/08/18 06:00 06/07/18 05:59 05/16/18 06:25 Hydromorphone HCl (Dilaudid) 1 mg Q4H PRN IVP Severe Pain (Pain Scale 7-10) 05/15/18 06:30 05/22/18 06:29 05/15/18 21:29 Insulin Aspart (NovoLOG) BEFORE MEALS AND HS SUBQ 05/08/18 06:30 06/07/18 06:29 05/14/18 20:56 Metformin HCl (Glucophage) 1,000 mg BID ORAL 05/09/18 09:00 06/08/18 08:59 05/16/18 09:25 Naloxegol (Movantik) 25 mg DAILY ORAL 05/11/18 17:15 06/10/18 17:14 2/23/19 09:25 Ondansetron HCl (Zofran) 4 mg Q4H PRN IVP Nausea & Vomiting 05/08/18 01:30 06/07/18 01:29 05/12/18 17:31 Patient Own Medication (Patient's Own Med) 1 ea QPM ORAL 05/08/18 20:32 06/07/18 20:31 05/15/18 17:41 Sodium Chloride 1,000 ml @ 75 mls/hr [id number] IV 05/08/18 02:00 06/07/18 01:59 05/16/18 09:25 Trazodone HCl (Desyrel) 300 mg BEDTIME ORAL 05/08/18 21:00 06/07/18 20:59 05/15/18 21:28 Laboratory Tests 05/16/18 05:43: White Blood Count 8.7, Red Blood Count 4.42, Hemoglobin 12.7, Hematocrit 38.4, Mean Corpuscular Volume 87, Mean Corpuscular Hemoglobin 28.7, Mean Corpuscular Hemoglobin Concent 33.0, Red Cell Distribution Width 13.6, Platelet Count 230, Mean Platelet Volume 7.9, Neutrophils (%) (Auto) 63.4, Lymphocytes (%) (Auto) 31.2, Monocytes (%) (Auto) 3.8, Eosinophils (%) (Auto) 0.8, Basophils (%) (Auto ) 0.9, Sodium Level 140, Potassium Level 4.0, Chloride Level 104, Carbon Dioxide Level 28, Anion Gap 8, Blood Urea Nitrogen 6L, Creatinine 0.7, Estimat Glomerular Filtration Rate > 60, Glucose Level 88, Calcium Level 9.5 Height (Feet): 4 Height (Inches): 9.00 Weight (Pounds): 152 Objective exam stable Jasson Livingston MD May 16, 2018 09:36
[2018-05-16 12:00] VITALS: BP 104/60
--- NOTE | 2018-05-16 15:27 | NUR ---
CASE MANAGEMENT: REVIEW SI: PYELONEPHRITIS . LEFT FLANK PAIN CYSTO, LEFT RETROGRADE PYELOGRAM, URETEROSCOPY 05/15 EGD AND COLONOSCOPY 05/13 T 98.6 HR 71 RR 18 BP 103/55 SAT 98% ROOM AIR BUN 6 IS: ZOFRAN IV Q4HR PRN NS IVF @ 75ML/HR DILAUDID Q4HR PRN MED/SURG STATUS DCP: PATIENT IS FROM HOME
[2018-05-16 16:00] VITALS: BP 108/64
--- NOTE | 2018-05-16 17:00 | NUR ---
NURSE NOTES: Discharge pt with family member. no c/o pain, any distress, vital sign was stable. all discharge instruction was given, resume all home med, f/u with primary doctor w/in one week.
--- NOTE | 2018-05-16 18:15 | Internal Med Progress Note ---
Subjective Date of Service: May 16, 2018 Physician Name Robbie Woodard Attending Physician Garcia Augustine MD Current Medications Medications (Trade) Dose Ordered Sig/Edil Route PRN Reason Start Time Stop Time Status Last Admin Dose Admin Acetaminophen (Tylenol) 650 mg Q6H PRN ORAL Mild Pain/Temp > 100.5 05/08/18 01:30 06/07/18 01:29 Citalopram Hydrobromide (celeXA) 40 mg DAILY ORAL 05/09/18 09:00 06/08/18 08:59 05/16/18 09:25 Dextrose (Dextrose 50%) 25 ml Q30M PRN IV Hypoglycemia 05/08/18 01:30 06/07/18 01:29 Dextrose (Dextrose 50%) 50 ml Q30M PRN IV Hypoglycemia 05/08/18 01:30 06/07/18 01:29 Diphenhydramine HCl (Benadryl) 25 mg Q6H PRN ORAL Itching 05/08/18 15:45 06/07/18 15:44 05/15/18 22:44 Docusate Sodium (Colace) 100 mg TWICE A DAY ORAL 05/11/18 18:00 06/10/18 17:59 05/16/18 09:24 Heparin Sodium (Porcine) (Heparin 5000 units/ml) 5,000 units EVERY 8 HOURS SUBQ 05/08/18 06:00 06/07/18 05:59 05/16/18 14:34 Hydromorphone HCl (Dilaudid) 1 mg Q4H PRN IVP Severe Pain (Pain Scale 7-10) 05/15/18 06:30 05/22/18 06:29 05/15/18 21:29 Insulin Aspart (NovoLOG) BEFORE MEALS AND HS SUBQ 05/08/18 06:30 06/07/18 06:29 05/14/18 20:56 Metformin HCl (Glucophage) 1,000 mg BID ORAL 05/09/18 09:00 06/08/18 08:59 05/16/18 09:25 Naloxegol (Movantik) 25 mg DAILY ORAL 05/11/18 17:15 06/10/18 17:14 05/16/18 09:25 Ondansetron HCl (Zofran) 4 mg Q4H PRN IVP Nausea & Vomiting 05/08/18 01:30 06/07/18 01:29 05/12/18 17:31 Patient Own Medication (Patient's Own Med) 1 ea QPM ORAL 05/08/18 20:32 06/07/18 20:31 05/15/18 17:41 Sodium Chloride 1,000 ml @ 75 mls/hr [id number] IV 05/08/18 02:00 06/07/18 01:59 05/16/18 09:25 Trazodone HCl (Desyrel) 300 mg BEDTIME ORAL 05/08/18 21:00 06/07/18 20:59 05/15/18 21:28 Allergies: Coded Allergies: No Known Allergies (Unverified , 05/07/18) ROS Limited/Unobtainable: No Constitutional: Reports: no symptoms HEENT: Reports: no symptoms Cardiovascular: Reports: no symptoms Respiratory: Reports: no symptoms Gastrointestinal/Abdominal: Reports: no symptoms Genitourinary: Reports: no symptoms Neurologic/Psychiatric: Reports: no symptoms Subjective 52 YO F admitted with flank pain and lower abdominal pain. Now pyelonephritis and persistant LLQ pain. Cover for Int Med-Dr Augustine. S/P EGD and colonoscopy on 05/13/18. Abdominal pain improving. S/P cystoscopy 05/15/18 Objective Last Vital Signs Date Time Temp Pulse Resp B/P (MAP) Pulse Ox O2 Delivery O2 Flow Rate FiO2 05/16/18 12:00 98.6 71 18 104/60 (75) 98 05/16/18 08:11 Room Air 05/15/18 15:52 3 Laboratory Tests Test 05/16/18 05:43 White Blood Count 8.7 K/UL (4.8-10.8) Red Blood Count 4.42 M/UL (4.20-5.40) Hemoglobin 12.7 G/DL (12.0-16.0) Hematocrit 38.4 % (37.0-47.0) Mean Corpuscular Volume 87 FL (80-99) Mean Corpuscular Hemoglobin 28.7 PG (27.0-31.0) Mean Corpuscular Hemoglobin Concent 33.0 G/DL (32.0-36.0) Red Cell Distribution Width 13.6 % (11.6-14.8) Platelet Count 230 K/UL (150-450) Mean Platelet Volume 7.9 FL (6.5-10.1) Neutrophils (%) (Auto) 63.4 % (45.0-75.0) Lymphocytes (%) (Auto) 31.2 % (20.0-45.0) Monocytes (%) (Auto) 3.8 % (1.0-10.0) Eosinophils (%) (Auto) 0.8 % (0.0-3.0) Basophils (%) (Auto) 0.9 % (0.0-2.0) Sodium Level 140 MMOL/L (136-145) Potassium Level 4.0 MMOL/L (3.5-5.1) Chloride Level 104 MMOL/L (98-107) Carbon Dioxide Level 28 MMOL/L (21-32) Anion Gap 8 mmol/L (5-15) Blood Urea Nitrogen 6 mg/dL (7-18) L Creatinine 0.7 MG/DL (0.55-1.30) Estimat Glomerular Filtration Rate > 60 mL/min (>60) Glucose Level 88 MG/DL (74-106) Calcium Level 9.5 MG/DL (8.5-10.1) Intake and Output 05/15/18 05/16/18 19:00 07:00 Intake Total 400 ml 300 ml Balance 400 ml 300 ml IV Total 400 ml 300 ml # Voids 1 Objective PHYSICAL EXAMINATION: GENERAL: The patient is awake, responsive, and not in acute distress. HEENT: Head and neck examination, pupils are reactive to light. Extraocular movements are intact. Neck was supple. No JVD. LUNGS: Good air entry. No wheezing or rales. HEART: S1 and S2. Distant heart sounds. No murmurs or gallops. ABDOMEN: Soft, morbidly obese, tender in the left flank area, left lower quadrant. No rebound tenderness. No fluid shift. EXTREMITIES: No cyanosis, clubbing, or edema. NEUROLOGIC: Cranial nerves II through XII grossly intact. Motor is 5/5 in all extremities. Gait is intact. Assessment/Plan Assessment/Plan ASSESSMENT: 1. Left flank pain as well as left lower quadrant abdominal pain, UTI and pyelonephritis. 2. Diabetes type 2. 3. Morbid obesity. 4. gastritis PLAN: Admit the patient to medical floor. Gastroenterology consult for continued LLQ pain ?diverticulitis? CT=bladder stone S/P Endoscopy and colonoscopy 05/13/18=gastritis S/P cystoscopy 05/15/18 Urine culture=mixed gram pos cocci Continue Rocephin, and Accu-Chek with sliding scale. Discussed the case with Dr. Livingston from Urology. Code status is Full Code. DVT prophylaxis. Heparin subcutaneous. We will follow up with a renal ultrasound to rule out any possibility of the obstruction. Discussed with urology and gastroenterology DISCHARGE PLANNING Robbie Woodard MD May 16, 2018 18:15
[2018-05-16] MEDS ORDERED: Ciprofloxacin 500mg tab ORAL SCH (21:00)
[2018-05-17 10:02] VITALS: BP 108/64
--- NOTE | 2018-05-17 10:02 | 48 Hour Post Anesthesia Eval ---
Post Anesthesia Evaluation Procedure: cystoscopy Date of Evaluation: May 17, 2018 Time of Evaluation: 10:02 Blood Pressure Systolic: 108 0: 64 Pulse Rate: 71 Respiratory Rate: 14 Temperature (Fahrenheit): 97.5 O2 Sat by Pulse Oximetry: 98 Airway: patent Nausea: No Vomiting: No If pain is > 6 Comment: 0 Hydration Status: adequate Cardiopulmonary Status: stable Mental Status/LOC: patient returned to baseline Post-Anesthesia Complications: none Follow-up care needed: N/A Cindy Marcial CRNA May 17, 2018 10:02
--- NOTE | 2018-05-17 13:40 | Discharge Summary ---
Discharge Summary Discharge Summary _ DATE OF ADMISSION: 05/07/2018 DATE OF DISCHARGE: 05/16/2018 DISCHARGED BY: Dr. Augustine REASON FOR ADMISSION: 52 years old female with past medical history significant for diabetes mellitus type 2, morbid obesity, history of ovariectomy 2 years ago, presented to emergency department complaining of left flank pain , progressively worsening over the last 2 weeks. Pain described as radiating down to her groin. Patient seen by primary care provider who did not perform any tests or urinalysis. According to patient , pain was becoming progressively worse. Upon evaluation in emergency department vital signs were stable. Laboratory workup revealed no leukocytosis , stable hemoglobin and hematocrit. Urinalysis revealed pyuria, +1 blood, and few bacteria. Stable electrolytes and renal parameters. Glucose 222. Lipase 153 EKG revealed normal sinus rhythm, no acute ischemic changes. CT of the abdomen and pelvis demonstrated 2 mm calculus inor adjacent to the floor of the bladder , could represent a recently passed stone. No evidence of hydronephrosis, hydroureter or perinephric inflammation to suggest otherwise. Gastric distention. No other acute findings. Patient was admitted for further management. CONSULTANTS: GI specialist Dr. Mariee urologist Dr. Livingston [facility] COURSE: Patient admitted to medical surgical floor. Patient started on empiric antibiotics and intravenous fluids. Urologist closely followed. Renal ultrasound subsequently was done and revealed no hydronephrosis or other significant abnormality. Per urologist Urine culture revealed mixed gram-positive organisms. Blood cultures were negative. Repeated urine culture still showed mixed gram-positive organisms. Patient remained afebrile, no leukocytosis. According to urologist, patient possibly recently passed ureteral calculus. Pain management was addressed. Patient undergone cystoscopy with left retrograde pyelogram and ureteroscopy, which revealed chronic cystitis, bladder trigonitis, otherwise essentially negative. No obvious urological source was identified t account for pain, possibly due to recently passed ureteral calculus. Patient was on empiric antibiotics as recommended by urologist. GI specialist followed. Patient undergone upper endoscopy with biopsy and colonoscopy, which revealed gastritis and internal hemorrhoids. Biopsy of gastric antrum revealed chronic mild gastritis, no evidence of H. pylori. Patient started on diet and was advance as tolerated. Blood pressure was closely monitored remained stable. Hemoglobin A1c 12.0. Blood sugar was managed with sliding scale of insulin and metformin. Patient will need further optimization of anti-glycemic regimen as outpatient. Patient was recommended close follow-up with a primary care provider. Patient clinically stabilized and was ready for patient was discharged home. FINAL DIAGNOSES: Left flank pain and abdominal pain of uncertain etiology , possibly secondary to recently passed ureteral calculus Small bladder calculus Status post cystoscopy Status post EGD mild chronic gastritis GERD Diabetes mellitus type 2 Morbid obesity DISCHARGE MEDICATIONS: See Medication Reconciliation list. DISCHARGE INSTRUCTIONS: Patient was discharged home . Follow up with primary care provider in one week. I have been assigned to dictate discharge summary for this account. I was not involved in the patient's management. Karol Rivera NP May 17, 2018 13:40
--- NOTE | 2018-05-17 15:53 | NUR ---
CASE MANAGEMENT: CM review and clinical information (face sheet/ DC summary/ operative notes/ H&P/ ER MD Notes) faxed to ILDA CRUZ @ [phone]
--- NOTE | 2018-05-18 21:45 | Operative Note - Dictated ---
DATE OF OPERATION: 05/15/2018 PREOPERATIVE DIAGNOSIS: Left-sided flank pain. POSTOPERATIVE DIAGNOSIS: Left-sided flank pain. PROCEDURE PERFORMED: Cystoscopy with left retrograde pyelogram and left ureteroscopy. OPERATING SURGEON: Jasson Livingston M.D. ANESTHESIOLOGIST: Cyn Valle M.D. ANESTHESIA: General. INDICATION FOR PROCEDURE: This is a pleasant 52-year-old female. She was admitted to the hospital because of left-sided flank pain. The patient had a workup including a renal ultrasound and a CT scan of the abdomen and pelvis. There was mention of very minimal fullness in the left collecting system and a small calcifications seen in the bladder. There was no obvious hydronephrosis noted and the thought was that she had already just passed a stone. However, the patient had persistent pain on the left side. She had a GI workup that showed gastritis. Because of the patient's persistent pain, the decision was made to proceed with the above procedure. The nature of the procedure was discussed extensively with the patient. Possible risks and complications of bleeding, infection, potential damage to the urethra bladder or ureter, need for further surgery were discussed. No guarantees were given or implied. FINDINGS: The patient appeared to have some bladder mucosal changes of cystitis cystica and trigonitis. The retrograde pyelogram been essentially normal. Ureteroscopy did not show any stones. PROCEDURE IN DETAIL: Informed consent was obtained from the patient. The patient was brought to the operating room and then placed in supine position. After successful general anesthesia was induced, the patient was then placed in a modified dorsal lithotomy position, and her genital area was then prepped and draped in usual sterile fashion. Preoperative IV antibiotics were administered. Time-out was performed. The urethra was gently dilated. Cystoscopy was then performed. The bladder was inspected carefully, I did not see any stones or tumors. She did have some bladder mucosal changes in the trigone consistent with trigonitis and cystitis cystica, but no tumors. The left ureteral orifice was cannulated with the open-ended catheter. Retrograde pyelogram was done. There was no dilatation of the collecting system and the contrast did drain promptly. At this time, rigid ureteroscopy was performed. I was able to look into the orifice, which was patulous. There were no stones or lesions visible in the distal ureter and the ureteroscope was removed. There was minimal of any manipulation and I did not feel a stent was necessary. The bladder was emptied. The patient was awakened and was taken to the recovery room in stable condition. Blood loss was none. No complication. Jasson Livingston M.D. DR: LUCA JOB#: [id number] CC:
== END 2018-05-16 16:50 | disposition home or self-care (01) | DRG 465 ==
LOC: EDBD 16:17 → EMR 18:12 → 3E 20:07 → EDBEDREQ 22:33
PROC: 0DB78ZX Excision of Stomach, Pylorus, Via Natural or Artificial Opening Endoscopic, Diagnostic (ICD-10-PCS; principal; 2018-05-13 12:00)
PROC: 0DJD8ZZ Inspection of Lower Intestinal Tract, Via Natural or Artificial Opening Endoscopic (ICD-10-PCS; 2018-05-13 12:00)
PROC: BT1FZZZ Fluoroscopy of Left Kidney, Ureter and Bladder (ICD-10-PCS; 2018-05-15)
PROC: 0TJ98ZZ Inspection of Ureter, Via Natural or Artificial Opening Endoscopic (ICD-10-PCS; 2018-05-15)
DX: N20.1 Calculus of ureter (principal); E66.01 Morbid (severe) obesity due to excess calories; R10.9 Unspecified abdominal pain; N30.30 Trigonitis without hematuria; E11.9 Type 2 diabetes mellitus without complications; N21.0 Calculus in bladder; K21.9 Gastro-esophageal reflux disease without esophagitis; K29.70 Gastritis, unspecified, without bleeding; K64.8 Other hemorrhoids; R35.0 Frequency of micturition; Z68.29 Body mass index [BMI] 29.0-29.9, adult
CPT/HCPCS: 36415; 74176; 74420; 76000; 76770; 80048; 80053; 81003; 81025; 82270; 82378; 82607; 82728; 82746; 82962; 83036; 83540; 83550; 83690; 83735; 84100; 84439; 84443; 85025; 85044; 85610; 85730; 87040; 87086; 94003; 94150; 96361; 96374; 96375; 96376; 99285; J1815; J2250; J2405

== ENCOUNTER 2018-05-27 22:41 | Inpatient (IN) | payer OTHER ==
[~2018-05-27] VITALS: Ht 152.4 cm; Wt 82.6 kg
[2018-05-27 22:50] VITALS: BP 133/78
[2018-05-27] MEDS ORDERED: METFORMIN HCL1000 M2 ORAL (22:51)
[2018-05-27] MEDS ORDERED: LORAZEPAM1 MG ORAL (22:51)
[2018-05-27] MEDS ORDERED: TRAZODONE HCL300 MG ORAL (22:51)
[2018-05-27] MEDS ORDERED: Ketorolac 30mg Inj IV ONE (23:15)
[2018-05-27 23:27] LABS: BILIRUBIN, URINE NEGATIVE (NEGATIVE); GLUCOSE, URINE (UA) NEGATIVE (NEGATIVE); KETONES,URINE 1+ (NEGATIVE); LEUKOCYTE ESTERASE ,URINE 3+ (NEGATIVE); NITRITE,URINE POSITIVE (NEGATIVE); PH,URINE 6 (4.5-8.0); PROTEIN,URINE 1+ (NEGATIVE); UROBILINOGEN,URINE NORMAL MG/DL (0.0-1.0)
[2018-05-27 23:33] LABS: BASOPHILS % (AUTO) 0.8 % (0.0-2.0); EOSINOPHILS % (AUTO) 0.4 % (0.0-3.0); HEMATOCRIT 42.9 % (37.0-47.0); HEMOGLOBIN 13.5 G/DL (12.0-16.0); LYMPHOCYTES % (AUTO) 23.5 % (20.0-45.0); MEAN CORPUSCULAR VOLUME 87 FL (80-99); MONOCYTES % (AUTO) 4.5 % (1.0-10.0); NEUTROPHILS % (AUTO) 70.8 % (45.0-75.0); PLATELET COUNT 345 K/UL (150-450); RED BLOOD COUNT 4.91 M/UL (4.20-5.40); RED CELL DISTRIBUTION WIDTH 13.2 % (11.6-14.8); WHITE BLOOD COUNT 16.4 K/UL (4.8-10.8)
[2018-05-27 23:36] LABS: ANION GAP 8 mmol/L (5-15); BLOOD UREA NITROGEN 14 mg/dL (7-18); CALCIUM 9.8 MG/DL (8.5-10.1); CARBON DIOXIDE 28 MMOL/L (21-32); CHLORIDE 99 MMOL/L (98-107); CREATININE 0.8 MG/DL (0.55-1.30); POTASSIUM 3.7 MMOL/L (3.5-5.1); SODIUM 135 MMOL/L (136-145)
--- NOTE | 2018-05-27 23:36 | Emergency Room Report ---
History of Present Illness General Chief Complaint: Abdominal Pain Source: Patient Present Illness HPI Patient presents with right flank discomfort with radiation to the suprapubic area ongoing for the past 2 days Patient was here 2 weeks ago with cystoscopy Patient had bladder infection and pyelonephritis a that time Reports that the pain had improved however again 2 days ago returned Similar location Denies any fevers denies any vomiting or diarrhea pain as 8 out of 10 and sharp Allergies: Coded Allergies: No Known Allergies (Unverified , 05/07/18) Patient History Past Medical History: see triage record Pertinent Family History: none Last Menstrual Period: HYACINTH Reviewed Nursing Documentation: PMH: Agreed; PSxH: Agreed Nursing Documentation-PMH Hx Cardiac Problems: No Hx Diabetes: Yes Hx Cancer: No Hx Gastrointestinal Problems: No Hx Neurological Problems: No Review of Systems All Other Systems: negative except mentioned in HPI Physical Exam Vital Signs Date Time Temp Pulse Resp B/P (MAP) Pulse Ox O2 Delivery O2 Flow Rate FiO2 05/27/18 22:46 97.5 86 16 133/78 97 Room Air Sp02 EP Interpretation: reviewed, normal General Appearance: well appearing, no apparent distress Head: normocephalic, atraumatic Eyes: bilateral eye PERRL, bilateral eye EOMI ENT: hearing grossly normal, normal pharynx, TMs + canals normal, uvula midline Neck: full range of motion, supple, no meningismus, no bony tend Respiratory: lungs clear, normal breath sounds, no rhonchi, no respiratory distress, no retraction, no accessory muscle use Cardiovascular #1: normal peripheral pulses, regular rate, rhythm, no edema, no gallop, no JVD, no murmur Gastrointestinal: normal bowel sounds, non tender, soft, no mass, no organomegaly, non-distended, no guarding, no hernia, no pulsatile mass, no rebound, other - Subjectively points to the right lower flank region with radiation to the suprapubic area Genitourinary: no CVA tenderness Musculoskeletal: normal inspection Neurologic: oriented x3, responsive, biomass plant manager III-XII nml as tested, motor strength/ tone normal, sensory intact Psychiatric: mood/affect normal Skin: normal color, no rash, warm/dry, palpation normal Lymphatic: normal inspection, no adenopathy Medical Decision Making Diagnostic Impression: Primary Impression: Pyelonephritis ER Course With the history exam and presentation, multiple differentials considered, including but not limited to appendicitis, gastritis, cholecystitis, diverticulitis Patient's white blood cell count is elevated Urine sample shows too many white blood cells account Patient has further IV hydration provided antibiotics Given the recent procedure and patient's discomfort she is admitted for further care Labs Test 05/27/18 23:00 White Blood Count 16.4 K/UL (4.8-10.8) Red Blood Count 4.91 M/UL (4.20-5.40) Hemoglobin 13.5 G/DL (12.0-16.0) Hematocrit 42.9 % (37.0-47.0) Mean Corpuscular Volume 87 FL (80-99) Mean Corpuscular Hemoglobin 27.6 PG (27.0-31.0) Mean Corpuscular Hemoglobin Concent 31.6 G/DL (32.0-36.0) Red Cell Distribution Width 13.2 % (11.6-14.8) Platelet Count 345 K/UL (150-450) Mean Platelet Volume 6.9 FL (6.5-10.1) Neutrophils (%) (Auto) 70.8 % (45.0-75.0) Lymphocytes (%) (Auto) 23.5 % (20.0-45.0) Monocytes (%) (Auto) 4.5 % (1.0-10.0) Eosinophils (%) (Auto) 0.4 % (0.0-3.0) Basophils (%) (Auto) 0.8 % (0.0-2.0) Urine Color Yellow Urine Appearance Cloudy Urine pH 6 (4.5-8.0) Urine Specific [place] 1.015 (1.005-1.035) Urine Protein 1+ (NEGATIVE) Urine Glucose (UA) Negative (NEGATIVE) Urine Ketones 1+ (NEGATIVE) Urine Blood 1+ (NEGATIVE) Urine Nitrite Positive (NEGATIVE) Urine Bilirubin Negative (NEGATIVE) Urine Urobilinogen Normal MG/DL (0.0-1.0) Urine Leukocyte Esterase 3+ (NEGATIVE) Urine RBC 2-4 /HPF (0 - 2) Urine WBC Tntc /HPF (0 - 2) Urine Squamous Epithelial Cells Many /LPF (NONE/OCC) Urine Bacteria Many /HPF (NONE) Sodium Level 135 MMOL/L (136-145) Potassium Level 3.7 MMOL/L (3.5-5.1) Chloride Level 99 MMOL/L (98-107) Carbon Dioxide Level 28 MMOL/L (21-32) Anion Gap 8 mmol/L (5-15) Blood Urea Nitrogen 14 mg/dL (7-18) Creatinine 0.8 MG/DL (0.55-1.30) Estimat Glomerular Filtration Rate > 60 mL/min (>60) Glucose Level 246 MG/DL (74-106) Calcium Level 9.8 MG/DL (8.5-10.1) Total Bilirubin 0.3 MG/DL (0.2-1.0) Aspartate Amino Transf (AST/SGOT) 13 U/L (15-37) Alanine Aminotransferase (ALT/SGPT) 22 U/L (12-78) Alkaline Phosphatase 101 U/L (46-116) Total Protein 8.5 G/DL (6.4-8.2) Albumin 4.1 G/DL (3.4-5.0) Globulin 4.4 g/dL Albumin/Globulin Ratio 0.9 (1.0-2.7) Lipase 226 U/L (73-393) Last Vital Signs Date Time Temp Pulse Resp B/P (MAP) Pulse Ox O2 Delivery O2 Flow Rate FiO2 05/27/18 22:50 86 16 Room Air 05/27/18 22:50 97.5 133/78 97 Status: improved Disposition: HOME, SELF-CARE Condition: Improved Referrals: YARITZA WINSLOW,REFERRING (PCP) Additional Instructions: Patient is provided with the discharge instructions notified to follow up with primary doctor in the next 2-3 days otherwise return to the er with any worsening symptoms. Please note that this report is being documented using [employer] technology. This can lead to erroneous entry secondary to incorrect interpretation by the dictating instrument. Elizabeth Perales DO May 27, 2018 23:36
[2018-05-27 23:39] LABS: APPEARANCE,URINE CLOUDY; COLOR,URINE YELLOW
[2018-05-27 23:40] LABS: ALANINE AMINOTRANSFERASE 22 U/L (12-78); ALBUMIN 4.1 G/DL (3.4-5.0); ALBUMIN/GLOBULIN RATIO 0.9 (1.0-2.7); ALKALINE PHOSPHATASE 101 U/L (46-116); ASPARTATE AMINO TRANSFERASE 13 U/L (15-37); BILIRUBIN,TOTAL 0.3 MG/DL (0.2-1.0)
[2018-05-28] VITALS (7 sets, daily range): BP systolic 100–134; BP diastolic 55–76
[2018-05-28] MEDS ORDERED: cefTRIAXone 1 GM in NS 55 ML IVPB ONE (00:15)
[2018-05-28] MEDS ORDERED: Morphine Sulfate 4mg/ml Inj (IV USE ONLY) IVP PRN (01:45)
[2018-05-28] MEDS ORDERED: LATUDA60 MG PO (06:20)
[2018-05-28] MEDS ORDERED: Albuterol/Ipratropium 3ml neb HHN PRN (06:30)
[2018-05-28] MEDS: NovoLOG Insulin Flexpen SUBQ SCH ×4 (06:30→20:47)
[2018-05-28] MEDS: Morphine Sulfate 2mg/ml Inj(IV/IM USE ONLY) IVP PRN ×4 (06:41→19:44)
[2018-05-28] MEDS ORDERED: Dextrose 50% 25ml Syringe IV PRN (07:00)
[2018-05-28 08:44] LABS: BILIRUBIN, URINE NEGATIVE (NEGATIVE); COLOR,URINE PALE YELLOW; GLUCOSE, URINE (UA) NEGATIVE (NEGATIVE); KETONES,URINE NEGATIVE (NEGATIVE); LEUKOCYTE ESTERASE ,URINE 3+ (NEGATIVE); NITRITE,URINE NEGATIVE (NEGATIVE); PH,URINE 6 (4.5-8.0); PROTEIN,URINE NEGATIVE (NEGATIVE); UROBILINOGEN,URINE NORMAL MG/DL (0.0-1.0)
[2018-05-28 08:51] LABS: APPEARANCE,URINE SLIGHTLY CLOUDY
[2018-05-28] MEDS: Heparin 5000 units/ml inj SUBQ SCH ×2 (09:15→20:54)
[2018-05-28] MEDS: Cefepime HCl 2 GM in D5W 110 ML IV SCH ×2 (09:15→20:45)
[2018-05-28] MEDS: LORazepam 1mg tab ORAL SCH ×2 (09:15→17:41)
[2018-05-28] MEDS: Vancomycin 1 GM in D5W 275 ML IVPB SCH ×2 (10:12→21:18)
--- NOTE | 2018-05-28 13:38 | Consultation ---
History of Present Illness General Date patient seen: May 28, 2018 Chief Complaint: Abdominal Pain Present Illness HPI 52 y/o F with hx of Dm2, morbid obesity, s/p oophrectomy 2yr ago presents to ED on 05/27 with 2 days of R flank discomfort w/ radiation to suprapubic area. Denies f/c, n/v/d/ Of note, patient was admitted here from 05/05-05/16 for 2 weeks of worsening L flank pain. CT done revealed a calculus and bladder and suggestion of recently passed ureteral calculus. She underwent cystoscopy w/ L retrograde pyelogram and ureteroscopy which showed chronic cystitis and bladder trigonitis. Treated with IV Ceftriaxone while in hospital and discharged on a few days of PO Cipro. Ucx only grew 80-90 K mixed gram positive organisms. Allergies: Coded Allergies: No Known Allergies (Unverified , 05/07/18) Medication History Scheduled Lorazepam* (Lorazepam*), 1 MG ORAL BID, (Reported) Lurasidone HCl (Latuda), 60 MG PO DAILY, (Reported) Metformin Hcl (Metformin Hcl Er), 1,000 MG ORAL BID, (Reported) Trazodone Hcl (Trazodone Hcl), 300 MG ORAL BEDTIME, (Reported) Patient History Healthcare decision maker Resuscitation status Full Code Advanced Directive on File Patient History Narrative Pmhx: as above Shx: reviewed Fhx: non contributory Review of Systems All Other Systems: negative except mentioned in HPI Physical Exam Physical Exam Narrative General Appearance: well appearing, no apparent distress HEENT: normocephalic, atraumatic bilateral eye normal pharynx Neck: full range of motion, supple, no meningismus Respiratory: lungs clear, normal breath sounds, no rhonchi, no respiratory distress, no retraction, no accessory muscle use Cardiovascular normal peripheral pulses, regular rate, rhythm, no edema, no gallop, no JVD, no murmur Gastrointestinal: normal bowel sounds, non tender, soft, no mass, no organomegaly, non-distended, no guarding, no hernia, no pulsatile mass, no rebound, other - Subjectively points to the right lower flank region with radiation to the suprapubic area Genitourinary: no CVA tenderness Musculoskeletal: normal inspection Neurologic: oriented x3, responsive, corporate treasurer III-XII nml as tested, motor strength/ tone normal, sensory intact Psychiatric: mood/affect normal Skin: normal color, no rash, warm/dry, palpation normal Last 24 Hour Vital Signs Date Time Temp Pulse Resp B/P (MAP) Pulse Ox O2 Delivery O2 Flow Rate FiO2 05/28/18 09:37 68 16 Room Air 21 05/28/18 08:45 Room Air 05/28/18 08:00 97.9 72 18 124/61 (82) 98 05/28/18 04:00 97.7 76 18 100/61 (74) 100 05/28/18 01:55 Room Air 05/28/18 01:35 97.8 73 14 134/69 100 Room Air 05/28/18 01:30 97.8 73 14 134/69 100 Room Air 05/27/18 23:43 97.6 05/27/18 22:50 86 16 Room Air 05/27/18 22:50 97.5 86 16 133/78 97 Room Air 05/27/18 22:46 97.5 86 16 133/78 97 Room Air Intake and Output 05/27/18 05/28/18 19:00 07:00 Intake Total 1555 ml Balance 1555 ml Intake IV Total 1555 ml # Voids 1 Laboratory Tests Test 05/27/18 23:00 05/28/18 07:46 White Blood Count 16.4 K/UL (4.8-10.8) H Red Blood Count 4.91 M/UL (4.20-5.40) Hemoglobin 13.5 G/DL (12.0-16.0) Hematocrit 42.9 % (37.0-47.0) Mean Corpuscular Volume 87 FL (80-99) Mean Corpuscular Hemoglobin 27.6 PG (27.0-31.0) Mean Corpuscular Hemoglobin Concent 31.6 G/DL (32.0-36.0) L Red Cell Distribution Width 13.2 % (11.6-14.8) Platelet Count 345 K/UL (150-450) Mean Platelet Volume 6.9 FL (6.5-10.1) Neutrophils (%) (Auto) 70.8 % (45.0-75.0) Lymphocytes (%) (Auto) 23.5 % (20.0-45.0) Monocytes (%) (Auto) 4.5 % (1.0-10.0) Eosinophils (%) (Auto) 0.4 % (0.0-3.0) Basophils (%) (Auto) 0.8 % (0.0-2.0) Urine Color Yellow Pale yellow Urine Appearance Cloudy Slightly cloudy Urine pH 6 (4.5-8.0) 6 (4.5-8.0) Urine Specific [place] 1.015 (1.005-1.035) 1.010 (1.005-1.035) Urine Protein 1+ (NEGATIVE) H Negative (NEGATIVE) Urine Glucose (UA) Negative (NEGATIVE) Negative (NEGATIVE) Urine Ketones 1+ (NEGATIVE) H Negative (NEGATIVE) Urine Blood 1+ (NEGATIVE) H 1+ (NEGATIVE) H Urine Nitrite Positive (NEGATIVE) H Negative (NEGATIVE) Urine Bilirubin Negative (NEGATIVE) Negative (NEGATIVE) Urine Urobilinogen Normal MG/DL (0.0-1.0) Normal MG/DL (0.0-1.0) Urine Leukocyte Esterase 3+ (NEGATIVE) H 3+ (NEGATIVE) H Urine RBC 2-4 /HPF (0 - 2) H 0-2 /HPF (0 - 2) Urine WBC Tntc /HPF (0 - 2) H 40-60 /HPF (0 - 2) H Urine Squamous Epithelial Cells Many /LPF (NONE/OCC) H Few /LPF (NONE/OCC) Urine Bacteria Many /HPF (NONE) H Few /HPF (NONE) Sodium Level 135 MMOL/L (136-145) L Potassium Level 3.7 MMOL/L (3.5-5.1) Chloride Level 99 MMOL/L (98-107) Carbon Dioxide Level 28 MMOL/L (21-32) Anion Gap 8 mmol/L (5-15) Blood Urea Nitrogen 14 mg/dL (7-18) Creatinine 0.8 MG/DL (0.55-1.30) Estimat Glomerular Filtration Rate > 60 mL/min (>60) Glucose Level 246 MG/DL (74-106) H Calcium Level 9.8 MG/DL (8.5-10.1) Total Bilirubin 0.3 MG/DL (0.2-1.0) Aspartate Amino Transf (AST/SGOT) 13 U/L (15-37) L Alanine Aminotransferase (ALT/SGPT) 22 U/L (12-78) Alkaline Phosphatase 101 U/L (46-116) Total Protein 8.5 G/DL (6.4-8.2) H Albumin 4.1 G/DL (3.4-5.0) Globulin 4.4 g/dL Albumin/Globulin Ratio 0.9 (1.0-2.7) L Lipase 226 U/L (73-393) Height (Feet): 5 Height (Inches): 0.00 Weight (Pounds): 186 Medications Current Medications Medications (Trade) Dose Ordered Sig/Edil Route PRN Reason Start Time Stop Time Status Last Admin Dose Admin Acetaminophen (Tylenol) 650 mg Q4H PRN ORAL fever 05/28/18 06:30 06/27/18 06:29 Albuterol/ Ipratropium (Albuterol/ Ipratropium) 3 ml Q4HRT PRN HHN Shortness of Breath 05/28/18 06:30 06/02/18 06:29 Cefepime HCl 2 gm/ Dextrose 110 ml @ 220 mls/hr EVERY 12 HOURS IV 05/28/18 09:00 06/04/18 08:59 05/28/18 09:15 Dextrose (Dextrose 50%) 25 ml Q30M PRN IV Hypoglycemia 05/28/18 07:00 06/27/18 06:48 Dextrose (Dextrose 50%) 50 ml Q30M PRN IV hypoglycemia 05/28/18 07:00 06/27/18 06:59 Heparin Sodium (Porcine) (Heparin 5000 units/ml) 5,000 units EVERY 12 HOURS SUBQ 05/28/18 09:00 06/27/18 08:59 05/28/18 09:15 Insulin Aspart (NovoLOG) BEFORE MEALS AND HS SUBQ 05/28/18 06:30 06/27/18 06:29 05/28/18 12:43 Lorazepam (Ativan) 1 mg BID ORAL 05/28/18 09:00 06/04/18 08:59 05/28/18 09:15 Morphine Sulfate (Morphine Sulfate) 2 mg EVERY 4 HOURS PRN IVP Moderate Pain (Pain Scale 4-6) 05/28/18 06:30 06/04/18 06:29 05/28/18 11:02 Ondansetron HCl (Zofran) 4 mg Q6H PRN IVP Nausea & Vomiting 3/7/19 06:30 06/27/18 06:29 05/28/18 09:14 Phenazopyridine HCl (Pyridium) 100 mg DAILY PRN ORAL dysuria 05/28/18 06:30 06/27/18 06:29 Polyethylene Glycol (Miralax) 17 gm DAILYPRN PRN ORAL Constipation 05/28/18 06:30 06/27/18 06:29 Temazepam (Restoril) 15 mg HSPRN PRN ORAL Insomnia 05/28/18 06:30 06/04/18 06:29 Trazodone HCl (Desyrel) 300 mg BEDTIME ORAL 05/28/18 21:00 06/27/18 20:59 Vancomycin HCl 1 gm/Dextrose 275 ml @ 183.3 mls/ hr Q12H IVPB 05/28/18 09:00 06/02/18 08:59 05/28/18 10:12 Assessment/Plan Assessment/Plan Abx: IV Vancomycin 05/28- Cefepime 05/28- Ceftriaxone x1 05/28 Assessment: L flank pain, recurrent -hx of same pain 2 wks ago -05/15 s/p L retrograde pyelogram and ureteroscopy which showed chronic cystitis and bladder trigonitis. (received IV Ceftriaxone>PO Cipro);ucx 80-90k Mixed gram positive growth -05/07 CT abdP: 2 mm calculus in or adjacent to the floor the bladder, could represent a recently passed stone. However, there is no evidence of hydronephrosis, hydroureter, or perinephric inflammation to suggest such otherwise. UTI Probable passed ureteral stone ~ 2 weeks ago Afebrile Leukocytosis Dm2 morbid obesity s/p oophrectomy 2yr ago Plan: -Continue empiric IV vancomycin and Cefepime #1 pending urine culture -d/c IV Vancomycin if no gram positive growth -f/u cx -Monitor CBC/CMP, temperatures Thank you for this consultation. Will continue to follow along with you. Discussed with ARMINDA. Sruthi Overton M.D. May 28, 2018 13:38
--- NOTE | 2018-05-28 18:41 | History & Physical ---
History and Physical History & Physicial Dictated for Int Med-Dr Augustine no. [id number]. Robbie Woodard MD May 28, 2018 18:41
[2018-05-28] MEDS: TraZODone 100mg tab ORAL SCH (20:45)
--- NOTE | 2018-05-28 21:02 | History and Physical Report ---
DATE OF ADMISSION: 05/28/2018 CHIEF COMPLAINT: The patient is a 52-year-old female, who presents with chief complaint of right and suprapubic pain. HISTORY OF PRESENT ILLNESS: The patient was admitted to [facility] from May 07 to May 16, 2018. Please see history and physical and discharge summary dictated at that time. The patient was admitted for left bladder calculus. The patient underwent a cystoscopy and left ureteroscopy on May 15, 2018. The patient states history of present illness began two days ago. The patient began to experience right flank pain. This radiates to the suprapubic area. The patient presents to [place] emergency room. The patient was admitted for right flank pain to rule out right renal calculus versus ureteral calculus. REVIEW OF SYSTEMS: CONSTITUTIONAL: The patient denies weight loss or weight gain. The patient denies fevers or chills. HEENT: The patient denies ear or throat pain. The patient denies headache. CARDIOVASCULAR: The patient denies palpitations or chest pain. CHEST: The patient denies wheeze or shortness of breath. ABDOMEN: The patient complains of right flank pain and suprapubic pain as above. The patient denies nausea, vomiting, diarrhea, or constipation. GENITOURINARY: The patient denies dysuria or increased frequency of urination. The patient denies hematuria. NEUROMUSCULAR: The patient denies seizures or generalized weakness. PAST MEDICAL HISTORY: Significant for: 1. Type 2 diabetes. 2. Obesity. PAST SURGICAL HISTORY: Significant for: 1. Ovariectomy. 2. Cystoscopy and left ureteroscopy in April 2018 as above. CURRENT MEDICATIONS: 1. Latuda 60 mg p.o. daily. 2. Metformin 1000 mg p.o. twice daily. 3. Trazodone 300 mg p.o. at bedtime. ALLERGIES: No known drug allergies. SOCIAL HISTORY: The patient is and lives with her . The patient denies tobacco or alcohol use. PHYSICAL EXAMINATION: VITAL SIGNS: Temperature 97.7, respirations 18, pulse 76, and blood pressure 100/61. GENERAL: The patient is a well-developed and well-nourished female, in no apparent distress. HEENT: Eyes, pupils are equal and responsive to light and accommodation. Extraocular movements are intact. NECK: Supple without lymphadenopathy. CHEST: Lungs are clear to auscultation bilaterally without wheezes or rales. CARDIOVASCULAR: Regular rhythm and rate. S1 and S2 are normal without murmurs, rubs, or gallops. ABDOMEN: Soft, nontender, and nondistended. Positive bowel sounds. No evidence of hepatosplenomegaly. Currently, no rebound or guarding noted. EXTREMITIES: Negative for clubbing, cyanosis, or edema. RECTAL: Refused. GENITAL: Refused. NEUROLOGIC: Cranial nerves II through XII are grossly intact without focal deficits. Motor strength is 5/5 bilaterally. Deep tendon reflexes are 2+ plantar. LABORATORY STUDIES: WBC 16.4, hemoglobin 13.5, hematocrit 42.9, and platelets . Sodium 135, potassium 3.7, chloride 99, CO2 28, BUN 14, creatinine 0.8, glucose 246. Urinalysis showed 1+ protein, 1+ ketones, 1+ blood, positive nitrite, 2+ leukocyte esterase with wbc's too numerous to count. ASSESSMENT: This is a 52-year-old female. 1. Urinary tract infection. 2. Right flank pain. 3. Suprapubic pain. 4. Diabetes type 2. 5. Obesity. TREATMENT: 1. Urinary tract infection/flank pain. The patient currently has pyelonephritis by definition. Urine culture is pending. The patient has been started empirically on vancomycin and cefepime. An Infectious Disease consultation has been obtained with Dr. Overton. We will follow recommendations of Infectious Disease. 2. Diabetes type 2. The patient has been placed on a NovoLog sliding scale. 3. Obesity. Robbie Woodard M.D. DR: BRIAN JOB#: [id number] CC:
[2018-05-29] VITALS (9 sets, daily range): BP systolic 77–133; BP diastolic 47–71
[2018-05-29] MEDS: Morphine Sulfate 2mg/ml Inj(IV/IM USE ONLY) IVP PRN ×4 (04:20→20:00)
[2018-05-29] MEDS: NovoLOG Insulin Flexpen SUBQ SCH ×4 (06:05→21:40)
[2018-05-29 06:40] LABS: BASOPHILS % (AUTO) 0.9 % (0.0-2.0); EOSINOPHILS % (AUTO) 1.3 % (0.0-3.0); HEMATOCRIT 38.5 % (37.0-47.0); HEMOGLOBIN 12.4 G/DL (12.0-16.0); MEAN CORPUSCULAR VOLUME 88 FL (80-99); MONOCYTES % (AUTO) 4.3 % (1.0-10.0); NEUTROPHILS % (AUTO) 68.5 % (45.0-75.0); PLATELET COUNT 287 K/UL (150-450); WHITE BLOOD COUNT 7.1 K/UL (4.8-10.8)
[2018-05-29 07:05] LABS: ALANINE AMINOTRANSFERASE 23 U/L (12-78); ALBUMIN 3.3 G/DL (3.4-5.0); ALBUMIN/GLOBULIN RATIO 0.8 (1.0-2.7); ALKALINE PHOSPHATASE 81 U/L (46-116); ANION GAP 8 mmol/L (5-15); ASPARTATE AMINO TRANSFERASE 15 U/L (15-37); BILIRUBIN,TOTAL 0.4 MG/DL (0.2-1.0); BLOOD UREA NITROGEN 7 mg/dL (7-18); CALCIUM 9.1 MG/DL (8.5-10.1); CARBON DIOXIDE 28 MMOL/L (21-32); CHLORIDE 106 MMOL/L (98-107); CREATININE 0.7 MG/DL (0.55-1.30); POTASSIUM 3.8 MMOL/L (3.5-5.1); SODIUM 142 MMOL/L (136-145)
[2018-05-29] MEDS: LORazepam 1mg tab ORAL SCH ×2 (09:23→17:43)
[2018-05-29] MEDS: Cefepime HCl 2 GM in D5W 110 ML IV SCH ×2 (09:24→21:39)
[2018-05-29] MEDS: Heparin 5000 units/ml inj SUBQ SCH ×2 (09:25→21:40)
[2018-05-29] MEDS: Vancomycin 1 GM in D5W 275 ML IVPB SCH (10:20)
--- NOTE | 2018-05-29 12:23 | Infectious Diseases Prog Note ---
Assessment/Plan Assessment/Plan Abx: IV Vancomycin 05/28- Cefepime 05/28- Ceftriaxone x1 05/28 Assessment: L flank pain, recurrent -hx of same pain 2 wks ago -05/15 s/p L retrograde pyelogram and ureteroscopy which showed chronic cystitis and bladder trigonitis. (received IV Ceftriaxone>PO Cipro);ucx 80-90k Mixed gram positive growth -05/07 CT abdP: 2 mm calculus in or adjacent to the floor the bladder, could represent a recently passed stone. However, there is no evidence of hydronephrosis, hydroureter, or perinephric inflammation to suggest such otherwise. UTI/probable L pyelo -u/a wbc tnct, nit +, leuk +3; ucx >100k GNR Probable passed ureteral stone ~ 2 weeks ago Afebrile Leukocytosis, SP Dm2 morbid obesity s/p oophrectomy 2yr ago Plan: -D/c empiric IV vancomycin #2 -COntinue empiric Cefepime #2 pending urine culture -05/28 SP CEftriaxone x1 -f/u cx -Monitor CBC/CMP, temperatures Thank you for this consultation. Will continue to follow along with you. Discussed with RN. Subjective Allergies: Coded Allergies: No Known Allergies (Unverified , 05/07/18) Subjective afebrile leukocytosis resolved Objective Vital Signs Last 24 Hour Vital Signs Date Time Temp Pulse Resp B/P (MAP) Pulse Ox O2 Delivery O2 Flow Rate FiO2 05/29/18 09:00 Room Air 05/29/18 08:00 97.9 75 18 126/62 (83) 95 05/29/18 07:11 86 16 Room Air 21 05/29/18 04:00 98.3 75 18 133/69 (90) 95 05/29/18 02:20 68 105/59 (74) 05/29/18 01:30 65 77/47 (57) 05/29/18 00:00 97.4 72 17 112/63 (79) 95 05/28/18 21:10 76 18 Room Air 21 05/28/18 21:00 Room Air 05/28/18 20:00 98.0 72 18 128/76 (93) 96 05/28/18 16:00 97.9 68 18 110/70 (83) 97 Height (Feet): 5 Height (Inches): 0.00 Weight (Pounds): 186 Objective General Appearance: well appearing, no apparent distress HEENT: normocephalic, atraumatic bilateral eye normal pharynx Neck: full range of motion, supple, no meningismus Respiratory: lungs clear, normal breath sounds, no rhonchi, no respiratory distress, no retraction, no accessory muscle use Cardiovascular normal peripheral pulses, regular rate, rhythm, no edema, no gallop, no JVD, no murmur Gastrointestinal: normal bowel sounds, non tender, soft, no mass, no organomegaly, non-distended, no guarding, no hernia, no pulsatile mass, no rebound, other - Subjectively points to the right lower flank region with radiation to the suprapubic area Genitourinary: no CVA tenderness Musculoskeletal: normal inspection Neurologic: oriented x3, responsive, record retrieval specialist III-XII nml as tested, motor strength/ tone normal, sensory intact Skin: normal color, no rash, warm/dry, palpation normal Microbiology Date/Time Source Procedure Growth Status 05/27/18 23:00 Urine,Clean Catch Urine Culture - Preliminary Gram Negative Bacillus 1 Resulted Laboratory Tests Test 05/29/18 05:55 White Blood Count 7.1 K/UL (4.8-10.8) # Red Blood Count 4.40 M/UL (4.20-5.40) Hemoglobin 12.4 G/DL (12.0-16.0) Hematocrit 38.5 % (37.0-47.0) Mean Corpuscular Volume 88 FL (80-99) Mean Corpuscular Hemoglobin 28.3 PG (27.0-31.0) Mean Corpuscular Hemoglobin Concent 32.3 G/DL (32.0-36.0) Red Cell Distribution Width 13.0 % (11.6-14.8) Platelet Count 287 K/UL (150-450) Mean Platelet Volume 6.7 FL (6.5-10.1) Neutrophils (%) (Auto) 68.5 % (45.0-75.0) Lymphocytes (%) (Auto) 25.0 % (20.0-45.0) Monocytes (%) (Auto) 4.3 % (1.0-10.0) Eosinophils (%) (Auto) 1.3 % (0.0-3.0) Basophils (%) (Auto) 0.9 % (0.0-2.0) Sodium Level 142 MMOL/L (136-145) Potassium Level 3.8 MMOL/L (3.5-5.1) Chloride Level 106 MMOL/L (98-107) Carbon Dioxide Level 28 MMOL/L (21-32) Anion Gap 8 mmol/L (5-15) Blood Urea Nitrogen 7 mg/dL (7-18) Creatinine 0.7 MG/DL (0.55-1.30) Estimat Glomerular Filtration Rate > 60 mL/min (>60) Glucose Level 161 MG/DL (74-106) H Calcium Level 9.1 MG/DL (8.5-10.1) Total Bilirubin 0.4 MG/DL (0.2-1.0) Aspartate Amino Transf (AST/SGOT) 15 U/L (15-37) Alanine Aminotransferase (ALT/SGPT) 23 U/L (12-78) Alkaline Phosphatase 81 U/L (46-116) Total Protein 7.4 G/DL (6.4-8.2) Albumin 3.3 G/DL (3.4-5.0) L Globulin 4.1 g/dL Albumin/Globulin Ratio 0.8 (1.0-2.7) L Current Medications Medications (Trade) Dose Ordered Sig/Edil Route PRN Reason Start Time Stop Time Status Last Admin Dose Admin Acetaminophen (Tylenol) 650 mg Q4H PRN ORAL fever 05/28/18 06:30 06/27/18 06:29 05/29/18 06:15 Albuterol/ Ipratropium (Albuterol/ Ipratropium) 3 ml Q4HRT PRN HHN Shortness of Breath 05/28/18 06:30 06/02/18 06:29 Cefepime HCl 2 gm/ Dextrose 110 ml @ 220 mls/hr EVERY 12 HOURS IV 05/28/18 09:00 06/04/18 08:59 05/29/18 09:24 Dextrose (Dextrose 50%) 25 ml Q30M PRN IV Hypoglycemia 05/28/18 07:00 06/27/18 06:48 Dextrose (Dextrose 50%) 50 ml Q30M PRN IV hypoglycemia 05/28/18 07:00 06/27/18 06:59 Heparin Sodium (Porcine) (Heparin 5000 units/ml) 5,000 units EVERY 12 HOURS SUBQ 05/28/18 09:00 06/27/18 08:59 05/29/18 09:25 Insulin Aspart (NovoLOG) BEFORE MEALS AND HS SUBQ 05/28/18 06:30 06/27/18 06:29 05/29/18 06:05 Lorazepam (Ativan) 1 mg BID ORAL 05/28/18 09:00 06/04/18 08:59 05/29/18 09:23 Morphine Sulfate (Morphine Sulfate) 2 mg EVERY 4 HOURS PRN IVP Moderate Pain (Pain Scale 4-6) 05/28/18 06:30 06/04/18 06:29 05/29/18 10:20 Ondansetron HCl (Zofran) 4 mg Q6H PRN IVP Nausea & Vomiting 05/28/18 06:30 06/27/18 06:29 05/29/18 09:24 Phenazopyridine HCl (Pyridium) 100 mg DAILY PRN ORAL dysuria 05/28/18 06:30 06/27/18 06:29 Polyethylene Glycol (Miralax) 17 gm DAILYPRN PRN ORAL Constipation 05/28/18 06:30 06/27/18 06:29 Sodium Chloride 1,000 ml @ 75 mls/hr [id number] IV 05/29/18 01:30 06/28/18 01:29 05/29/18 01:32 Temazepam (Restoril) 15 mg HSPRN PRN ORAL Insomnia 05/28/18 06:30 06/04/18 06:29 Trazodone HCl (Desyrel) 300 mg BEDTIME ORAL 05/28/18 21:00 06/27/18 20:59 05/28/18 20:45 Vancomycin HCl (Vanco rx to dose) 1 ea DAILY PRN MISC PER RX PROTOCOL 05/28/18 17:00 06/27/18 16:59 Vancomycin HCl 1 gm/Dextrose 275 ml @ 183.3 mls/ hr Q12H IVPB 05/28/18 09:00 06/02/18 08:59 05/29/18 10:20 Sruthi Overton M.D. May 29, 2018 12:23
--- NOTE | 2018-05-29 19:06 | Internal Med Progress Note ---
Subjective Date of Service: May 29, 2018 Physician Name Robbie Woodard Attending Physician Garcia Augustine MD Current Medications Medications (Trade) Dose Ordered Sig/Edil Route PRN Reason Start Time Stop Time Status Last Admin Dose Admin Acetaminophen (Tylenol) 650 mg Q4H PRN ORAL fever 05/28/18 06:30 06/27/18 06:29 05/29/18 06:15 Albuterol/ Ipratropium (Albuterol/ Ipratropium) 3 ml Q4HRT PRN HHN Shortness of Breath 05/28/18 06:30 06/02/18 06:29 Cefepime HCl 2 gm/ Dextrose 110 ml @ 220 mls/hr EVERY 12 HOURS IV 05/28/18 09:00 06/04/18 08:59 05/29/18 09:24 Dextrose (Dextrose 50%) 25 ml Q30M PRN IV Hypoglycemia 05/28/18 07:00 06/27/18 06:48 Dextrose (Dextrose 50%) 50 ml Q30M PRN IV hypoglycemia 05/28/18 07:00 06/27/18 06:59 Heparin Sodium (Porcine) (Heparin 5000 units/ml) 5,000 units EVERY 12 HOURS SUBQ 05/28/18 09:00 06/27/18 08:59 05/29/18 09:25 Insulin Aspart (NovoLOG) BEFORE MEALS AND HS SUBQ 05/28/18 06:30 06/27/18 06:29 05/29/18 17:44 Lorazepam (Ativan) 1 mg BID ORAL 05/28/18 09:00 06/04/18 08:59 05/29/18 17:43 Morphine Sulfate (Morphine Sulfate) 2 mg EVERY 4 HOURS PRN IVP Moderate Pain (Pain Scale 4-6) 05/28/18 06:30 06/04/18 06:29 05/29/18 14:42 Ondansetron HCl (Zofran) 4 mg Q6H PRN IVP Nausea & Vomiting 05/28/18 06:30 06/27/18 06:29 05/29/18 09:24 Phenazopyridine HCl (Pyridium) 100 mg DAILY PRN ORAL dysuria 05/28/18 06:30 06/27/18 06:29 Polyethylene Glycol (Miralax) 17 gm DAILYPRN PRN ORAL Constipation 05/28/18 06:30 06/27/18 06:29 Sodium Chloride 1,000 ml @ 75 mls/hr [id number] IV 05/29/18 01:30 06/28/18 01:29 05/29/18 13:59 Temazepam (Restoril) 15 mg HSPRN PRN ORAL Insomnia 05/28/18 06:30 06/04/18 06:29 Trazodone HCl (Desyrel) 300 mg BEDTIME ORAL 05/28/18 21:00 06/27/18 20:59 05/28/18 20:45 Allergies: Coded Allergies: No Known Allergies (Unverified , 05/07/18) ROS Limited/Unobtainable: No Constitutional: Reports: no symptoms HEENT: Reports: no symptoms Cardiovascular: Reports: no symptoms Respiratory: Reports: no symptoms Gastrointestinal/Abdominal: Reports: no symptoms Genitourinary: Reports: no symptoms Neurologic/Psychiatric: Reports: no symptoms Subjective 52 YO F with history of cystoscopy 2 weeks ago presents with right flank pain. Now UTI and probable pyelonephritis. Cover for Int Med-Dr Augustine Objective Last Vital Signs Date Time Temp Pulse Resp B/P (MAP) Pulse Ox O2 Delivery O2 Flow Rate FiO2 05/29/18 16:00 97.8 71 20 117/71 (86) 98 05/29/18 09:00 Room Air 05/29/18 07:11 21 Laboratory Tests Test 05/29/18 05:55 White Blood Count 7.1 K/UL (4.8-10.8) # Red Blood Count 4.40 M/UL (4.20-5.40) Hemoglobin 12.4 G/DL (12.0-16.0) Hematocrit 38.5 % (37.0-47.0) Mean Corpuscular Volume 88 FL (80-99) Mean Corpuscular Hemoglobin 28.3 PG (27.0-31.0) Mean Corpuscular Hemoglobin Concent 32.3 G/DL (32.0-36.0) Red Cell Distribution Width 13.0 % (11.6-14.8) Platelet Count 287 K/UL (150-450) Mean Platelet Volume 6.7 FL (6.5-10.1) Neutrophils (%) (Auto) 68.5 % (45.0-75.0) Lymphocytes (%) (Auto) 25.0 % (20.0-45.0) Monocytes (%) (Auto) 4.3 % (1.0-10.0) Eosinophils (%) (Auto) 1.3 % (0.0-3.0) Basophils (%) (Auto) 0.9 % (0.0-2.0) Sodium Level 142 MMOL/L (136-145) Potassium Level 3.8 MMOL/L (3.5-5.1) Chloride Level 106 MMOL/L (98-107) Carbon Dioxide Level 28 MMOL/L (21-32) Anion Gap 8 mmol/L (5-15) Blood Urea Nitrogen 7 mg/dL (7-18) Creatinine 0.7 MG/DL (0.55-1.30) Estimat Glomerular Filtration Rate > 60 mL/min (>60) Glucose Level 161 MG/DL (74-106) H Calcium Level 9.1 MG/DL (8.5-10.1) Total Bilirubin 0.4 MG/DL (0.2-1.0) Aspartate Amino Transf (AST/SGOT) 15 U/L (15-37) Alanine Aminotransferase (ALT/SGPT) 23 U/L (12-78) Alkaline Phosphatase 81 U/L (46-116) Total Protein 7.4 G/DL (6.4-8.2) Albumin 3.3 G/DL (3.4-5.0) L Globulin 4.1 g/dL Albumin/Globulin Ratio 0.8 (1.0-2.7) L Microbiology Date/Time Source Procedure Growth Status 05/27/18 23:00 Urine,Clean Catch Urine Culture - Preliminary Gram Negative Bacillus 1 Resulted Intake and Output 05/28/18 05/29/18 19:00 07:00 Intake Total 850 ml 1080.0 ml Balance 850 ml 1080.0 ml Intake Oral 850 ml 360 ml IV Total 720.0 ml # Voids 2 3 Objective PHYSICAL EXAMINATION: GENERAL: The patient is a well-developed and well-nourished female, in no apparent distress. HEENT: Eyes, pupils are equal and responsive to light and accommodation. Extraocular movements are intact. NECK: Supple without lymphadenopathy. CHEST: Lungs are clear to auscultation bilaterally without wheezes or rales. CARDIOVASCULAR: Regular rhythm and rate. S1 and S2 are normal without murmurs, rubs, or gallops. ABDOMEN: Soft, nontender, and nondistended. Positive bowel sounds. No evidence of hepatosplenomegaly. Currently, no rebound or guarding noted. EXTREMITIES: Negative for clubbing, cyanosis, or edema. RECTAL: Refused. GENITAL: Refused. NEUROLOGIC: Cranial nerves II through XII are grossly intact without focal deficits. Motor strength is 5/5 bilaterally. Deep tendon reflexes are 2+ plantar. Assessment/Plan Assessment/Plan ASSESSMENT: This is a 52-year-old female. 1. Urinary tract infection. 2. Right flank pain. 3. Suprapubic pain. 4. Diabetes type 2. 5. Obesity. TREATMENT: 1. Urinary tract infection/flank pain./pyelonephritis by definition. Urine culture =Gram neg claudette-await ID and sens Continue cefepime per Infectious Disease, Dr. Overton. We will follow recommendations of Infectious Disease. 2. Diabetes type 2. The patient has been placed on a NovoLog sliding scale. 3. Obesity. Robbie Woodard MD May 29, 2018 19:06
[2018-05-29] MEDS ORDERED: NS 500ML ONE (20:16)
[2018-05-29] MEDS: TraZODone 100mg tab ORAL SCH (21:39)
[2018-05-30] MEDS: Morphine Sulfate 2mg/ml Inj(IV/IM USE ONLY) IVP PRN ×4 (00:11→17:36)
[2018-05-30 03:55] VITALS: BP 118/62
[2018-05-30] MEDS: NovoLOG Insulin Flexpen SUBQ SCH ×4 (06:03→20:15)
[2018-05-30 06:40] LABS: BASOPHILS % (AUTO) 1.1 % (0.0-2.0); HEMATOCRIT 38.1 % (37.0-47.0); HEMOGLOBIN 12.1 G/DL (12.0-16.0); LYMPHOCYTES % (AUTO) 39.9 % (20.0-45.0); MEAN CORPUSCULAR VOLUME 89 FL (80-99); MONOCYTES % (AUTO) 4.3 % (1.0-10.0); NEUTROPHILS % (AUTO) 53.7 % (45.0-75.0); PLATELET COUNT 290 K/UL (150-450); RED BLOOD COUNT 4.28 M/UL (4.20-5.40); RED CELL DISTRIBUTION WIDTH 13.5 % (11.6-14.8); WHITE BLOOD COUNT 6.5 K/UL (4.8-10.8)
[2018-05-30 06:43] LABS: ANION GAP 6 mmol/L (5-15); BLOOD UREA NITROGEN 9 mg/dL (7-18); CARBON DIOXIDE 31 MMOL/L (21-32); CHLORIDE 106 MMOL/L (98-107); CREATININE 0.7 MG/DL (0.55-1.30); POTASSIUM 3.8 MMOL/L (3.5-5.1); SODIUM 143 MMOL/L (136-145)
[2018-05-30 08:00] VITALS: BP 132/72
[2018-05-30] MEDS: LORazepam 1mg tab ORAL SCH ×2 (09:03→17:36)
[2018-05-30] MEDS: Cefepime HCl 2 GM in D5W 110 ML IV SCH (09:04)
[2018-05-30] MEDS: Heparin 5000 units/ml inj SUBQ SCH ×2 (09:12→20:14)
--- NOTE | 2018-05-30 09:45 | Infectious Diseases Prog Note ---
Assessment/Plan Assessment/Plan Assessment/Plan Abx: IV Vancomycin 05/28- Cefepime 05/28- Ceftriaxone x1 05/28 Assessment: L flank pain, recurrent -hx of same pain 2 wks ago -05/15 s/p L retrograde pyelogram and ureteroscopy which showed chronic cystitis and bladder trigonitis. (received IV Ceftriaxone>PO Cipro);ucx 80-90k Mixed gram positive growth -05/07 CT abdP: 2 mm calculus in or adjacent to the floor the bladder, could represent a recently passed stone. However, there is no evidence of hydronephrosis, hydroureter, or perinephric inflammation to suggest such otherwise. UTI/probable L pyelo -u/a wbc tnct, nit +, leuk +3; ucx >100k ESBL E. coli Probable passed ureteral stone ~ 2 weeks ago Afebrile Leukocytosis, SP Dm2 morbid obesity s/p oophrectomy 2yr ago Plan: - Start Ertapenem #03/30 - 05/30 SP Cefepime #3 -05/29 SP IV vancomycin #2 -05/28 SP CEftriaxone x1 -f/u cx -Monitor CBC/CMP, temperatures Will continue to follow along with you. Subjective Allergies: Coded Allergies: No Known Allergies (Unverified , 05/07/18) Subjective Afebrile Leukocytosis resolved Objective Vital Signs Last 24 Hour Vital Signs Date Time Temp Pulse Resp B/P (MAP) Pulse Ox O2 Delivery O2 Flow Rate FiO2 05/30/18 08:00 97.8 74 14 132/72 (92) 99 05/30/18 03:55 97.3 65 19 118/62 (80) 95 05/30/18 00:41 98.5 05/29/18 23:57 69 20 Room Air 21 05/29/18 23:48 98.5 78 19 106/61 (76) 95 05/29/18 20:10 99.5 79 19 107/54 (71) 96 05/29/18 20:00 Room Air 05/29/18 16:00 97.8 71 20 117/71 (86) 98 05/29/18 12:00 98.7 74 16 118/64 (82) 96 Height (Feet): 5 Height (Inches): 0.00 Weight (Pounds): 186 Objective Gen: NAD HEENT: NCAT, MMM Respiratory: CTAB, No W Cardiovascular: RRR, S1, S2 Gastrointestinal: Soft NT Neurologic: A/O x3 Microbiology Date/Time Source Procedure Growth Status 05/28/18 09:30 Blood Blood Culture - Preliminary NO GROWTH AFTER 24 HOURS Resulted 05/28/18 09:30 Blood Blood Culture - Preliminary NO GROWTH AFTER 24 HOURS Resulted 05/28/18 01:15 Nasal Nares MRSA Culture - Final NO METHICILLIN RESISTANT STAPH AUREUS... Complete 05/27/18 23:00 Urine,Clean Catch Urine Culture - Final Escherichia Coli - Esbl Complete Laboratory Tests Test 05/30/18 04:45 White Blood Count 6.5 K/UL (4.8-10.8) Red Blood Count 4.28 M/UL (4.20-5.40) Hemoglobin 12.1 G/DL (12.0-16.0) Hematocrit 38.1 % (37.0-47.0) Mean Corpuscular Volume 89 FL (80-99) Mean Corpuscular Hemoglobin 28.3 PG (27.0-31.0) Mean Corpuscular Hemoglobin Concent 31.8 G/DL (32.0-36.0) L Red Cell Distribution Width 13.5 % (11.6-14.8) Platelet Count 290 K/UL (150-450) Mean Platelet Volume 7.0 FL (6.5-10.1) Neutrophils (%) (Auto) 53.7 % (45.0-75.0) Lymphocytes (%) (Auto) 39.9 % (20.0-45.0) Monocytes (%) (Auto) 4.3 % (1.0-10.0) Eosinophils (%) (Auto) 1.0 % (0.0-3.0) Basophils (%) (Auto) 1.1 % (0.0-2.0) Sodium Level 143 MMOL/L (136-145) Potassium Level 3.8 MMOL/L (3.5-5.1) Chloride Level 106 MMOL/L (98-107) Carbon Dioxide Level 31 MMOL/L (21-32) Anion Gap 6 mmol/L (5-15) Blood Urea Nitrogen 9 mg/dL (7-18) Creatinine 0.7 MG/DL (0.55-1.30) Estimat Glomerular Filtration Rate > 60 mL/min (>60) Glucose Level 195 MG/DL (74-106) H Calcium Level 9.0 MG/DL (8.5-10.1) Current Medications Medications (Trade) Dose Ordered Sig/Edil Route PRN Reason Start Time Stop Time Status Last Admin Dose Admin Acetaminophen (Tylenol) 650 mg Q4H PRN ORAL fever 05/28/18 06:30 06/27/18 06:29 05/29/18 06:15 Albuterol/ Ipratropium (Albuterol/ Ipratropium) 3 ml Q4HRT PRN HHN Shortness of Breath 05/28/18 06:30 06/02/18 06:29 Cefepime HCl 2 gm/ Dextrose 110 ml @ 220 mls/hr EVERY 12 HOURS IV 05/28/18 09:00 06/04/18 08:59 05/30/18 09:04 Dextrose (Dextrose 50%) 25 ml Q30M PRN IV Hypoglycemia 05/28/18 07:00 06/27/18 06:48 Dextrose (Dextrose 50%) 50 ml Q30M PRN IV hypoglycemia 05/28/18 07:00 06/27/18 06:59 Heparin Sodium (Porcine) (Heparin 5000 units/ml) 5,000 units EVERY 12 HOURS SUBQ 05/28/18 09:00 06/27/18 08:59 05/30/18 09:12 Insulin Aspart (NovoLOG) BEFORE MEALS AND HS SUBQ 05/28/18 06:30 06/27/18 06:29 05/30/18 06:03 Lorazepam (Ativan) 1 mg BID ORAL 05/28/18 09:00 06/04/18 08:59 05/30/18 09:03 Morphine Sulfate (Morphine Sulfate) 2 mg EVERY 4 HOURS PRN IVP Moderate Pain (Pain Scale 4-6) 05/28/18 06:30 06/04/18 06:29 05/30/18 09:05 Ondansetron HCl (Zofran) 4 mg Q6H PRN IVP Nausea & Vomiting 05/28/18 06:30 06/27/18 06:29 05/29/18 09:24 Phenazopyridine HCl (Pyridium) 100 mg DAILY PRN ORAL dysuria 05/28/18 06:30 06/27/18 06:29 Polyethylene Glycol (Miralax) 17 gm DAILYPRN PRN ORAL Constipation 05/28/18 06:30 06/27/18 06:29 Sodium Chloride 1,000 ml @ 75 mls/hr [id number] IV 05/29/18 01:30 06/28/18 01:29 05/30/18 02:47 Temazepam (Restoril) 15 mg HSPRN PRN ORAL Insomnia 05/28/18 06:30 06/04/18 06:29 Trazodone HCl (Desyrel) 300 mg BEDTIME ORAL 05/28/18 21:00 06/27/18 20:59 05/29/18 21:39 Harrison Murdock MD May 30, 2018 09:45
[2018-05-30] MEDS: Ertapenem 1 GM in NS 55 ML IVPB SCH (10:46)
[2018-05-30 12:00] VITALS: BP 127/75
[2018-05-30 16:00] VITALS: BP 113/51
--- NOTE | 2018-05-30 17:55 | Internal Med Progress Note ---
Subjective Date of Service: May 30, 2018 Physician Name Robbie Woodard Attending Physician Garcia Augustine MD Current Medications Medications (Trade) Dose Ordered Sig/Edil Route PRN Reason Start Time Stop Time Status Last Admin Dose Admin Acetaminophen (Tylenol) 650 mg Q4H PRN ORAL fever 05/28/18 06:30 06/27/18 06:29 05/29/18 06:15 Albuterol/ Ipratropium (Albuterol/ Ipratropium) 3 ml Q4HRT PRN HHN Shortness of Breath 05/28/18 06:30 06/02/18 06:29 Dextrose (Dextrose 50%) 25 ml Q30M PRN IV Hypoglycemia 05/28/18 07:00 06/27/18 06:48 Dextrose (Dextrose 50%) 50 ml Q30M PRN IV hypoglycemia 05/28/18 07:00 06/27/18 06:59 Ertapenem 1 gm/ Sodium Chloride 55 ml @ 110 mls/hr Q24H IVPB 05/30/18 11:00 06/04/18 10:59 05/30/18 10:46 Heparin Sodium (Porcine) (Heparin 5000 units/ml) 5,000 units EVERY 12 HOURS SUBQ 05/28/18 09:00 06/27/18 08:59 05/30/18 09:12 Insulin Aspart (NovoLOG) BEFORE MEALS AND HS SUBQ 05/28/18 06:30 06/27/18 06:29 05/30/18 16:42 Lorazepam (Ativan) 1 mg BID ORAL 05/28/18 09:00 06/04/18 08:59 05/30/18 17:36 Morphine Sulfate (Morphine Sulfate) 2 mg EVERY 4 HOURS PRN IVP Moderate Pain (Pain Scale 4-6) 05/28/18 06:30 06/04/18 06:29 05/30/18 17:36 Ondansetron HCl (Zofran) 4 mg Q6H PRN IVP Nausea & Vomiting 05/28/18 06:30 06/27/18 06:29 05/29/18 09:24 Phenazopyridine HCl (Pyridium) 100 mg DAILY PRN ORAL dysuria 05/28/18 06:30 06/27/18 06:29 Polyethylene Glycol (Miralax) 17 gm DAILYPRN PRN ORAL Constipation 05/28/18 06:30 06/27/18 06:29 Sodium Chloride 1,000 ml @ 75 mls/hr [id number] IV 05/29/18 01:30 06/28/18 01:29 05/30/18 17:36 Temazepam (Restoril) 15 mg HSPRN PRN ORAL Insomnia 05/28/18 06:30 06/04/18 06:29 Trazodone HCl (Desyrel) 300 mg BEDTIME ORAL 05/28/18 21:00 06/27/18 20:59 05/29/18 21:39 Allergies: Coded Allergies: No Known Allergies (Unverified , 05/07/18) ROS Limited/Unobtainable: No Constitutional: Reports: no symptoms HEENT: Reports: no symptoms Cardiovascular: Reports: no symptoms Respiratory: Reports: no symptoms Gastrointestinal/Abdominal: Reports: no symptoms Genitourinary: Reports: no symptoms Neurologic/Psychiatric: Reports: no symptoms Subjective 52 YO F with history of cystoscopy 2 weeks ago presents with right flank pain. Now UTI and probable pyelonephritis. Cover for Int Med-Dr Augustine Objective Last Vital Signs Date Time Temp Pulse Resp B/P (MAP) Pulse Ox O2 Delivery O2 Flow Rate FiO2 05/30/18 16:00 98.6 72 15 113/51 (71) 98 05/30/18 11:10 Room Air 21 Laboratory Tests Test 05/30/18 04:45 White Blood Count 6.5 K/UL (4.8-10.8) Red Blood Count 4.28 M/UL (4.20-5.40) Hemoglobin 12.1 G/DL (12.0-16.0) Hematocrit 38.1 % (37.0-47.0) Mean Corpuscular Volume 89 FL (80-99) Mean Corpuscular Hemoglobin 28.3 PG (27.0-31.0) Mean Corpuscular Hemoglobin Concent 31.8 G/DL (32.0-36.0) L Red Cell Distribution Width 13.5 % (11.6-14.8) Platelet Count 290 K/UL (150-450) Mean Platelet Volume 7.0 FL (6.5-10.1) Neutrophils (%) (Auto) 53.7 % (45.0-75.0) Lymphocytes (%) (Auto) 39.9 % (20.0-45.0) Monocytes (%) (Auto) 4.3 % (1.0-10.0) Eosinophils (%) (Auto) 1.0 % (0.0-3.0) Basophils (%) (Auto) 1.1 % (0.0-2.0) Sodium Level 143 MMOL/L (136-145) Potassium Level 3.8 MMOL/L (3.5-5.1) Chloride Level 106 MMOL/L (98-107) Carbon Dioxide Level 31 MMOL/L (21-32) Anion Gap 6 mmol/L (5-15) Blood Urea Nitrogen 9 mg/dL (7-18) Creatinine 0.7 MG/DL (0.55-1.30) Estimat Glomerular Filtration Rate > 60 mL/min (>60) Glucose Level 195 MG/DL (74-106) H Calcium Level 9.0 MG/DL (8.5-10.1) Microbiology Date/Time Source Procedure Growth Status 05/28/18 09:30 Blood Blood Culture - Preliminary NO GROWTH AFTER 24 HOURS Resulted 05/28/18 09:30 Blood Blood Culture - Preliminary NO GROWTH AFTER 24 HOURS Resulted 05/28/18 01:15 Nasal Nares MRSA Culture - Final NO METHICILLIN RESISTANT STAPH AUREUS... Complete 05/27/18 23:00 Urine,Clean Catch Urine Culture - Final Escherichia Coli - Esbl Complete Intake and Output 05/29/18 05/30/18 19:00 07:00 Intake Total 1340 ml Balance 1340 ml Intake Oral 480 ml IV Total 860 ml # Voids 2 Objective PHYSICAL EXAMINATION: GENERAL: The patient is a well-developed and well-nourished female, in no apparent distress. HEENT: Eyes, pupils are equal and responsive to light and accommodation. Extraocular movements are intact. NECK: Supple without lymphadenopathy. CHEST: Lungs are clear to auscultation bilaterally without wheezes or rales. CARDIOVASCULAR: Regular rhythm and rate. S1 and S2 are normal without murmurs, rubs, or gallops. ABDOMEN: Soft, nontender, and nondistended. Positive bowel sounds. No evidence of hepatosplenomegaly. Currently, no rebound or guarding noted. EXTREMITIES: Negative for clubbing, cyanosis, or edema. RECTAL: Refused. GENITAL: Refused. NEUROLOGIC: Cranial nerves II through XII are grossly intact without focal deficits. Motor strength is 5/5 bilaterally. Deep tendon reflexes are 2+ plantar. Assessment/Plan Assessment/Plan ASSESSMENT: This is a 52-year-old female. 1. Urinary tract infection. 2. Right flank pain. 3. Suprapubic pain. 4. Diabetes type 2. 5. Obesity. TREATMENT: 1. Urinary tract infection/flank pain./pyelonephritis by definition. Urine culture =ESBL E.Coli. Continue ertapenem per Infectious Disease, Dr. Overton. 2. Diabetes type 2. The patient has been placed on a NovoLog sliding scale. 3. Obesity. Robbie Woodard MD May 30, 2018 17:55
[2018-05-30] MEDS ORDERED: Tubing IV Secondary IV ONE (20:05)
[2018-05-30] MEDS ORDERED: NS 500ML ONE (20:05)
[2018-05-30] MEDS: TraZODone 100mg tab ORAL SCH (20:12)
[2018-05-30 21:00] VITALS: BP 121/77
[2018-05-31] VITALS: BP 131/62
[2018-05-31 04:00] VITALS: BP 116/65
[2018-05-31] MEDS: NovoLOG Insulin Flexpen SUBQ SCH ×4 (06:15→20:51)
[2018-05-31 07:44] LABS: ANION GAP 6 mmol/L (5-15); BLOOD UREA NITROGEN 8 mg/dL (7-18); CALCIUM 9.4 MG/DL (8.5-10.1); CARBON DIOXIDE 30 MMOL/L (21-32); CHLORIDE 107 MMOL/L (98-107); CREATININE 0.7 MG/DL (0.55-1.30); SODIUM 143 MMOL/L (136-145)
[2018-05-31] MEDS: Morphine Sulfate 2mg/ml Inj(IV/IM USE ONLY) IVP PRN ×3 (07:58→18:53)
[2018-05-31 08:00] VITALS: BP 126/68
[2018-05-31] MEDS: Heparin 5000 units/ml inj SUBQ SCH ×2 (08:00→20:50)
[2018-05-31 08:05] LABS: BASOPHILS % (AUTO) 0.8 % (0.0-2.0); EOSINOPHILS % (AUTO) 1.5 % (0.0-3.0); HEMATOCRIT 37.9 % (37.0-47.0); HEMOGLOBIN 12.1 G/DL (12.0-16.0); LYMPHOCYTES % (AUTO) 37.3 % (20.0-45.0); MEAN CORPUSCULAR VOLUME 89 FL (80-99); MONOCYTES % (AUTO) 5.1 % (1.0-10.0); NEUTROPHILS % (AUTO) 55.3 % (45.0-75.0); PLATELET COUNT 279 K/UL (150-450); RED BLOOD COUNT 4.26 M/UL (4.20-5.40); RED CELL DISTRIBUTION WIDTH 13.5 % (11.6-14.8); WHITE BLOOD COUNT 6.9 K/UL (4.8-10.8)
[2018-05-31] MEDS: Miralax 17gm pkt ORAL PRN (08:21)
[2018-05-31] MEDS: LORazepam 1mg tab ORAL SCH ×2 (09:44→17:29)
[2018-05-31 12:00] VITALS: BP 118/66
[2018-05-31] MEDS: Ertapenem 1 GM in NS 55 ML IVPB SCH (13:44)
--- NOTE | 2018-05-31 15:48 | Internal Med Progress Note ---
Subjective Date of Service: May 31, 2018 Physician Name Robbie Woodard Attending Physician Garcia Augustine MD Current Medications Medications (Trade) Dose Ordered Sig/Edil Route PRN Reason Start Time Stop Time Status Last Admin Dose Admin Acetaminophen (Tylenol) 650 mg Q4H PRN ORAL fever 05/28/18 06:30 06/27/18 06:29 05/29/18 06:15 Albuterol/ Ipratropium (Albuterol/ Ipratropium) 3 ml Q4HRT PRN HHN Shortness of Breath 05/28/18 06:30 06/02/18 06:29 Dextrose (Dextrose 50%) 25 ml Q30M PRN IV Hypoglycemia 05/28/18 07:00 06/27/18 06:48 Dextrose (Dextrose 50%) 50 ml Q30M PRN IV hypoglycemia 05/28/18 07:00 06/27/18 06:59 Ertapenem 1 gm/ Sodium Chloride 55 ml @ 110 mls/hr Q24H IVPB 05/30/18 11:00 06/04/18 10:59 05/31/18 13:44 Heparin Sodium (Porcine) (Heparin 5000 units/ml) 5,000 units EVERY 12 HOURS SUBQ 05/28/18 09:00 06/27/18 08:59 05/31/18 08:00 Insulin Aspart (NovoLOG) BEFORE MEALS AND HS SUBQ 05/28/18 06:30 06/27/18 06:29 05/31/18 13:46 Lorazepam (Ativan) 1 mg BID ORAL 05/28/18 09:00 06/04/18 08:59 05/31/18 09:44 Morphine Sulfate (Morphine Sulfate) 2 mg EVERY 4 HOURS PRN IVP Moderate Pain (Pain Scale 4-6) 05/28/18 06:30 06/04/18 06:29 05/31/18 13:43 Ondansetron HCl (Zofran) 4 mg Q6H PRN IVP Nausea & Vomiting 05/28/18 06:30 06/27/18 06:29 05/29/18 09:24 Phenazopyridine HCl (Pyridium) 100 mg DAILY PRN ORAL dysuria 05/28/18 06:30 06/27/18 06:29 Polyethylene Glycol (Miralax) 17 gm DAILYPRN PRN ORAL Constipation 05/28/18 06:30 06/27/18 06:29 05/31/18 08:21 Sodium Chloride 1,000 ml @ 75 mls/hr [id number] IV 05/29/18 01:30 06/28/18 01:29 05/31/18 06:14 Temazepam (Restoril) 15 mg HSPRN PRN ORAL Insomnia 05/28/18 06:30 06/04/18 06:29 05/30/18 20:12 Trazodone HCl (Desyrel) 300 mg BEDTIME ORAL 05/28/18 21:00 06/27/18 20:59 05/30/18 20:12 Allergies: Coded Allergies: No Known Allergies (Unverified , 05/07/18) ROS Limited/Unobtainable: No Constitutional: Reports: no symptoms HEENT: Reports: no symptoms Cardiovascular: Reports: no symptoms Respiratory: Reports: no symptoms Gastrointestinal/Abdominal: Reports: no symptoms Genitourinary: Reports: no symptoms Neurologic/Psychiatric: Reports: no symptoms Subjective 52 YO F with history of cystoscopy 2 weeks ago presents with right flank pain. Now UTI and pyelonephritis. Cover for Int [facility]-Dr Augustine Objective Last Vital Signs Date Time Temp Pulse Resp B/P (MAP) Pulse Ox O2 Delivery O2 Flow Rate FiO2 05/31/18 14:13 98.5 05/31/18 12:00 65 17 118/66 (83) 98 05/31/18 09:00 Room Air 05/31/18 07:48 21 Laboratory Tests Test 05/31/18 04:45 White Blood Count 6.9 K/UL (4.8-10.8) Red Blood Count 4.26 M/UL (4.20-5.40) Hemoglobin 12.1 G/DL (12.0-16.0) Hematocrit 37.9 % (37.0-47.0) Mean Corpuscular Volume 89 FL (80-99) Mean Corpuscular Hemoglobin 28.4 PG (27.0-31.0) Mean Corpuscular Hemoglobin Concent 31.9 G/DL (32.0-36.0) L Red Cell Distribution Width 13.5 % (11.6-14.8) Platelet Count 279 K/UL (150-450) Mean Platelet Volume 5.9 FL (6.5-10.1) L Neutrophils (%) (Auto) 55.3 % (45.0-75.0) Lymphocytes (%) (Auto) 37.3 % (20.0-45.0) Monocytes (%) (Auto) 5.1 % (1.0-10.0) Eosinophils (%) (Auto) 1.5 % (0.0-3.0) Basophils (%) (Auto) 0.8 % (0.0-2.0) Sodium Level 143 MMOL/L (136-145) Potassium Level 4.0 MMOL/L (3.5-5.1) Chloride Level 107 MMOL/L (98-107) Carbon Dioxide Level 30 MMOL/L (21-32) Anion Gap 6 mmol/L (5-15) Blood Urea Nitrogen 8 mg/dL (7-18) Creatinine 0.7 MG/DL (0.55-1.30) Estimat Glomerular Filtration Rate > 60 mL/min (>60) Glucose Level 150 MG/DL (74-106) H Calcium Level 9.4 MG/DL (8.5-10.1) Intake and Output 05/30/18 05/31/18 19:00 07:00 Intake Total 1275 ml 975 ml Balance 1275 ml 975 ml Intake Oral 360 ml 300 ml IV Total 915 ml 675 ml # Voids 2 1 Objective PHYSICAL EXAMINATION: GENERAL: The patient is a well-developed and well-nourished female, in no apparent distress. HEENT: Eyes, pupils are equal and responsive to light and accommodation. Extraocular movements are intact. NECK: Supple without lymphadenopathy. CHEST: Lungs are clear to auscultation bilaterally without wheezes or rales. CARDIOVASCULAR: Regular rhythm and rate. S1 and S2 are normal without murmurs, rubs, or gallops. ABDOMEN: Soft, nontender, and nondistended. Positive bowel sounds. No evidence of hepatosplenomegaly. Currently, no rebound or guarding noted. EXTREMITIES: Negative for clubbing, cyanosis, or edema. RECTAL: Refused. GENITAL: Refused. NEUROLOGIC: Cranial nerves II through XII are grossly intact without focal deficits. Motor strength is 5/5 bilaterally. Deep tendon reflexes are 2+ plantar. Assessment/Plan Assessment/Plan ASSESSMENT: This is a 52-year-old female. 1. Urinary tract infection & pyelonephritis 2. Right flank pain. 3. Suprapubic pain. 4. Diabetes type 2. 5. Obesity. TREATMENT: 1. Urinary tract infection/flank pain./pyelonephritis by definition. Urine culture =ESBL E.Coli. Continue ertapenem per Infectious Disease, Dr. Overton. 2. Diabetes type 2. The patient has been placed on a NovoLog sliding scale. 3. Obesity. Robbie Woodard MD May 31, 2018 15:48
[2018-05-31 16:00] VITALS: BP 123/63
[2018-05-31 20:00] VITALS: BP 110/55
[2018-05-31] MEDS: TraZODone 100mg tab ORAL SCH (20:49)
[2018-06-01] VITALS: BP 112/62
[2018-06-01] MEDS: Morphine Sulfate 2mg/ml Inj(IV/IM USE ONLY) IVP PRN ×5 (00:24→20:54)
[2018-06-01 04:00] VITALS: BP 107/60
[2018-06-01] MEDS: NovoLOG Insulin Flexpen SUBQ SCH ×4 (05:56→20:54)
[2018-06-01 07:19] LABS: BASOPHILS % (AUTO) 0.8 % (0.0-2.0); EOSINOPHILS % (AUTO) 1.4 % (0.0-3.0); HEMATOCRIT 37.9 % (37.0-47.0); HEMOGLOBIN 12.2 G/DL (12.0-16.0); LYMPHOCYTES % (AUTO) 37.9 % (20.0-45.0); MEAN CORPUSCULAR VOLUME 89 FL (80-99); MONOCYTES % (AUTO) 5.5 % (1.0-10.0); NEUTROPHILS % (AUTO) 54.4 % (45.0-75.0); PLATELET COUNT 294 K/UL (150-450); RED BLOOD COUNT 4.28 M/UL (4.20-5.40); RED CELL DISTRIBUTION WIDTH 13.6 % (11.6-14.8); WHITE BLOOD COUNT 6.9 K/UL (4.8-10.8)
[2018-06-01 07:34] LABS: ANION GAP 2 mmol/L (5-15); BLOOD UREA NITROGEN 7 mg/dL (7-18); CALCIUM 9.3 MG/DL (8.5-10.1); CARBON DIOXIDE 33 MMOL/L (21-32); CHLORIDE 106 MMOL/L (98-107); CREATININE 0.9 MG/DL (0.55-1.30); SODIUM 141 MMOL/L (136-145)
[2018-06-01 08:00] VITALS: BP 92/60
[2018-06-01] MEDS: LORazepam 1mg tab ORAL SCH ×2 (08:04→17:55)
[2018-06-01] MEDS: Heparin 5000 units/ml inj SUBQ SCH ×2 (08:06→20:52)
--- NOTE | 2018-06-01 11:28 | Infectious Diseases Prog Note ---
Assessment/Plan Assessment/Plan Assessment: L flank pain, recurrent -hx of same pain 2 wks ago -05/15 s/p L retrograde pyelogram and ureteroscopy which showed chronic cystitis and bladder trigonitis. (received IV Ceftriaxone>PO Cipro);ucx 80-90k Mixed gram positive growth -05/07 CT abdP: 2 mm calculus in or adjacent to the floor the bladder, could represent a recently passed stone. However, there is no evidence of hydronephrosis, hydroureter, or perinephric inflammation to suggest such otherwise. UTI/probable L pyelo -u/a wbc tnct, nit +, leuk +3; ucx >100k ESBL E. coli -Bcx NTD Probable passed ureteral stone ~ 2 weeks ago Afebrile Leukocytosis, SP Dm2 morbid obesity s/p oophrectomy 2yr ago Plan: -Continue Ertapenem #05/28 - 05/30 SP Cefepime # -05/29 SP IV vancomycin # -05/28 SP CEftriaxone x1 -f/u cx -Monitor CBC/CMP, temperatures Will continue to follow along with you. Subjective Allergies: Coded Allergies: No Known Allergies (Unverified , 05/07/18) Subjective afebrile no leukocytosis Bcx NTD Objective Vital Signs Last 24 Hour Vital Signs Date Time Temp Pulse Resp B/P (MAP) Pulse Ox O2 Delivery O2 Flow Rate FiO2 06/01/18 04:00 97.5 64 18 107/60 (76) 95 06/01/18 00:00 97.3 60 16 112/62 (79) 96 05/31/18 21:15 64 16 Room Air 21 05/31/18 21:00 Room Air 05/31/18 20:00 97.0 62 18 110/55 (73) 95 05/31/18 19:23 97.6 05/31/18 16:00 97.6 66 18 123/63 (83) 96 05/31/18 12:00 98.5 65 17 118/66 (83) 98 Height (Feet): 5 Height (Inches): 0.00 Weight (Pounds): 186 Objective General Appearance: well appearing, no apparent distress HEENT: normocephalic, atraumatic bilateral eye normal pharynx Neck: full range of motion, supple, no meningismus Respiratory: lungs clear, normal breath sounds, no rhonchi, no respiratory distress, no retraction, no accessory muscle use Cardiovascular normal peripheral pulses, regular rate, rhythm, no edema, no gallop, no JVD, no murmur Gastrointestinal: normal bowel sounds, non tender, soft, no mass, no organomegaly, non-distended, no guarding, no hernia, no pulsatile mass, no rebound, other - Subjectively points to the right lower flank region with radiation to the suprapubic area Genitourinary: no CVA tenderness Musculoskeletal: normal inspection Neurologic: oriented x3, responsive, vice president lending III-XII nml as tested, motor strength/ tone normal, sensory intact Skin: normal color, no rash, warm/dry, palpation normal Laboratory Tests Test 06/01/18 06:45 White Blood Count 6.9 K/UL (4.8-10.8) Red Blood Count 4.28 M/UL (4.20-5.40) Hemoglobin 12.2 G/DL (12.0-16.0) Hematocrit 37.9 % (37.0-47.0) Mean Corpuscular Volume 89 FL (80-99) Mean Corpuscular Hemoglobin 28.6 PG (27.0-31.0) Mean Corpuscular Hemoglobin Concent 32.2 G/DL (32.0-36.0) Red Cell Distribution Width 13.6 % (11.6-14.8) Platelet Count 294 K/UL (150-450) Mean Platelet Volume 7.7 FL (6.5-10.1) Neutrophils (%) (Auto) 54.4 % (45.0-75.0) Lymphocytes (%) (Auto) 37.9 % (20.0-45.0) Monocytes (%) (Auto) 5.5 % (1.0-10.0) Eosinophils (%) (Auto) 1.4 % (0.0-3.0) Basophils (%) (Auto) 0.8 % (0.0-2.0) Sodium Level 141 MMOL/L (136-145) Potassium Level 4.0 MMOL/L (3.5-5.1) Chloride Level 106 MMOL/L (98-107) Carbon Dioxide Level 33 MMOL/L (21-32) H Anion Gap 2 mmol/L (5-15) L Blood Urea Nitrogen 7 mg/dL (7-18) Creatinine 0.9 MG/DL (0.55-1.30) Estimat Glomerular Filtration Rate > 60 mL/min (>60) Glucose Level 192 MG/DL (74-106) H Calcium Level 9.3 MG/DL (8.5-10.1) Current Medications Medications (Trade) Dose Ordered Sig/Edil Route PRN Reason Start Time Stop Time Status Last Admin Dose Admin Acetaminophen (Tylenol) 650 mg Q4H PRN ORAL fever 05/28/18 06:30 06/27/18 06:29 05/29/18 06:15 Albuterol/ Ipratropium (Albuterol/ Ipratropium) 3 ml Q4HRT PRN HHN Shortness of Breath 05/28/18 06:30 06/02/18 06:29 Dextrose (Dextrose 50%) 25 ml Q30M PRN IV Hypoglycemia 05/28/18 07:00 06/27/18 06:48 Dextrose (Dextrose 50%) 50 ml Q30M PRN IV hypoglycemia 05/28/18 07:00 06/27/18 06:59 Ertapenem 1 gm/ Sodium Chloride 55 ml @ 110 mls/hr Q24H IVPB 05/30/18 11:00 06/04/18 10:59 05/31/18 13:44 Heparin Sodium (Porcine) (Heparin 5000 units/ml) 5,000 units EVERY 12 HOURS SUBQ 05/28/18 09:00 06/27/18 08:59 06/01/18 08:06 Insulin Aspart (NovoLOG) BEFORE MEALS AND HS SUBQ 05/28/18 06:30 06/27/18 06:29 06/01/18 05:56 Lorazepam (Ativan) 1 mg BID ORAL 05/28/18 09:00 06/04/18 08:59 06/01/18 08:04 Morphine Sulfate (Morphine Sulfate) 2 mg EVERY 4 HOURS PRN IVP Moderate Pain (Pain Scale 4-6) 05/28/18 06:30 06/04/18 06:29 06/01/18 03:52 Ondansetron HCl (Zofran) 4 mg Q6H PRN IVP Nausea & Vomiting 05/28/18 06:30 06/27/18 06:29 05/29/18 09:24 Phenazopyridine HCl (Pyridium) 100 mg DAILY PRN ORAL dysuria 05/28/18 06:30 06/27/18 06:29 Polyethylene Glycol (Miralax) 17 gm DAILYPRN PRN ORAL Constipation 05/28/18 06:30 06/27/18 06:29 05/31/18 08:21 Sodium Chloride 1,000 ml @ 75 mls/hr [id number] IV 05/29/18 01:30 06/28/18 01:29 05/31/18 19:07 Temazepam (Restoril) 15 mg HSPRN PRN ORAL Insomnia 05/28/18 06:30 06/04/18 06:29 05/31/18 20:49 Trazodone HCl (Desyrel) 300 mg BEDTIME ORAL 05/28/18 21:00 06/27/18 20:59 05/31/18 20:49 Sruthi Overton M.D. Jun 01, 2018 11:28
[2018-06-01 11:34] VITALS: BP 118/56
[2018-06-01] MEDS: Ertapenem 1 GM in NS 55 ML IVPB SCH (11:36)
[2018-06-01] MEDS: Miralax 17gm pkt ORAL PRN (13:29)
[2018-06-01 16:00] VITALS: BP 136/72
--- NOTE | 2018-06-01 19:58 | Internal Med Progress Note ---
Subjective Date of Service: Jun 01, 2018 Physician Name Robbie Woodard Attending Physician Garcia Augustine MD Current Medications Medications (Trade) Dose Ordered Sig/Edil Route PRN Reason Start Time Stop Time Status Last Admin Dose Admin Acetaminophen (Tylenol) 650 mg Q4H PRN ORAL fever 05/28/18 06:30 06/27/18 06:29 05/29/18 06:15 Albuterol/ Ipratropium (Albuterol/ Ipratropium) 3 ml Q4HRT PRN HHN Shortness of Breath 05/28/18 06:30 06/02/18 06:29 Dextrose (Dextrose 50%) 25 ml Q30M PRN IV Hypoglycemia 05/28/18 07:00 06/27/18 06:48 Dextrose (Dextrose 50%) 50 ml Q30M PRN IV hypoglycemia 05/28/18 07:00 06/27/18 06:59 Ertapenem 1 gm/ Sodium Chloride 55 ml @ 110 mls/hr Q24H IVPB 05/30/18 11:00 06/04/18 10:59 06/01/18 11:36 Heparin Sodium (Porcine) (Heparin 5000 units/ml) 5,000 units EVERY 12 HOURS SUBQ 05/28/18 09:00 06/27/18 08:59 06/01/18 08:06 Insulin Aspart (NovoLOG) BEFORE MEALS AND HS SUBQ 05/28/18 06:30 06/27/18 06:29 06/01/18 17:47 Lorazepam (Ativan) 1 mg BID ORAL 05/28/18 09:00 06/04/18 08:59 06/01/18 17:55 Morphine Sulfate (Morphine Sulfate) 2 mg EVERY 4 HOURS PRN IVP Moderate Pain (Pain Scale 4-6) 05/28/18 06:30 06/04/18 06:29 06/01/18 16:44 Ondansetron HCl (Zofran) 4 mg Q6H PRN IVP Nausea & Vomiting 05/28/18 06:30 06/27/18 06:29 05/29/18 09:24 Phenazopyridine HCl (Pyridium) 100 mg DAILY PRN ORAL dysuria 05/28/18 06:30 06/27/18 06:29 06/01/18 18:05 Polyethylene Glycol (Miralax) 17 gm DAILYPRN PRN ORAL Constipation 05/28/18 06:30 06/27/18 06:29 06/01/18 13:29 Sodium Chloride 1,000 ml @ 75 mls/hr [id number] IV 05/29/18 01:30 06/28/18 01:29 06/01/18 11:36 Temazepam (Restoril) 15 mg HSPRN PRN ORAL Insomnia 05/28/18 06:30 06/04/18 06:29 05/31/18 20:49 Trazodone HCl (Desyrel) 300 mg BEDTIME ORAL 05/28/18 21:00 06/27/18 20:59 05/31/18 20:49 Allergies: Coded Allergies: No Known Allergies (Unverified , 05/07/18) ROS Limited/Unobtainable: No Constitutional: Reports: no symptoms HEENT: Reports: no symptoms Cardiovascular: Reports: no symptoms Respiratory: Reports: no symptoms Gastrointestinal/Abdominal: Reports: no symptoms Genitourinary: Reports: no symptoms Neurologic/Psychiatric: Reports: no symptoms Subjective 52 YO F with history of cystoscopy 2 weeks ago presents with right flank pain. Now UTI and pyelonephritis. Cover for Int Med-Dr Augustine Objective Last Vital Signs Date Time Temp Pulse Resp B/P (MAP) Pulse Ox O2 Delivery O2 Flow Rate FiO2 06/01/18 17:14 98.3 06/01/18 16:00 65 18 136/72 (93) 99 06/01/18 09:00 Room Air 05/31/18 21:15 21 Laboratory Tests Test 06/01/18 06:45 White Blood Count 6.9 K/UL (4.8-10.8) Red Blood Count 4.28 M/UL (4.20-5.40) Hemoglobin 12.2 G/DL (12.0-16.0) Hematocrit 37.9 % (37.0-47.0) Mean Corpuscular Volume 89 FL (80-99) Mean Corpuscular Hemoglobin 28.6 PG (27.0-31.0) Mean Corpuscular Hemoglobin Concent 32.2 G/DL (32.0-36.0) Red Cell Distribution Width 13.6 % (11.6-14.8) Platelet Count 294 K/UL (150-450) Mean Platelet Volume 7.7 FL (6.5-10.1) Neutrophils (%) (Auto) 54.4 % (45.0-75.0) Lymphocytes (%) (Auto) 37.9 % (20.0-45.0) Monocytes (%) (Auto) 5.5 % (1.0-10.0) Eosinophils (%) (Auto) 1.4 % (0.0-3.0) Basophils (%) (Auto) 0.8 % (0.0-2.0) Sodium Level 141 MMOL/L (136-145) Potassium Level 4.0 MMOL/L (3.5-5.1) Chloride Level 106 MMOL/L (98-107) Carbon Dioxide Level 33 MMOL/L (21-32) H Anion Gap 2 mmol/L (5-15) L Blood Urea Nitrogen 7 mg/dL (7-18) Creatinine 0.9 MG/DL (0.55-1.30) Estimat Glomerular Filtration Rate > 60 mL/min (>60) Glucose Level 192 MG/DL (74-106) H Calcium Level 9.3 MG/DL (8.5-10.1) Intake and Output 05/31/18 06/01/18 19:00 07:00 Intake Total 1480 ml 975 ml Balance 1480 ml 975 ml Intake Oral 600 ml 300 ml IV Total 880 ml 675 ml # Voids 2 1 Objective PHYSICAL EXAMINATION: GENERAL: The patient is a well-developed and well-nourished female, in no apparent distress. HEENT: Eyes, pupils are equal and responsive to light and accommodation. Extraocular movements are intact. NECK: Supple without lymphadenopathy. CHEST: Lungs are clear to auscultation bilaterally without wheezes or rales. CARDIOVASCULAR: Regular rhythm and rate. S1 and S2 are normal without murmurs, rubs, or gallops. ABDOMEN: Soft, nontender, and nondistended. Positive bowel sounds. No evidence of hepatosplenomegaly. Currently, no rebound or guarding noted. EXTREMITIES: Negative for clubbing, cyanosis, or edema. RECTAL: Refused. GENITAL: Refused. NEUROLOGIC: Cranial nerves II through XII are grossly intact without focal deficits. Motor strength is 5/5 bilaterally. Deep tendon reflexes are 2+ plantar. Assessment/Plan Assessment/Plan ASSESSMENT: This is a 52-year-old female. 1. Urinary tract infection & pyelonephritis 2. Right flank pain. 3. Suprapubic pain. 4. Diabetes type 2. 5. Obesity. TREATMENT: 1. Urinary tract infection/flank pain./pyelonephritis by definition. Urine culture =ESBL E.Coli. Continue ertapenem per Infectious Disease, Dr. Overton. 2. Diabetes type 2. The patient has been placed on a NovoLog sliding scale. 3. Obesity. Robbie Woodard MD Jun 01, 2018 19:57
[2018-06-01 20:00] VITALS: BP 117/70
[2018-06-01] MEDS: TraZODone 100mg tab ORAL SCH (20:51)
[2018-06-02] VITALS (7 sets, daily range): BP systolic 105–155; BP diastolic 62–83
[2018-06-02] MEDS: NovoLOG Insulin Flexpen SUBQ SCH ×4 (05:39→20:37)
[2018-06-02] MEDS: Morphine Sulfate 2mg/ml Inj(IV/IM USE ONLY) IVP PRN ×4 (05:40→22:05)
[2018-06-02 07:21] LABS: ANION GAP 7 mmol/L (5-15); BASOPHILS % (AUTO) 1.2 % (0.0-2.0); BLOOD UREA NITROGEN 8 mg/dL (7-18); CALCIUM 9.1 MG/DL (8.5-10.1); CARBON DIOXIDE 29 MMOL/L (21-32); CHLORIDE 106 MMOL/L (98-107); CREATININE 0.7 MG/DL (0.55-1.30); EOSINOPHILS % (AUTO) 1.3 % (0.0-3.0); HEMATOCRIT 36.6 % (37.0-47.0); HEMOGLOBIN 11.7 G/DL (12.0-16.0); LYMPHOCYTES % (AUTO) 34.6 % (20.0-45.0); MEAN CORPUSCULAR VOLUME 89 FL (80-99); MONOCYTES % (AUTO) 4.7 % (1.0-10.0); NEUTROPHILS % (AUTO) 58.2 % (45.0-75.0); PLATELET COUNT 278 K/UL (150-450); POTASSIUM 3.9 MMOL/L (3.5-5.1); RED BLOOD COUNT 4.14 M/UL (4.20-5.40); RED CELL DISTRIBUTION WIDTH 13.4 % (11.6-14.8); SODIUM 142 MMOL/L (136-145); WHITE BLOOD COUNT 7.6 K/UL (4.8-10.8)
[2018-06-02] MEDS: LORazepam 1mg tab ORAL SCH ×2 (09:15→18:57)
[2018-06-02] MEDS: Heparin 5000 units/ml inj SUBQ SCH ×2 (09:18→20:37)
[2018-06-02] MEDS: Ertapenem 1 GM in NS 55 ML IVPB SCH (11:45)
--- NOTE | 2018-06-02 11:49 | Infectious Diseases Prog Note ---
Assessment/Plan Assessment/Plan Assessment: L flank pain, recurrent -hx of same pain 2 wks ago -05/15 s/p L retrograde pyelogram and ureteroscopy which showed chronic cystitis and bladder trigonitis. (received IV Ceftriaxone>PO Cipro);ucx 80-90k Mixed gram positive growth -05/07 CT abdP: 2 mm calculus in or adjacent to the floor the bladder, could represent a recently passed stone. However, there is no evidence of hydronephrosis, hydroureter, or perinephric inflammation to suggest such otherwise. UTI/probable L pyelo -u/a wbc tnct, nit +, leuk +3; ucx >100k ESBL E. coli -Bcx NTD Probable passed ureteral stone ~ 2 weeks ago Afebrile Leukocytosis, SP Dm2 morbid obesity s/p oophrectomy 2yr ago Plan: -Continue Ertapenem #06/28 - 05/30 SP Cefepime # -05/29 SP IV vancomycin # -05/28 SP CEftriaxone x1 -f/u cx -Monitor CBC/CMP, temperatures Will continue to follow along with you. Subjective Allergies: Coded Allergies: No Known Allergies (Unverified , 05/07/18) Subjective afebrile no leukocytosis Bcx NTD Objective Vital Signs Last 24 Hour Vital Signs Date Time Temp Pulse Resp B/P (MAP) Pulse Ox O2 Delivery O2 Flow Rate FiO2 06/02/18 08:00 71 18 Room Air 21 06/02/18 06:14 97.9 06/02/18 04:00 97.9 66 16 105/63 (77) 96 06/02/18 00:00 97.7 70 17 125/72 (89) 96 06/01/18 21:00 Room Air 06/01/18 20:02 69 18 Room Air 21 06/01/18 20:00 98.0 73 17 117/70 (86) 95 06/01/18 16:00 98.3 65 18 136/72 (93) 99 Height (Feet): 5 Height (Inches): 0.00 Weight (Pounds): 186 Objective General Appearance: well appearing, no apparent distress HEENT: normocephalic, atraumatic bilateral eye normal pharynx Neck: full range of motion, supple, no meningismus Respiratory: lungs clear, normal breath sounds, no rhonchi, no respiratory distress, no retraction, no accessory muscle use Cardiovascular normal peripheral pulses, regular rate, rhythm, no edema, no gallop, no JVD, no murmur Gastrointestinal: normal bowel sounds, non tender, soft, no mass, no organomegaly, non-distended, no guarding, no hernia, no pulsatile mass, no rebound, other - Subjectively points to the right lower flank region with radiation to the suprapubic area Genitourinary: no CVA tenderness Musculoskeletal: normal inspection Neurologic: oriented x3, responsive, services tech III-XII nml as tested, motor strength/ tone normal, sensory intact Skin: normal color, no rash, warm/dry, palpation normal Laboratory Tests Test 06/02/18 05:20 White Blood Count 7.6 K/UL (4.8-10.8) Red Blood Count 4.14 M/UL (4.20-5.40) L Hemoglobin 11.7 G/DL (12.0-16.0) L Hematocrit 36.6 % (37.0-47.0) L Mean Corpuscular Volume 89 FL (80-99) Mean Corpuscular Hemoglobin 28.2 PG (27.0-31.0) Mean Corpuscular Hemoglobin Concent 31.9 G/DL (32.0-36.0) L Red Cell Distribution Width 13.4 % (11.6-14.8) Platelet Count 278 K/UL (150-450) Mean Platelet Volume 6.4 FL (6.5-10.1) L Neutrophils (%) (Auto) 58.2 % (45.0-75.0) Lymphocytes (%) (Auto) 34.6 % (20.0-45.0) Monocytes (%) (Auto) 4.7 % (1.0-10.0) Eosinophils (%) (Auto) 1.3 % (0.0-3.0) Basophils (%) (Auto) 1.2 % (0.0-2.0) Sodium Level 142 MMOL/L (136-145) Potassium Level 3.9 MMOL/L (3.5-5.1) Chloride Level 106 MMOL/L (98-107) Carbon Dioxide Level 29 MMOL/L (21-32) Anion Gap 7 mmol/L (5-15) Blood Urea Nitrogen 8 mg/dL (7-18) Creatinine 0.7 MG/DL (0.55-1.30) Estimat Glomerular Filtration Rate > 60 mL/min (>60) Glucose Level 132 MG/DL (74-106) H Calcium Level 9.1 MG/DL (8.5-10.1) Current Medications Medications (Trade) Dose Ordered Sig/Edil Route PRN Reason Start Time Stop Time Status Last Admin Dose Admin Acetaminophen (Tylenol) 650 mg Q4H PRN ORAL fever 05/28/18 06:30 06/27/18 06:29 05/29/18 06:15 Dextrose (Dextrose 50%) 25 ml Q30M PRN IV Hypoglycemia 05/28/18 07:00 06/27/18 06:48 Dextrose (Dextrose 50%) 50 ml Q30M PRN IV hypoglycemia 05/28/18 07:00 06/27/18 06:59 Ertapenem 1 gm/ Sodium Chloride 55 ml @ 110 mls/hr Q24H IVPB 05/30/18 11:00 06/04/18 10:59 06/01/18 11:36 Heparin Sodium (Porcine) (Heparin 5000 units/ml) 5,000 units EVERY 12 HOURS SUBQ 05/28/18 09:00 06/27/18 08:59 06/02/18 09:18 Insulin Aspart (NovoLOG) BEFORE MEALS AND HS SUBQ 05/28/18 06:30 06/27/18 06:29 06/02/18 05:39 Lorazepam (Ativan) 1 mg BID ORAL 05/28/18 09:00 06/04/18 08:59 06/02/18 09:15 Morphine Sulfate (Morphine Sulfate) 2 mg EVERY 4 HOURS PRN IVP Moderate Pain (Pain Scale 4-6) 05/28/18 06:30 06/04/18 06:29 06/02/18 05:40 Ondansetron HCl (Zofran) 4 mg Q6H PRN IVP Nausea & Vomiting 05/28/18 06:30 06/27/18 06:29 06/01/18 20:54 Phenazopyridine HCl (Pyridium) 100 mg DAILY PRN ORAL dysuria 05/28/18 06:30 06/27/18 06:29 06/01/18 18:05 Polyethylene Glycol (Miralax) 17 gm DAILYPRN PRN ORAL Constipation 05/28/18 06:30 4/6/19 06:29 06/01/18 13:29 Sodium Chloride 1,000 ml @ 75 mls/hr [id number] IV 05/29/18 01:30 06/28/18 01:29 06/02/18 05:31 Temazepam (Restoril) 15 mg HSPRN PRN ORAL Insomnia 05/28/18 06:30 06/04/18 06:29 05/31/18 20:49 Trazodone HCl (Desyrel) 300 mg BEDTIME ORAL 05/28/18 21:00 06/27/18 20:59 06/01/18 20:51 Sruthi Overton M.D. Jun 02, 2018 11:49
--- NOTE | 2018-06-02 16:50 | Internal Med Progress Note ---
Subjective Date of Service: Jun 02, 2018 Physician Name Robbie Woodard Attending Physician Garcia Augustine MD Current Medications Medications (Trade) Dose Ordered Sig/Edil Route PRN Reason Start Time Stop Time Status Last Admin Dose Admin Acetaminophen (Tylenol) 650 mg Q4H PRN ORAL fever 05/28/18 06:30 06/27/18 06:29 05/29/18 06:15 Dextrose (Dextrose 50%) 25 ml Q30M PRN IV Hypoglycemia 05/28/18 07:00 06/27/18 06:48 Dextrose (Dextrose 50%) 50 ml Q30M PRN IV hypoglycemia 05/28/18 07:00 06/27/18 06:59 Ertapenem 1 gm/ Sodium Chloride 55 ml @ 110 mls/hr Q24H IVPB 05/30/18 11:00 06/04/18 10:59 06/02/18 11:45 Heparin Sodium (Porcine) (Heparin 5000 units/ml) 5,000 units EVERY 12 HOURS SUBQ 05/28/18 09:00 06/27/18 08:59 06/02/18 09:18 Insulin Aspart (NovoLOG) BEFORE MEALS AND HS SUBQ 05/28/18 06:30 06/27/18 06:29 06/02/18 12:16 Lorazepam (Ativan) 1 mg BID ORAL 05/28/18 09:00 06/04/18 08:59 06/02/18 09:15 Morphine Sulfate (Morphine Sulfate) 2 mg EVERY 4 HOURS PRN IVP Moderate Pain (Pain Scale 4-6) 05/28/18 06:30 06/04/18 06:29 06/02/18 11:48 Ondansetron HCl (Zofran) 4 mg Q6H PRN IVP Nausea & Vomiting 05/28/18 06:30 06/27/18 06:29 06/01/18 20:54 Phenazopyridine HCl (Pyridium) 100 mg DAILY PRN ORAL dysuria 05/28/18 06:30 06/27/18 06:29 06/01/18 18:05 Polyethylene Glycol (Miralax) 17 gm DAILYPRN PRN ORAL Constipation 05/28/18 06:30 06/27/18 06:29 06/01/18 13:29 Sodium Chloride 1,000 ml @ 75 mls/hr [id number] IV 05/29/18 01:30 06/28/18 01:29 06/02/18 05:31 Temazepam (Restoril) 15 mg HSPRN PRN ORAL Insomnia 05/28/18 06:30 06/04/18 06:29 05/31/18 20:49 Trazodone HCl (Desyrel) 300 mg BEDTIME ORAL 05/28/18 21:00 06/27/18 20:59 06/01/18 20:51 Allergies: Coded Allergies: No Known Allergies (Unverified , 05/07/18) ROS Limited/Unobtainable: No Constitutional: Reports: no symptoms HEENT: Reports: no symptoms Cardiovascular: Reports: no symptoms Respiratory: Reports: no symptoms Gastrointestinal/Abdominal: Reports: no symptoms Genitourinary: Reports: no symptoms Neurologic/Psychiatric: Reports: no symptoms Subjective 52 YO F with history of cystoscopy 2 weeks ago presents with right flank pain. Now UTI and pyelonephritis. Cover for Int [facility]-Dr Augustine Objective Last Vital Signs Date Time Temp Pulse Resp B/P (MAP) Pulse Ox O2 Delivery O2 Flow Rate FiO2 06/02/18 12:00 97.8 69 14 119/68 (85) 69 06/02/18 09:00 Room Air 06/02/18 08:00 21 Laboratory Tests Test 06/02/18 05:20 White Blood Count 7.6 K/UL (4.8-10.8) Red Blood Count 4.14 M/UL (4.20-5.40) L Hemoglobin 11.7 G/DL (12.0-16.0) L Hematocrit 36.6 % (37.0-47.0) L Mean Corpuscular Volume 89 FL (80-99) Mean Corpuscular Hemoglobin 28.2 PG (27.0-31.0) Mean Corpuscular Hemoglobin Concent 31.9 G/DL (32.0-36.0) L Red Cell Distribution Width 13.4 % (11.6-14.8) Platelet Count 278 K/UL (150-450) Mean Platelet Volume 6.4 FL (6.5-10.1) L Neutrophils (%) (Auto) 58.2 % (45.0-75.0) Lymphocytes (%) (Auto) 34.6 % (20.0-45.0) Monocytes (%) (Auto) 4.7 % (1.0-10.0) Eosinophils (%) (Auto) 1.3 % (0.0-3.0) Basophils (%) (Auto) 1.2 % (0.0-2.0) Sodium Level 142 MMOL/L (136-145) Potassium Level 3.9 MMOL/L (3.5-5.1) Chloride Level 106 MMOL/L (98-107) Carbon Dioxide Level 29 MMOL/L (21-32) Anion Gap 7 mmol/L (5-15) Blood Urea Nitrogen 8 mg/dL (7-18) Creatinine 0.7 MG/DL (0.55-1.30) Estimat Glomerular Filtration Rate > 60 mL/min (>60) Glucose Level 132 MG/DL (74-106) H Calcium Level 9.1 MG/DL (8.5-10.1) Intake and Output 06/01/18 06/02/18 19:00 07:00 Intake Total 1000 ml 785 ml Balance 1000 ml 785 ml Intake Oral 1000 ml IV Total 785 ml # Voids 3 3 Objective PHYSICAL EXAMINATION: GENERAL: The patient is a well-developed and well-nourished female, in no apparent distress. HEENT: Eyes, pupils are equal and responsive to light and accommodation. Extraocular movements are intact. NECK: Supple without lymphadenopathy. CHEST: Lungs are clear to auscultation bilaterally without wheezes or rales. CARDIOVASCULAR: Regular rhythm and rate. S1 and S2 are normal without murmurs, rubs, or gallops. ABDOMEN: Soft, nontender, and nondistended. Positive bowel sounds. No evidence of hepatosplenomegaly. Currently, no rebound or guarding noted. EXTREMITIES: Negative for clubbing, cyanosis, or edema. RECTAL: Refused. GENITAL: Refused. NEUROLOGIC: Cranial nerves II through XII are grossly intact without focal deficits. Motor strength is 5/5 bilaterally. Deep tendon reflexes are 2+ plantar. Assessment/Plan Assessment/Plan ASSESSMENT: This is a 52-year-old female. 1. Urinary tract infection & pyelonephritis 2. Right flank pain. 3. Suprapubic pain. 4. Diabetes type 2. 5. Obesity. TREATMENT: 1. Urinary tract infection/flank pain./pyelonephritis by definition. Urine culture =ESBL E.Coli. Continue ertapenem per Infectious Disease, Dr. Overton. 2. Diabetes type 2. The patient has been placed on a NovoLog sliding scale. 3. Obesity. Robbie Woodard MD Jun 02, 2018 16:50
[2018-06-02] MEDS: TraZODone 100mg tab ORAL SCH (20:36)
[2018-06-02] MEDS: Miralax 17gm pkt ORAL PRN (22:05)
[2018-06-03 04:00] VITALS: BP 118/67
[2018-06-03] MEDS: Morphine Sulfate 2mg/ml Inj(IV/IM USE ONLY) IVP PRN (05:57)
[2018-06-03] MEDS: NovoLOG Insulin Flexpen SUBQ SCH ×2 (05:58→12:19)
[2018-06-03 08:00] VITALS: BP 153/78
[2018-06-03 08:28] LABS: BASOPHILS % (AUTO) 0.9 % (0.0-2.0); EOSINOPHILS % (AUTO) 1.4 % (0.0-3.0); HEMATOCRIT 40.4 % (37.0-47.0); LYMPHOCYTES % (AUTO) 27.5 % (20.0-45.0); MEAN CORPUSCULAR VOLUME 88 FL (80-99); MONOCYTES % (AUTO) 3.7 % (1.0-10.0); NEUTROPHILS % (AUTO) 66.5 % (45.0-75.0); PLATELET COUNT 249 K/UL (150-450); RED BLOOD COUNT 4.57 M/UL (4.20-5.40); RED CELL DISTRIBUTION WIDTH 13.6 % (11.6-14.8); WHITE BLOOD COUNT 6.8 K/UL (4.8-10.8)
[2018-06-03] MEDS: LORazepam 1mg tab ORAL SCH (08:59)
[2018-06-03] MEDS: Heparin 5000 units/ml inj SUBQ SCH (09:01)
[2018-06-03 09:02] LABS: ANION GAP 8 mmol/L (5-15); BLOOD UREA NITROGEN 6 mg/dL (7-18); CALCIUM 9.5 MG/DL (8.5-10.1); CARBON DIOXIDE 25 MMOL/L (21-32); CHLORIDE 107 MMOL/L (98-107); CREATININE 0.7 MG/DL (0.55-1.30); POTASSIUM 3.8 MMOL/L (3.5-5.1); SODIUM 140 MMOL/L (136-145)
[2018-06-03] MEDS: Ertapenem 1 GM in NS 55 ML IVPB SCH (11:00)
[2018-06-03 12:00] VITALS: BP 152/73
--- NOTE | 2018-06-03 12:40 | Internal Med Progress Note ---
Subjective Date of Service: Jun 03, 2018 Physician Name Robbie Woodard Attending Physician Garcia Augustine MD Current Medications Medications (Trade) Dose Ordered Sig/Edil Route PRN Reason Start Time Stop Time Status Last Admin Dose Admin Acetaminophen (Tylenol) 650 mg Q4H PRN ORAL fever 05/28/18 06:30 06/27/18 06:29 05/29/18 06:15 Bisacodyl (Dulcolax) 10 mg ONCE RECTAL 06/03/18 13:00 06/03/18 14:00 Dextrose (Dextrose 50%) 25 ml Q30M PRN IV Hypoglycemia 05/28/18 07:00 06/27/18 06:48 Dextrose (Dextrose 50%) 50 ml Q30M PRN IV hypoglycemia 05/28/18 07:00 06/27/18 06:59 Ertapenem 1 gm/ Sodium Chloride 55 ml @ 110 mls/hr Q24H IVPB 05/30/18 11:00 06/04/18 10:59 06/02/18 11:45 Heparin Sodium (Porcine) (Heparin 5000 units/ml) 5,000 units EVERY 12 HOURS SUBQ 05/28/18 09:00 06/27/18 08:59 06/03/18 09:01 Insulin Aspart (NovoLOG) BEFORE MEALS AND HS SUBQ 05/28/18 06:30 06/27/18 06:29 06/03/18 12:19 Lactulose (Cephulac) 20 gm ONCE ORAL 06/03/18 13:00 06/03/18 14:00 Lorazepam (Ativan) 1 mg BID ORAL 05/28/18 09:00 06/04/18 08:59 06/03/18 08:59 Morphine Sulfate (Morphine Sulfate) 2 mg EVERY 4 HOURS PRN IVP Moderate Pain (Pain Scale 4-6) 05/28/18 06:30 06/04/18 06:29 06/03/18 05:57 Ondansetron HCl (Zofran) 4 mg Q6H PRN IVP Nausea & Vomiting 05/28/18 06:30 06/27/18 06:29 06/01/18 20:54 Phenazopyridine HCl (Pyridium) 100 mg DAILY PRN ORAL dysuria 05/28/18 06:30 06/27/18 06:29 06/01/18 18:05 Polyethylene Glycol (Miralax) 17 gm DAILYPRN PRN ORAL Constipation 05/28/18 06:30 06/27/18 06:29 06/02/18 22:05 Sennosides (Senokot) 8.6 mg ONCE ORAL 06/03/18 13:00 06/03/18 14:00 Sodium Chloride 1,000 ml @ 75 mls/hr [id number] IV 05/29/18 01:30 06/28/18 01:29 06/02/18 20:37 Temazepam (Restoril) 15 mg HSPRN PRN ORAL Insomnia 05/28/18 06:30 06/04/18 06:29 06/02/18 22:56 Trazodone HCl (Desyrel) 300 mg BEDTIME ORAL 05/28/18 21:00 06/27/18 20:59 06/02/18 20:36 Allergies: Coded Allergies: No Known Allergies (Unverified , 05/07/18) ROS Limited/Unobtainable: No Constitutional: Reports: no symptoms HEENT: Reports: no symptoms Cardiovascular: Reports: no symptoms Respiratory: Reports: no symptoms Gastrointestinal/Abdominal: Reports: no symptoms Genitourinary: Reports: no symptoms Neurologic/Psychiatric: Reports: no symptoms Subjective 52 YO F with history of cystoscopy 2 weeks ago presents with right flank pain. Now UTI and pyelonephritis. Cover for Int Jarred-Dr Augustine Objective Last Vital Signs Date Time Temp Pulse Resp B/P (MAP) Pulse Ox O2 Delivery O2 Flow Rate FiO2 06/03/18 09:00 Room Air 06/03/18 08:00 97.1 75 16 153/78 (103) 97 06/02/18 20:45 21 Laboratory Tests Test 06/03/18 07:15 White Blood Count 6.8 K/UL (4.8-10.8) Red Blood Count 4.57 M/UL (4.20-5.40) Hemoglobin 13.0 G/DL (12.0-16.0) Hematocrit 40.4 % (37.0-47.0) Mean Corpuscular Volume 88 FL (80-99) Mean Corpuscular Hemoglobin 28.5 PG (27.0-31.0) Mean Corpuscular Hemoglobin Concent 32.3 G/DL (32.0-36.0) Red Cell Distribution Width 13.6 % (11.6-14.8) Platelet Count 249 K/UL (150-450) Mean Platelet Volume 7.0 FL (6.5-10.1) Neutrophils (%) (Auto) 66.5 % (45.0-75.0) Lymphocytes (%) (Auto) 27.5 % (20.0-45.0) Monocytes (%) (Auto) 3.7 % (1.0-10.0) Eosinophils (%) (Auto) 1.4 % (0.0-3.0) Basophils (%) (Auto) 0.9 % (0.0-2.0) Sodium Level 140 MMOL/L (136-145) Potassium Level 3.8 MMOL/L (3.5-5.1) Chloride Level 107 MMOL/L (98-107) Carbon Dioxide Level 25 MMOL/L (21-32) Anion Gap 8 mmol/L (5-15) Blood Urea Nitrogen 6 mg/dL (7-18) L Creatinine 0.7 MG/DL (0.55-1.30) Estimat Glomerular Filtration Rate > 60 mL/min (>60) Glucose Level 139 MG/DL (74-106) H Calcium Level 9.5 MG/DL (8.5-10.1) Intake and Output 06/02/18 06/03/18 19:00 07:00 Intake Total 1547.5 ml 990 ml Balance 1547.5 ml 990 ml Intake Oral 630 ml 240 ml IV Total 917.5 ml 750 ml # Voids 5 2 Objective PHYSICAL EXAMINATION: GENERAL: The patient is a well-developed and well-nourished female, in no apparent distress. HEENT: Eyes, pupils are equal and responsive to light and accommodation. Extraocular movements are intact. NECK: Supple without lymphadenopathy. CHEST: Lungs are clear to auscultation bilaterally without wheezes or rales. CARDIOVASCULAR: Regular rhythm and rate. S1 and S2 are normal without murmurs, rubs, or gallops. ABDOMEN: Soft, nontender, and nondistended. Positive bowel sounds. No evidence of hepatosplenomegaly. Currently, no rebound or guarding noted. EXTREMITIES: Negative for clubbing, cyanosis, or edema. RECTAL: Refused. GENITAL: Refused. NEUROLOGIC: Cranial nerves II through XII are grossly intact without focal deficits. Motor strength is 5/5 bilaterally. Deep tendon reflexes are 2+ plantar. Assessment/Plan Assessment/Plan ASSESSMENT: This is a 52-year-old female. 1. Urinary tract infection & pyelonephritis 2. Right flank pain. 3. Suprapubic pain. 4. Diabetes type 2. 5. Obesity. TREATMENT: 1. Urinary tract infection/flank pain./pyelonephritis by definition. Urine culture =ESBL E.Coli. Continue ertapenem day #5/7 per Infectious Disease, Dr. Overton. 2. Diabetes type 2. The patient has been placed on a NovoLog sliding scale. 3. Obesity. Robbie Woodard MD Jun 03, 2018 12:40
[2018-06-03] MEDS ORDERED: Sennosides 8.6mg tab ORAL SCH (13:00)
[2018-06-03] MEDS ORDERED: Lactulose 20gm/30ml UDC ORAL SCH (13:00)
--- NOTE | 2018-06-03 15:46 | Infectious Diseases Prog Note ---
Assessment/Plan Assessment/Plan Assessment: L flank pain, recurrent -hx of same pain 2 wks ago -05/15 s/p L retrograde pyelogram and ureteroscopy which showed chronic cystitis and bladder trigonitis. (received IV Ceftriaxone>PO Cipro);ucx 80-90k Mixed gram positive growth -05/07 CT abdP: 2 mm calculus in or adjacent to the floor the bladder, could represent a recently passed stone. However, there is no evidence of hydronephrosis, hydroureter, or perinephric inflammation to suggest such otherwise. UTI/probable L pyelo -u/a wbc tnct, nit +, leuk +3; ucx >100k ESBL E. coli (S Zosyn, Imipenem, Nitrofurantoin) -Bcx NTD Probable passed ureteral stone ~ 2 weeks ago Afebrile Leukocytosis, SP Dm2 morbid obesity s/p oophrectomy 2yr ago Plan: -Continue Ertapenem #07/28 -ok to discharge on PO Macrobid 100mg bid to complete course - 05/30 SP Cefepime #3 -05/29 SP IV vancomycin #2 -05/28 SP CEftriaxone x1 -f/u cx -Monitor CBC/CMP, temperatures Will continue to follow along with you. Subjective Allergies: Coded Allergies: No Known Allergies (Unverified , 05/07/18) Subjective afebrile no leukocytosis Bcx NTD Objective Vital Signs Last 24 Hour Vital Signs Date Time Temp Pulse Resp B/P (MAP) Pulse Ox O2 Delivery O2 Flow Rate FiO2 06/03/18 12:00 97.3 72 14 152/73 (99) 100 06/03/18 09:00 Room Air 06/03/18 08:00 97.1 75 16 153/78 (103) 97 06/03/18 06:27 97.7 06/03/18 04:00 97.7 60 17 118/67 (84) 97 06/02/18 23:47 98.0 74 17 144/78 (100) 95 06/02/18 20:45 73 18 Room Air 21 06/02/18 20:45 94 Room Air 21 06/02/18 20:45 Room Air 21 06/02/18 20:08 Room Air 06/02/18 20:00 97.8 78 18 155/83 (107) 95 06/02/18 16:00 98.2 70 18 136/70 (92) 100 Height (Feet): 5 Height (Inches): 0.00 Weight (Pounds): 182 Objective General Appearance: well appearing, no apparent distress HEENT: normocephalic, atraumatic bilateral eye normal pharynx Neck: full range of motion, supple, no meningismus Respiratory: lungs clear, normal breath sounds, no rhonchi, no respiratory distress, no retraction, no accessory muscle use Cardiovascular normal peripheral pulses, regular rate, rhythm, no edema, no gallop, no JVD, no murmur Gastrointestinal: normal bowel sounds, non tender, soft, no mass, no organomegaly, non-distended, no guarding, no hernia, no pulsatile mass, no rebound, other - Subjectively points to the right lower flank region with radiation to the suprapubic area Genitourinary: no CVA tenderness Musculoskeletal: normal inspection Neurologic: oriented x3, responsive, clinical assistant professor III-XII nml as tested, motor strength/ tone normal, sensory intact Skin: normal color, no rash, warm/dry, palpation normal Laboratory Tests Test 06/03/18 07:15 White Blood Count 6.8 K/UL (4.8-10.8) Red Blood Count 4.57 M/UL (4.20-5.40) Hemoglobin 13.0 G/DL (12.0-16.0) Hematocrit 40.4 % (37.0-47.0) Mean Corpuscular Volume 88 FL (80-99) Mean Corpuscular Hemoglobin 28.5 PG (27.0-31.0) Mean Corpuscular Hemoglobin Concent 32.3 G/DL (32.0-36.0) Red Cell Distribution Width 13.6 % (11.6-14.8) Platelet Count 249 K/UL (150-450) Mean Platelet Volume 7.0 FL (6.5-10.1) Neutrophils (%) (Auto) 66.5 % (45.0-75.0) Lymphocytes (%) (Auto) 27.5 % (20.0-45.0) Monocytes (%) (Auto) 3.7 % (1.0-10.0) Eosinophils (%) (Auto) 1.4 % (0.0-3.0) Basophils (%) (Auto) 0.9 % (0.0-2.0) Sodium Level 140 MMOL/L (136-145) Potassium Level 3.8 MMOL/L (3.5-5.1) Chloride Level 107 MMOL/L (98-107) Carbon Dioxide Level 25 MMOL/L (21-32) Anion Gap 8 mmol/L (5-15) Blood Urea Nitrogen 6 mg/dL (7-18) L Creatinine 0.7 MG/DL (0.55-1.30) Estimat Glomerular Filtration Rate > 60 mL/min (>60) Glucose Level 139 MG/DL (74-106) H Calcium Level 9.5 MG/DL (8.5-10.1) Current Medications Medications (Trade) Dose Ordered Sig/Edil Route PRN Reason Start Time Stop Time Status Last Admin Dose Admin Acetaminophen (Tylenol) 650 mg Q4H PRN ORAL fever 05/28/18 06:30 06/27/18 06:29 05/29/18 06:15 Dextrose (Dextrose 50%) 25 ml Q30M PRN IV Hypoglycemia 05/28/18 07:00 06/27/18 06:48 Dextrose (Dextrose 50%) 50 ml Q30M PRN IV hypoglycemia 05/28/18 07:00 06/27/18 06:59 Ertapenem 1 gm/ Sodium Chloride 55 ml @ 110 mls/hr Q24H IVPB 05/30/18 11:00 06/04/18 10:59 06/02/18 11:45 Heparin Sodium (Porcine) (Heparin 5000 units/ml) 5,000 units EVERY 12 HOURS SUBQ 05/28/18 09:00 06/27/18 08:59 06/03/18 09:01 Insulin Aspart (NovoLOG) BEFORE MEALS AND HS SUBQ 05/28/18 06:30 06/27/18 06:29 06/03/18 12:19 Lorazepam (Ativan) 1 mg BID ORAL 05/28/18 09:00 06/04/18 08:59 06/03/18 08:59 Morphine Sulfate (Morphine Sulfate) 2 mg EVERY 4 HOURS PRN IVP Moderate Pain (Pain Scale 4-6) 05/28/18 06:30 06/04/18 06:29 06/03/18 05:57 Ondansetron HCl (Zofran) 4 mg Q6H PRN IVP Nausea & Vomiting 05/28/18 06:30 06/27/18 06:29 06/01/18 20:54 Phenazopyridine HCl (Pyridium) 100 mg DAILY PRN ORAL dysuria 05/28/18 06:30 06/27/18 06:29 06/01/18 18:05 Polyethylene Glycol (Miralax) 17 gm DAILYPRN PRN ORAL Constipation 05/28/18 06:30 06/27/18 06:29 06/02/18 22:05 Sodium Chloride 1,000 ml @ 75 mls/hr [id number] IV 05/29/18 01:30 06/28/18 01:29 06/02/18 20:37 Temazepam (Restoril) 15 mg HSPRN PRN ORAL Insomnia 05/28/18 06:30 06/04/18 06:29 06/02/18 22:56 Trazodone HCl (Desyrel) 300 mg BEDTIME ORAL 05/28/18 21:00 06/27/18 20:59 06/02/18 20:36 Sruthi Overton M.D. Jun 03, 2018 15:45
[2018-06-03 16:39] VITALS: BP 139/79
--- NOTE | 2018-06-04 13:55 | Discharge Summary ---
Discharge Summary Discharge Summary _ DATE OF ADMISSION: 05/28/2018 DATE OF DISCHARGE: 06/03/2018 DISCHARGED BY: Dr. Garcia Augustine CONSULTANTS: Dr. Sruthi Overton BRIEF HOSPITAL COURSE: Patient is a 53-year-old female, who presented with chief complaint of right and suprapubic pain. Patient was admitted to [facility] from May 07 of May 16, 2018. Patient was admitted for a left bladder calculus. She underwent cystoscopy and left ureteroscopy on May 15, 2018. History of present illness started 2 days prior to admission. She began to experience right flank pain that radiated to the suprapubic area. Elevation at ED, vital signs were stable. Blood work showed leukocytosis, WBC was elevated to 16.4, hemoglobin hematocrit were normal. Urinalysis showed 1+ protein, 1+ ketone, 1+ blood, positive nitrite, 3+ leukocyte esterase, 2-4 RBC, too many to count WBC and many bacteria. He was given IV hydration and was started on antibiotics. She was then admitted for evaluation of pyelonephritis. ID was consulted. Started empirically on IV vancomycin and cefepime pending culture results. Blood glucose was monitored. She was placed on NovoLog sliding scale. Urine culture showed growth of ESBL E. coli. Antibiotics were discontinued. She was started on ertapenem. Blood culture did not isolate any growth. Leukocytosis resolved. She was eventually cleared for discharge home to continue Macrobid 100 mg twice daily x3 more days. FINAL DIAGNOSES: Pyelonephritis with ESBL E. coli UTI Right flank pain Suprapubic pain Diabetes mellitus type 2 Morbid obesity Probable passed ureteral stone approximately 2 weeks ago Status post oophorectomy 2 years ago DISPOSITION: Patient was discharged home. DISCHARGE MEDICATIONS: Refer to Discharge Medication List. DISCHARGE INSTRUCTIONS: Follow-up in a week. I have been assigned to complete a discharge summary on this account, I was not involved with the patient's management. Mini Still NP Jun 04, 2018 13:55
== END 2018-06-03 17:30 | disposition home or self-care (01) | DRG 463 ==
LOC: EMR 22:59 → 4E 05-28 00:38 → EDBEDREQ 05-28 01:01
DX: N12 Tubulo-interstitial nephritis, not specified as acute or chronic (principal); E66.01 Morbid (severe) obesity due to excess calories; E11.9 Type 2 diabetes mellitus without complications; B96.20 Unspecified Escherichia coli [E. coli] as the cause of diseases classified elsewhere; Z68.35 Body mass index [BMI] 35.0-35.9, adult; Z16.12 Extended spectrum beta lactamase (ESBL) resistance
CPT/HCPCS: 36415; 80048; 80053; 81001; 81003; 82962; 83690; 85025; 87040; 87081; 87086; 87181; 94664; 94760; 96361; 96365; 96375; 99285; J1815; J2405